=== PATIENT | female | born 1950 | race African-American/Black ===

== ENCOUNTER 2018-03-24 14:26 | Emergency (ER) | payer MEDICARE, OTHER ==
[2018-03-24] MEDS ORDERED: OXYCODONE-ACETAMINOPHEN 5-325 MG TABLET PO ONE (14:54)
--- NOTE | 2018-03-24 14:56 | ER Document Report ---
ED Medical Screen (RME) - General Chief Complaint: Headache >24 hrs old Stated Complaint: HEADACHE Time Seen by Provider: 03/24/18 14:53 Notes: 67 years old female with a history of CVA x2 multiple sclerosis, presents with occipital headache and left upper neck pain blurring of vision for the last 2 days. Progressively increase in intensity. No pronator drift. Pupils were pupils were 2 mm in size reactive normal extraocular muscles movement. TRAVEL OUTSIDE OF THE [place] IN LAST 30 DAYS: No - Related Data Allergies/Adverse Reactions: No Known Allergies Allergy (Verified 03/24/18 14:41) Physical Exam - Vital signs Vitals: Temp Pulse Resp BP Pulse Ox 98.3 F 71 18 154/82 H 100 03/24/18 14:35 03/24/18 14:35 03/24/18 14:35 03/24/18 14:35 03/24/18 14:35 Course - Vital Signs Vital signs: Temp Pulse Resp BP Pulse Ox 98.3 F 71 18 154/82 H 100 03/24/18 14:35 03/24/18 14:35 03/24/18 14:35 03/24/18 14:35 03/24/18 14:35
--- NOTE | 2018-03-24 15:39 | RADIOLOGY REPORT (SQ) ---
EXAM DESCRIPTION: CT HEAD WITHOUT COMPLETED DATE/TIME: 03/24/2018 3:29 pm REASON FOR STUDY: Headache, neck pain, previous history of stroke COMPARISON: None. TECHNIQUE: Axial images acquired through the brain without intravenous contrast. Images reviewed wi th bone, brain and subdural windows. Additional sagittal and coronal reconstructions were generated. Images stored on PACS. All CT scanners at this facility use dose modulation, iterative reconstruction, and/or weight based d osing when appropriate to reduce radiation dose to as low as reasonably achievable (ALARA). [facility]: Dose Right [facility]: CareDose [facility]: Dose Right [facility]: Teradose 4D [facility]: [employer] RADIATION DOSE: CT Rad equipment meets quality standard of care and radiation dose reduction techniq ues were employed. CTDIvol: 53.2 mGy. DLP: 1177 mGy-cm. mGy. LIMITATIONS: None. FINDINGS: VENTRICLES: Normal size and contour. CEREBRUM: No masses. No hemorrhage. No midline shift. No evidence for acute infarction. Normal gra y/white matter differentiation. Subtle encephalomalacic hypodensity of the right frontal lobe. CEREBELLUM: No masses. No hemorrhage. No alteration of density. No evidence for acute infarction. EXTRAAXIAL SPACES: No fluid collections. No masses. ORBITS AND GLOBE: No intra- or extraconal masses. Normal contour of globe without masses. CALVARIUM: No fracture. PARANASAL SINUSES: No fluid or mucosal thickening. SOFT TISSUES: No mass or hematoma. OTHER: No other significant finding. IMPRESSION: No acute intracranial pathology. Subtle encephalomalacia of the right frontal lobe, of uncertain acuity although in keeping with stated history of prior infarction. Consider MRI to more s ensitively evaluate acute diffusion restricting infarction. EVIDENCE OF ACUTE STROKE: NO. COMMENT: Quality ID # 436: Final reports with documentation of one or more dose reduction techniques (e.g., Automated exposure control, adjustment of the mA and/or kV according to patient size, use of iterative reconstruction technique) TECHNICAL DOCUMENTATION: JOB ID: [id number]- All Rights Reserved Reading location - IP/workstation name: [email or web address]
[2018-03-24 16:22] LABS: ABSOLUTE EOSINOPHILS # (AUTO) 0.1 10^3/uL (0.0-0.6); ABSOLUTE LYMPHOCYTES (AUTO) 0.4 10^3/uL (0.5-4.7); ABSOLUTE MONOCYTES (AUTO) 0.3 10^3/uL (0.1-1.4); ABSOLUTE NEUT (AUTO) 5.8 10^3/uL (1.7-8.2); BASOPHILS % (AUTO) 0.2 % (0-2); EOSINOPHILS % (AUTO) 0.8 % (0-6); HEMATOCRIT 40.4 % (36.0-47.0); HEMOGLOBIN 13.8 g/dL (12.0-15.5); LYMPHOCYTES % (AUTO) 6.5 % (13-45); MEAN CORPUSCULAR HEMOGLOBIN 31.2 pg (27.0-33.4); MEAN CORPUSCULAR HGB CONC 34.2 g/dL (32.0-36.0); MEAN CORPUSCULAR VOLUME 91 fl (80-97); MONOCYTES % (AUTO) 4.7 % (3-13); PLATELET COUNT 283 10^3/uL (150-450); RED BLOOD COUNT 4.43 10^6/uL (3.72-5.28); SEGMENTED NEUTROPHILS % (AUTO) 87.8 % (42-78); TOTAL CELLS COUNTED % (AUTO) 100 %; WHITE BLOOD COUNT 6.6 10^3/uL (4.0-10.5)
[2018-03-24 16:40] LABS: ALANINE AMINOTRANSFERASE 19 U/L (9-52); ALBUMIN 4.5 g/dL (3.5-5.0); ALKALINE PHOSPHATASE 122 U/L (38-126); ANION GAP 12 (5-19); ASPARTATE AMINO TRANSFERASE 18 U/L (14-36); BILIRUBIN,DIRECT 0.2 mg/dL (0.0-0.4); BILIRUBIN,TOTAL 0.3 mg/dL (0.2-1.3); BLOOD UREA NITROGEN 6 mg/dL (7-20); CALCIUM 10.1 mg/dL (8.4-10.2); CARBON DIOXIDE 24 mmol/L (22-30); CHLORIDE 104 mmol/L (98-107); GLUCOSE 124 mg/dL (75-110); POTASSIUM 4.3 mmol/L (3.6-5.0); SODIUM 140.2 mmol/L (137-145)
[2018-03-24] MEDS ORDERED: METOCLOPRAMIDE HCL INJ/PF 10 MG/2 ML SDV IV ONE (16:52)
[2018-03-24] MEDS ORDERED: DIPHENHYDRAMINE HCL 50 MG/ML VIAL IV ONE (16:53)
[2018-03-24] MEDS ORDERED: KETOROLAC TROMETHAMINE INJ/PF 30 MG/1 ML SDV IV ONE (16:53)
[2018-03-24 17:00] LABS: ERYTHROCYTE SEDIMENTATION RATE 31 mm/hr (0-30)
--- NOTE | 2018-03-24 18:25 | ER Document Report ---
ED Headache - General Chief Complaint: Headache >24 hrs old Stated Complaint: HEADACHE Time Seen by Provider: 03/24/18 14:53 Mode of Arrival: Ambulatory Information source: Patient, Relative TRAVEL OUTSIDE OF THE [place] IN LAST 30 DAYS: No - HPI Patient complains to provider of: Other - 67-year-old female past medical history significant for multiple sclerosis in addition to chronic pain and hypertension the presents for evaluation of persistent headache which started in the left side of her neck and is now involving the area around her eyeballs. She denies any fever associated with this cough chest pain fevers chills has had similar headaches in the past but it is more intense and more persistent than has been previously. She also has been noting that she is having increasing forgetfulness over the last several months and occasional falls. - Related Data Allergies/Adverse Reactions: No Known Allergies Allergy (Verified 03/24/18 14:41) Past Medical History - General Information source: Patient, Relative - Social History Smoking Status: Current Every Day Smoker Frequency of alcohol use: None Drug Abuse: None Family History: Other - Multiple sclerosis Patient has suicidal ideation: No Patient has homicidal ideation: No - Past Medical History Cardiac Medical History: Reports: Hx Hypercholesterolemia, Hx Hypertension Pulmonary Medical History: Reports: Hx COPD Neurological Medical History: Reports: Hx Migraine Endocrine Medical History: Reports: Hx Diabetes Mellitus Type 2 Renal/ Medical History: Denies: Hx Peritoneal Dialysis Past Surgical History: Reports: Hx Abdominal Surgery - 4 ft of intestines removed, colostomy and revised, Hx Appendectomy, Hx Cholecystectomy, Hx Hysterectomy Review of Systems - Review of Systems -: Yes All other systems reviewed and negative Physical Exam - Vital signs Vitals: Temp Pulse Resp BP Pulse Ox 98.3 F 71 18 154/82 H 100 03/24/18 14:35 03/24/18 14:35 03/24/18 14:35 03/24/18 14:35 03/24/18 14:35 - General General appearance: Appears well, Alert - HEENT Head: Normocephalic, Atraumatic Eyes: Normal Pupils: PERRL - Respiratory Respiratory status: No respiratory distress Chest status: Nontender Breath sounds: Normal Chest palpation: Normal - Cardiovascular Rhythm: Regular Heart sounds: Normal auscultation Murmur: No - Abdominal Inspection: Normal Distension: No distension Bowel sounds: Normal Tenderness: Nontender Organomegaly: No organomegaly - Back Back: Normal, Nontender - Extremities General upper extremity: Normal inspection, Nontender, Normal color, Normal ROM , Normal temperature General lower extremity: Normal inspection, Nontender, Normal color, Normal ROM , Normal temperature, Normal weight bearing. No: Joni's sign - Neurological Neuro grossly intact: Yes Cognition: Normal Orientation: AAOx4 Gume Coma Scale Eye Opening: Spontaneous Gume Coma Scale Verbal: Oriented [place] Coma Scale Motor: Obeys Commands Gume Coma Scale Total: 15 Speech: Normal Motor strength normal: LUE, RUE, LLE, RLE Sensory: Normal - Psychological Associated symptoms: Normal affect, Normal mood Course - Re-evaluation Re-evalutation: 03/24/18 18:24 67-year-old female presents for evaluation of persistent headache over last several days. She is a frontal headache as well as headache in the side of her neck. She has no focal deficits at this time. She does have a history of MS, through triage she had labs drawn as well as a CT of her head performed all of which were nondiagnostic. We will administer analgesia for headache including Toradol Reglan and Benadryl. We will plan for MRI for investigation of further lesions of the brain and potential worsening ischemic disease. We will plan for reassessment following medication and imaging. 03/24/18 20:05 Patient's symptoms improved greatly after administration of analgesia. She had an MRI which was consistent with her known diagnosis of multiple sclerosis. She had an old infarct but no acute new infarcts identified. Neurologically she is at her baseline, because I believe she would benefit from a brief period of headache control and relief will give prescription for Fioricet and as needed [place]. We will give her a referral to the anesthesiologist and pain specialist for possible consideration of injections. We will discharge in the care of her daughter with return precautions. - Vital Signs Vital signs: Temp Pulse Resp BP Pulse Ox 98.3 F 71 11 L 138/61 H 87 L 03/24/18 14:35 03/24/18 14:35 03/24/18 18:02 03/24/18 18:02 03/24/18 19:05 - Laboratory Result Diagrams: 03/24/18 16:07 03/24/18 16:07 Laboratory results interpreted by me: 03/24/18 03/24/18 16:07 16:07 RDW 15.0 H Seg Neutrophils % 87.8 H Lymphocytes % 6.5 L Absolute Lymphocytes 0.4 L ESR 31 H BUN 6 L Glucose 124 H Discharge - Discharge Clinical Impression: Muscle spasm, Multiple sclerosis, Tension headache Headache Qualifiers: Headache type: unspecified Headache chronicity pattern: unspecified pattern Intractability: not intractable Qualified Code(s): R51 - Headache Condition: Good Disposition: HOME, SELF-CARE Instructions: Tension Headache ([facility]) Additional Instructions: You were seen today in the emergency department for your persistent headache. I believe that your headache is a result of the tension in the muscles attached to your neck on the left side. This could be part of your multiple sclerosis. You had an evaluation including a physical exam as well as an MRI and a CT scan of your head as well as blood work. These are consistent with your previous known issues but they do not show any new obvious strokes or injuries. I do think it will be important for you to follow-up with a neurologist in the coming weeks. You have been given a referral to a local anesthesiologist who is a pain specialist who may be able to help with your muscle spasms in the neck. Return for worsening fevers or chills, inability to eat or drink, or if your headache persist despite the use of medications. Use the medications prescribed to you only as needed for your headache. Prescriptions: Butalb/Acetaminophen/Caffeine [Fioricet 50-300-40 mg Capsule] 1 cap PO Q4 PRN # 30 cap PRN Reason: Hydrocodone/Acetaminophen [[place] 5-325 mg Tablet] 2 tab PO Q8 PRN #12 tab PRN Reason: Referrals: CARMEN BETANCUR MD [ACTIVE STAFF] - Follow up as needed
--- NOTE | 2018-03-24 19:17 | RADIOLOGY REPORT (SQ) ---
EXAM DESCRIPTION: MRI HEAD WITHOUT COMPLETED DATE/TIME: 03/24/2018 6:58 pm REASON FOR STUDY: concern for new lesions COMPARISON: CT 03/24/2018 TECHNIQUE: Multiplanar imaging includes non-contrasted T1, T2, FLAIR, and diffusion with ADC map seq uences. Images stored on PACS. LIMITATIONS: None. FINDINGS: ANATOMY: No anomalies. Normal vascular flow voids. Pituitary fossa normal. CSF SPACES: Normal in size and contour. No hemorrhage. CEREBRUM: Small area of encephalomalacia in the posterior right frontal lobe. Prominent increased FL AIR signal in the periventricular white matter, right more than left. No hemorrhage. No acute infar ction. POSTERIOR FOSSA: No signal alteration. No hemorrhage. No edema, masses or mass effect. Internal shan tory canals, cerebello-pontine angles, mastoids normal. DIFFUSION IMAGING: Negative for acute or sub-acute infarction. ORBITS: No masses. Globes normal. PARANASAL SINUSES: No fluid levels. Mucosa normal. OTHER: No other significant finding. IMPRESSION: 1. Old right frontal infarction. 2. Considerable increased FLAIR signal in the periventricular white matter concerning for multiple s clerosis. 3. No acute infarction. EVIDENCE OF ACUTE STROKE: NO. TECHNICAL DOCUMENTATION: JOB ID: [id number] [employer]- All Rights Reserved Reading location - IP/workstation name: [email or web address]
[2018-03-24 19:45] VITALS: BP 138/61
== END 2018-03-24 20:25 | disposition home or self-care (01) ==
LOC: ER 14:26
DX: G44.209 Tension-type headache, unspecified, not intractable (principal); G35 Multiple sclerosis; M62.838 Other muscle spasm; I10 Essential (primary) hypertension; R41.3 Other amnesia; J44.9 Chronic obstructive pulmonary disease, unspecified; E11.9 Type 2 diabetes mellitus without complications; F17.200 Nicotine dependence, unspecified, uncomplicated; Z91.81 History of falling; Z86.73 Personal history of transient ischemic attack (TIA), and cerebral infarction without residual deficits
CPT/HCPCS: 99284; 96374; 96375; 36415; 85025; 85652; 80053; 70551; 70450; J1200; J1885; J2765; A9270

== ENCOUNTER → 2018-06-27 | Outpatient (CLI) | payer MEDICARE, OTHER ==
--- NOTE | 2018-06-27 19:28 | RADIOLOGY REPORT (SQ) ---
EXAM DESCRIPTION: MRI THORACIC SPINE WITHOUT COMPLETED DATE/TIME: 06/27/2018 3:46 pm REASON FOR STUDY: RADICULOPATHY LUMBAR REGION, PAIN IN THORACIC M54.6 PAIN IN THORACIC SPINE M54.17 RADICULOPATHY, LUMBOSACRAL REGION COMPARISON: None. TECHNIQUE: Sagittal and Axial imaging includes T1, T2, STIR and gradient echo sequences. LIMITATIONS: Motion. FINDINGS: LOCALIZER: No worrisome findings. ALIGNMENT: Exaggerated kyphosis. Rotary scoliosis. VERTEBRAE: Intact. BONE MARROW: Normal. No marrow replacement or reactive changes. HARDWARE: None in the spine. CORD: Normal in size and signal intensity. SOFT TISSUES: No soft tissue masses. THORACIC DISCS T1-T12: Mild degenerative changes in the disc at multiple levels. No evidence of acut e disc herniation or cord compression. LOWER CERVICAL: Incompletely imaged. No significant spinal stenosis or exit foraminal stenosis. UPPER LUMBAR: See separate report of the same date. OTHER: No other significant finding. IMPRESSION: Mild degenerative changes. No acute findings. TECHNICAL DOCUMENTATION: JOB ID: [id number]- All Rights Reserved Reading location - IP/workstation name: [email or web address]
--- NOTE | 2018-06-27 19:33 | RADIOLOGY REPORT (SQ) ---
EXAM DESCRIPTION: MRI LUMBAR SPINE WITHOUT COMPLETED DATE/TIME: 06/27/2018 3:46 pm REASON FOR STUDY: RADICULOPATHY LUMBAR REGION, PAIN IN THORACIC M54.6 PAIN IN THORACIC SPINE M54.17 RADICULOPATHY, LUMBOSACRAL REGION COMPARISON: None. TECHNIQUE: Sagittal and Axial imaging includes T1, T2, STIR and gradient echo sequences. Coronal T2/ HASTE imaging. LIMITATIONS: Motion. FINDINGS: VISUALIZED UPPER ABDOMEN: Limited evaluation. No acute or suspicious findings suggested. SEGMENTATION: No transitional anatomy. The lowest well-developed disc space is labeled L5-S1. ALIGNMENT: Grade 1 spondylolisthesis L4- 5. VERTEBRAE: Intact. BONE MARROW: Normal. No marrow replacement or reactive changes. DISC SIGNAL: Desiccation multiple levels. POSTERIOR ELEMENTS: Generally intact. No pars defect evident. HARDWARE: None in the spine. CORD AND CONUS: Normal in size and signal intensity. Conus at the appropriate level. SOFT TISSUES: No aortic aneurysm seen. No bulky retroperitoneal adenopathy or mass. No paraspinal mas s or fluid. L1-L2: Facet arthropathy. No significant stenosis. L2-L3: Disc bulge and facet arthropathy. No significant stenosis. L3-L4: Mild spinal stenosis due to disc bulge and facet arthropathy. Mild neural foraminal narrowing bilaterally. L4-L5: Moderate spinal stenosis due to disc bulge, facet arthropathy and malalignment. Mild neural f oraminal narrowing bilaterally. L5-S1: Disc bulge and facet arthropathy. Mild neural foraminal narrowing bilaterally. LOWER THORACIC: See separate report. SACRUM: Visualized upper sacrum intact. OTHER: No other significant findings. IMPRESSION: Spondylosis, facet arthropathy and malalignment. Spinal stenosis at multiple levels, mo re advanced at L4-5. TECHNICAL DOCUMENTATION: JOB ID: [id number] [employer]- All Rights Reserved Reading location - IP/workstation name: [email or web address]
== END ==
LOC: RAD 14:25
PROVIDERS: ATTEND Physician Assistant
DX: M51.37 Other intervertebral disc degeneration, lumbosacral region (principal); M54.6 Pain in thoracic spine; M54.17 Radiculopathy, lumbosacral region; M51.84 Other intervertebral disc disorders, thoracic region
CPT/HCPCS: 72146; 72148

== ENCOUNTER 2019-01-09 12:47 | Emergency (ER) | payer MEDICARE ==
--- NOTE | 2019-01-09 12:57 | ER Document Report ---
ED Medical Screen (RME) - General Stated Complaint: POSSIBLE STROKE Time Seen by Provider: 01/09/19 12:54 Primary Care Provider: ROLA ALTAMIRANO PA-C [Primary Care Provider] - Follow up as needed Notes: This 68-year-old female with a history of stroke and MS presents to the emergency department with sudden onset of right temporal pain she was in congregation. Reports it felt like a NSAIDs stinging her in her amish. Reports that happened 3 times while she was at congregation. Also reports her right hand was tingling this morning she also reports some weakness on the right side. Patient slightly weaker on the right side with contract preparer right side of her lip with very slightly droop. I have greeted and performed a rapid initial assessment of this patient. A comprehensive ED assessment and evaluation of the patient, analysis of test results and completion of the medical decision making process will be conducted by additional ED providers. Dictation of this chart was performed using voice recognition software; therefore, there may be some unintended grammatical errors. TRAVEL OUTSIDE OF THE [place] IN LAST 30 DAYS: No - Related Data Allergies/Adverse Reactions: No Known Allergies Allergy (Verified 03/24/18 14:41) Past Medical History - Past Medical History Cardiac Medical History: Reports: Hx Hypercholesterolemia, Hx Hypertension Pulmonary Medical History: Reports: Hx COPD Neurological Medical History: Reports: Hx Migraine Endocrine Medical History: Reports: Hx Diabetes Mellitus Type 2 Renal/ Medical History: Denies: Hx Peritoneal Dialysis Past Surgical History: Reports: Hx Abdominal Surgery - 4 ft of intestines removed, colostomy and revised, Hx Appendectomy, Hx Cholecystectomy, Hx Hysterectomy Physical Exam - Vital signs Vitals: Temp Pulse Resp BP Pulse Ox 98.4 F 70 18 181/71 H 100 01/09/19 12:51 01/09/19 12:51 01/09/19 12:51 01/09/19 12:51 01/09/19 12:51 Course - Vital Signs Vital signs: Temp Pulse Resp BP Pulse Ox 98.4 F 70 18 181/71 H 100 01/09/19 12:51 01/09/19 12:51 01/09/19 12:51 01/09/19 12:51 01/09/19 12:51 Doctor's Discharge - Discharge Referrals: ROLA ALTAMIRANO PA-C [Primary Care Provider] - Follow up as needed
--- NOTE | 2019-01-09 13:32 | RADIOLOGY REPORT (SQ) ---
EXAM DESCRIPTION: CT HEAD WITHOUT COMPLETED DATE/TIME: 01/09/2019 1:08 pm REASON FOR STUDY: SHARP PAIN, HX STROKE, NUMBNESS, WEAKNESS COMPARISON: CT brain 03/24/2018 MRI brain 03/24/2018 TECHNIQUE: Axial images acquired through the brain without intravenous contrast. Images reviewed wi th bone, brain and subdural windows. Additional sagittal and coronal reconstructions were generated. Images stored on PACS. All CT scanners at this facility use dose modulation, iterative reconstruction, and/or weight based d osing when appropriate to reduce radiation dose to as low as reasonably achievable (ALARA). [facility]: Dose Right [facility]: CareDose [facility]: Dose Right [facility]: Teradose 4D [facility]: [employer] RADIATION DOSE: CT Rad equipment meets quality standard of care and radiation dose reduction techniq ues were employed. CTDIvol: 53.2 mGy. DLP: 991 mGy-cm. mGy. LIMITATIONS: None. FINDINGS: VENTRICLES: Normal size and contour. CEREBRUM: An old right frontal lobe perisylvian infarct is present involving the cortex and subcortic al white matter. Moderate bifrontal and biparietal chronic small vessel ischemic changes present. No CT evidence of acute large territory ischemic change, acute intracranial hemorrhage, mass effect, or midline shift. CEREBELLUM: No masses. No hemorrhage. No alteration of density. No evidence for acute infarction. EXTRAAXIAL SPACES: No fluid collections. No masses. ORBITS AND GLOBE: No intra- or extraconal masses. Normal contour of globe without masses. CALVARIUM: No fracture. PARANASAL SINUSES: No fluid or mucosal thickening. SOFT TISSUES: No mass or hematoma. OTHER: No other significant finding. IMPRESSION: Old right frontal infarct. No acute findings. EVIDENCE OF ACUTE STROKE: NO. COMMENT: Pertinent findings on the imaging study reported as a CRITICAL RESULT to YANELI LAURENT at13:17 on 01/09/2019. Category of Critical Result: CT CODE STROKE Quality ID # 436: Final reports with documentation of one or more dose reduction techniques (e.g., Au tomated exposure control, adjustment of the mA and/or kV according to patient size, use of iterative reconstruction technique) TECHNICAL DOCUMENTATION: JOB ID: [id number] [employer]- All Rights Reserved Reading location - IP/workstation name: [email or web address]
[2019-01-09 13:34] LABS: ABSOLUTE LYMPHOCYTES (AUTO) 1.2 10^3/uL (0.5-4.7); ABSOLUTE MONOCYTES (AUTO) 0.3 10^3/uL (0.1-1.4); ABSOLUTE NEUT (AUTO) 5.3 10^3/uL (1.7-8.2); BASOPHILS % (AUTO) 0.5 % (0-2); EOSINOPHILS % (AUTO) 0.7 % (0-6); HEMOGLOBIN 12.4 g/dL (12.0-15.5); LYMPHOCYTES % (AUTO) 17.9 % (13-45); MEAN CORPUSCULAR HEMOGLOBIN 31.6 pg (27.0-33.4); MEAN CORPUSCULAR HGB CONC 33.6 g/dL (32.0-36.0); MEAN CORPUSCULAR VOLUME 94 fl (80-97); MONOCYTES % (AUTO) 4.9 % (3-13); PLATELET COUNT 291 10^3/uL (150-450); RED BLOOD COUNT 3.94 10^6/uL (3.72-5.28); RED CELL DISTRIBUTION WIDTH 13.4 % (11.5-14.0); TOTAL CELLS COUNTED % (AUTO) 100 %; WHITE BLOOD COUNT 6.9 10^3/uL (4.0-10.5)
[2019-01-09 13:40] LABS: INTERNATIONAL RATION (INR) 0.95; PROTHROMBIN TIME 12.7 SEC (11.4-15.4)
[2019-01-09 13:41] LABS: PARTIAL THROMBOPLASTIN TIME 28.3 SEC (23.5-35.8)
--- NOTE | 2019-01-09 13:46 | RADIOLOGY REPORT (SQ) ---
EXAM DESCRIPTION: CHEST SINGLE VIEW COMPLETED DATE/TIME: 01/09/2019 1:08 pm REASON FOR STUDY: SHARP PAIN, HX STROKE, NUMBNESS, WEAKNESS COMPARISON: None. EXAM PARAMETERS: NUMBER OF VIEWS: One view. TECHNIQUE: Single frontal radiographic view of the chest acquired. RADIATION DOSE: NA LIMITATIONS: Artifact from clothing FINDINGS: LUNGS AND PLEURA: No opacities, masses or pneumothorax. No pleural effusion. MEDIASTINUM AND HILAR STRUCTURES: No masses. Contour normal. HEART AND VASCULAR STRUCTURES: Heart normal in size. Normal vasculature. BONES: No acute findings. HARDWARE: None in the chest. OTHER: No other significant finding. IMPRESSION: NO ACUTE RADIOGRAPHIC FINDING IN THE CHEST. TECHNICAL DOCUMENTATION: JOB ID: [id number] [employer]- All Rights Reserved Reading location - IP/workstation name: [email or web address]
[2019-01-09 14:05] LABS: CREATINE KINASE MB 1.09 ng/mL (<4.55)
[2019-01-09 14:09] LABS: TROPONIN I < 0.012 ng/mL
--- NOTE | 2019-01-09 14:10 | ER Document Report ---
Entered by ARACELY MICHAEL SCRIBE 01/09/19 0805 Acting as scribe for:SHAR GROVES MD ED Neuro Symptoms/Deficit - General Chief Complaint: S/S of Possible Stroke Stated Complaint: POSSIBLE STROKE Time Seen by Provider: 01/09/19 12:54 Primary Care Provider: ROLA ALTAMIRANO PA-C [PHYSICIAN FIREFIGHTER MARINE] - Follow up as needed Mode of Arrival: Ambulatory Information source: Patient, [facility] Records Notes: Patient is a 68-year-old female with a history of migraines who presents to the emergency department today with complaints of a headache which began just prior to arrival while at [facility]. Patient mentions that about a month ago she was discharged from the [facility] for shortness of breath. She was diagnosed with PE/DVT during that visit and was put on Lovenox twice daily which she is still taking. Patient states she is on Plavix as well and has been for quite some time but she cannot remember why. She states the neurosurgeon told her that she had plaque in an artery up around her right ear that he wanted to scrape out, but this was never done. The nurses notes report the patient complained of right hand tingling this morning, right-sided weakness, and they thought they saw a droop to her right face at triage. The patient is completely alert and oriented. She does not have a headache now. She has no motor deficits noted. She is not a TPA candidate. TRAVEL OUTSIDE OF THE [place] IN LAST 30 DAYS: No - Related Data Allergies/Adverse Reactions: No Known Allergies Allergy (Verified 03/24/18 14:41) Past Medical History - General Information source: Patient, [facility] Records - Social History Smoking Status: Current Every Day Smoker Cigarette use (# per day): Yes - 1/2-1 ppd Chew tobacco use (# tins/day): No Smoking Education Provided: No Frequency of alcohol use: None Drug Abuse: None Lives with: Family Family History: Reviewed & Not Pertinent, Other - Past Medical History Cardiac Medical History: Reports: Hx Hypercholesterolemia, Hx Hypertension Pulmonary Medical History: Reports: Hx COPD Neurological Medical History: Reports: Hx Migraine Endocrine Medical History: Reports: Hx Diabetes Mellitus Type 2 - Borderline, diet controlled Past Surgical History: Reports: Hx Abdominal Surgery - 4 ft of intestines r emoved, colostomy and revised, Hx Appendectomy, Hx Cholecystectomy, Hx Hysterectomy Review of Systems - Review of Systems Constitutional: No symptoms reported EENT: No symptoms reported Cardiovascular: No symptoms reported Respiratory: No symptoms reported Gastrointestinal: No symptoms reported Genitourinary: No symptoms reported Female Genitourinary: No symptoms reported Musculoskeletal: No symptoms reported Skin: No symptoms reported Hematologic/Lymphatic: No symptoms reported Neurological/Psychological: See HPI, Headaches -: Yes All other systems reviewed and negative Physical Exam - Vital signs Vitals: Temp Pulse Resp BP Pulse Ox 98.4 F 70 18 181/71 H 100 01/09/19 12:51 01/09/19 12:51 01/09/19 12:51 01/09/19 12:51 01/09/19 12:51 - Notes Notes: Physical Exam: General: Alert, appears well. HEENT: Normocephalic. Atraumatic. PERRL. Extraocular movements intact. Oropharynx clear. Neck: Supple. Non-tender. Respiratory: No respiratory distress. Clear and equal breath sounds bilaterally. Cardiovascular: Regular rate and rhythm. Abdominal: Normal Inspection. Non-tender. No distension. Normal Bowel Sounds. Back: No gross abnormalities. Extremities: Moves all four extremities. Upper extremities: Normal inspection. Normal ROM. Patient is actively using both extremities and hands to digging around in her purse and move things back and forth with no limitation on her dexterity. Lower extremities: Normal inspection. No edema. Normal ROM. She does move both of her lower extremities as she moved back and forth on the stretcher as she reaches for her purse and tries to put things back in their place. Neurological: Normal cognition. AAOx4. Normal speech. There is no facial asymmetry noted. Psychological: Normal affect. Normal Mood. Skin: Warm. Dry. Normal color. 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 There is moderate bifrontal and biparietal chronic small vessel ischemic changes, which are unusual for the patient's age. - EKG Interpretation by Me EKG shows normal: Sinus rhythm, Stuart, Intervals, QRS Complexes, ST-T Waves Rate: Normal - 68 Rhythm: NSR Voltage: Consistant with LVH - Transfer of Care Care transferred to following provider: Dr. Jacobsen Notes: 01/09/19 16:04 Pending MRI. If nothing acute, may go home and F/U with PCP this week. ED Alteplase [employer]/Exc Criteria - Inclusion Criteria: 1: Patient presented to ED within 3 hours of acute ischemic stroke symptom onset? -: Yes 2: Did baseline CT exclude intracranial hemorrhage and/or other risk factors? -: Yes 3: Is the age of the patient 18 years of age or greater? -: Yes : If any of the above questions are answered "NO" then stop, patient is not a candidate for Alteplase, : If all of the above questions are answered "YES" then continue with Exclusion Criteria. - Exclusion Criteria: 1: Is there evidence of intracranial hemorrhage on baseline CT? -: No 2: Is there suspicion of subarachnoid hemorrhage (even if CT negative)? -: No 3: Is there a history of serious head trauma, recent previous stroke or ID within 3 months? -: No 4: Does the patient have a clinical presentation consistent with ID or post-ID pericarditis? -: No 5: Is there history of intracranial hemorrhage? -: No 6: On repeated measurement is Systolic BP greater than 185mmHg or Diastolic BP greater that 110 mmHg and is aggressive treatment needed to reduce blood pressure to these limits (e.g. constant infusion of an anti-hypertensive)? -: No 7: Did the patient awake with stroke symptoms? -: No 8: Has the patient had a lumbar puncture or an arterial puncture at a non- compressile site within 7 days? -: No 9: With in the last 14 days did the patient have surgery or major trauma? -: No 10: Is the patient or less than 2 weeks? -: No 11: Was there any active bleeding or acute trauma? 12: Does the patient have intracranial neoplasm, arteriovenous malformation or aneurysm? 13: Does the patient have abnormal glucose (less than 50 or greater than 400mg/dl)? Record glucose in Comment. -: No 14: Patient has rapidly improving symptoms at the time Alteplase is to be Administered. -: Yes 15: Does the patient have any risks for bleeding, including but not limited to: a.: Current use of Coumadin with PT greater than 15 seconds or INR greater than 1.7. b.: Current use of Pradaxa (Dabigatran). c.: Heparin administereed within the past 48 hours and PTT elevated. d.: Platelet count less than 100,000/mm. e.: Major surgery or serious trauma within 14 days. f.: Gastrointestinal or gynecological urinary bleeding within 14 days. g.: Myocardial Infarction (ID) within 3 months. -: No : If the answer to any of the above questions is "YES" then stop, the patie nt is not a candidate for Alteplase. : If the answer to all of the above questions is "NO" then the patient may be eligible for the Administration of Alteplase. : If the patient is noted to have seizure activity at onset of Stroke symptoms; Consult Neurologist for further evaluation. - The patient is: -: Included and is eligible to receive Alteplase. *Initiate bed placement at higher level of care* --: No Reviewed risks & benefits of thrombolytic therapy: I have reviewed the risks and benefits of thrombolytic therapy with the patient and/or his/her family. -: Excluded and not eligible to receive Alteplase for the above exclusions. --: Yes -: Excluded and not eligible to receive Alteplase for other reasons (specify in comments): - Diagnosis of TIA: -: Patient presented with transient symptoms that are now resolved and no other neurologic findings are currently present. List symptoms in comments. -: Patient is NOT a candidate for tPA. -: ____(put name in comment) has been consulted for admission and continued evaluation of risk factor assessment. Discharge - Discharge Clinical Impression: Cerebrovascular disease Headache Qualifiers: Headache type: unspecified Headache chronicity pattern: acute headache Intractability: not intractable Qualified Code(s): R51 - Headache High blood pressure Qualifiers: Hypertension type: essential hypertension Qualified Code(s): I10 - Essential (primary) hypertension Condition: Stable Disposition: HOME, SELF-CARE Instructions: Headache ([facility]) Prescriptions: Butalb/Acetaminophen/Caffeine [Fioricet 50-300-40 mg Capsule] 1 cap PO Q4 PRN #20 cap PRN Reason: for pain Referrals: ROLA ALTAMIRANO PA-C [PHYSICIAN FIREFIGHTER [employer]INE] - Follow up as needed Scribe Attestation: 01/09/19 16:03 I personally performed the services described in the documentation, reviewed and edited the documentation which was dictated to the scribe in my presence, and it accurately records my words and actions. I personally performed the services described in the documentation, reviewed and edited the documentation which was dictated to the scribe in my presence, and it accurately records my words and actions.
[2019-01-09 14:23] LABS: ALBUMIN 4.3 g/dL (3.5-5.0); ALKALINE PHOSPHATASE 106 U/L (38-126); ANION GAP 12 (5-19); ASPARTATE AMINO TRANSFERASE 37 U/L (14-36); BILIRUBIN,DIRECT 0.1 mg/dL (0.0-0.4); BILIRUBIN,TOTAL 0.3 mg/dL (0.2-1.3); BLOOD UREA NITROGEN 7 mg/dL (7-20); CALCIUM 9.3 mg/dL (8.4-10.2); CARBON DIOXIDE 23 mmol/L (22-30); CHLORIDE 93 mmol/L (98-107); CREATINE KINASE 101 U/L (30-135); GLUCOSE 85 mg/dL (75-110); POTASSIUM 4.4 mmol/L (3.6-5.0); TOTAL PROTEIN 7.5 g/dL (6.3-8.2)
--- NOTE | 2019-01-09 16:32 | RADIOLOGY REPORT (SQ) ---
EXAM DESCRIPTION: MRI HEAD WITHOUT COMPLETED DATE/TIME: 01/09/2019 4:11 pm REASON FOR STUDY: New headache, old CVAs, questionable MS COMPARISON: 03/24/2018 TECHNIQUE: Multiplanar imaging includes non-contrasted T1, T2, FLAIR, and diffusion with ADC map seq uences. Images stored on PACS. LIMITATIONS: None. FINDINGS: ANATOMY: No anomalies. Normal vascular flow voids. Pituitary fossa normal. CSF SPACES: Atrophy induced prominence of ventricles and CSF spaces. CEREBRUM: High signal intensity scattered throughout the white matter on FLAIR imaging with distribut ion suggesting micro-vascular ischemic changes, right greater than left. No evidence of hemorrhage, mass, or extraaxial fluid collection. POSTERIOR FOSSA: No signal alteration. No hemorrhage. No edema, masses or mass effect. Internal shan tory canals, cerebello-pontine angles, mastoids normal. DIFFUSION IMAGING: Negative for acute or sub-acute infarction. ORBITS: No masses. Globes normal. PARANASAL SINUSES: No fluid levels. Mucosa normal. OTHER: Small right mastoid effusion. IMPRESSION: Negative for acute or sub-acute infarction. EVIDENCE OF ACUTE STROKE: NO. TECHNICAL DOCUMENTATION: JOB ID: [id number] 2010 [employer]- All Rights Reserved Reading location - IP/workstation name: [email or web address]
--- NOTE | 2019-01-09 17:46 | EKG REPORT ---
SEVERITY:- ABNORMAL ECG - SINUS RHYTHM CONSIDER LEFT VENTRICULAR HYPERTROPHY : Confirmed by: Carlos Russo MD 09-Jan-2019 17:45:16
--- NOTE | 2019-01-09 18:18 | ER Document Report ---
ED General - General Chief Complaint: S/S of Possible Stroke Stated Complaint: POSSIBLE STROKE Time Seen by Provider: 01/09/19 12:54 Primary Care Provider: ROLA ALTAMIRANO PA-C [PHYSICIAN FITNESS WORKER] - Follow up as needed Mode of Arrival: Ambulatory TRAVEL OUTSIDE OF THE [place] IN LAST 30 DAYS: No - HPI Notes: I assumed care of this patient from Dr. Horner at the end of shift pending MRI and disposition. Please see his note for full history and physical. Briefly, this is a 68-year-old female who presents today with a complaint of intermittent brief episodes of headache. She has no neurologic complaints otherwise at this time. She denies any weakness. She denies any visual or speech changes. Dr. Horner's evaluation was unremarkable. MRI was ordered with a plan to discharge if MRI was negative for acute findings. - Related Data Allergies/Adverse Reactions: No Known Allergies Allergy (Verified 03/24/18 14:41) Past Medical History - General Information source: Patient, [facility] Records - Social History Smoking Status: Current Every Day Smoker Cigarette use (# per day): Yes - 1/2-1 ppd Chew tobacco use (# tins/day): No Frequency of alcohol use: None Drug Abuse: None Lives with: Family Family History: Reviewed & Not Pertinent, Other Patient has suicidal ideation: No Patient has homicidal ideation: No - Past Medical History Cardiac Medical History: Reports: Hx Hypercholesterolemia, Hx Hypertension Pulmonary Medical History: Reports: Hx COPD Neurological Medical History: Reports: Hx Migraine Endocrine Medical History: Reports: Hx Diabetes Mellitus Type 2 - Borderline, diet controlled Renal/ Medical History: Denies: Hx Peritoneal Dialysis Past Surgical History: Reports: Hx Abdominal Surgery - 4 ft of intestines removed, colostomy and revised, Hx Appendectomy, Hx Cholecystectomy, Hx Hysterectomy Physical Exam - Vital signs Vitals: Temp Pulse Resp BP Pulse Ox 98.4 F 70 18 181/71 H 100 01/09/19 12:51 01/09/19 12:51 01/09/19 12:51 01/09/19 12:51 01/09/19 12:51 - Neurological Neuro grossly intact: Yes Cognition: Normal, Other - There is no motor, sensory or cerebellar deficits. Nonfocal neurologic exam. GCS is 15. NIH stroke score is 0. Orientation: AAOx4 [place] Coma Scale Eye Opening: Spontaneous [place] Coma Scale Verbal: Oriented G[place] Coma Scale Motor: Obeys Commands Gume Coma Scale Total: 15 Speech: Normal Motor strength normal: LUE, RUE, LLE, RLE Sensory: Normal Course - Re-evaluation Re-evalutation: 01/09/19 18:17 Patient is doing well. MRI reviewed. No evidence of acute CVA. Patient is stable for discharge. Will put her on Fioricet for headaches. Follow-up dis cussed with patient. - Vital Signs Vital signs: Temp Pulse Resp BP Pulse Ox 98.4 F 67 21 H 154/85 H 99 01/09/19 12:51 01/09/19 13:00 01/09/19 13:00 01/09/19 13:00 01/09/19 13:00 - Laboratory Result Diagrams: 01/09/19 13:18 01/09/19 13:18 Laboratory results interpreted by me: 01/09/19 13:18 Sodium 127.9 L Chloride 93 L AST 37 H Discharge - Discharge Clinical Impression: Cerebrovascular disease Headache Qualifiers: Headache type: unspecified Headache chronicity pattern: acute headache Intractability: not intractable Qualified Code(s): R51 - Headache High blood pressure Qualifiers: Hypertension type: essential hypertension Qualified Code(s): I10 - Essential (primary) hypertension Condition: Stable Disposition: HOME, SELF-CARE Instructions: Headache ([facility]) Prescriptions: Butalb/Acetaminophen/Caffeine [Fioricet 50-300-40 mg Capsule] 1 cap PO Q4 PRN #20 cap PRN Reason: for pain Referrals: ROLA ALTAMIRANO PA-C [PHYSICIAN FITNESS WORKER] - Follow up as needed Scribe Attestation: 01/09/19 16:03 I personally performed the services described in the documentation, reviewed and edited the documentation which was dictated to the scribe in my presence, and it accurately records my words and actions.
[2019-01-09 18:49] VITALS: BP 138/122
== END 2019-01-09 18:49 | disposition home or self-care (01) ==
LOC: ER 12:47
DX: I10 Essential (primary) hypertension (principal); R51 Headache; R20.2 Paresthesia of skin; R53.1 Weakness; J44.9 Chronic obstructive pulmonary disease, unspecified; F17.210 Nicotine dependence, cigarettes, uncomplicated; I82.409 Acute embolism and thrombosis of unspecified deep veins of unspecified lower extremity; I26.99 Other pulmonary embolism without acute cor pulmonale; Z79.02 Long term (current) use of antithrombotics/antiplatelets; Z86.73 Personal history of transient ischemic attack (TIA), and cerebral infarction without residual deficits; Z86.69 Personal history of other diseases of the nervous system and sense organs
CPT/HCPCS: 36415; 70450; 70551; 71045; 80053; 82550; 82553; 82962; 84484; 85025; 85610; 85730; 93005; 93010; 99284

== ENCOUNTER 2019-01-11 08:38 | Emergency (ER) | payer MEDICARE ==
--- NOTE | 2019-01-11 08:58 | ER Document Report ---
ED General - General Stated Complaint: WEAKNESS Time Seen by Provider: 01/11/19 08:45 Primary Care Provider: CHRISTIANO RENE PA-C [Primary Care Provider] - Follow up as needed Mode of Arrival: Ambulatory Information source: Patient Notes: Chief complaint: Shivering 68 years old female with a history of multiple sclerosis presents today with a sensation of shivering last night. She was told that she is borderline diabetic, went to sleep without eating anything. She thinks her sugar dropped. She was alert. Currently has no fever chills or other constitutional symptoms. History of complain:( obtained from----patient) Onset: As above Duration: As described above Severity: Mild Quality: None known Context: Unknown Exacerbating factor and relieving factors: None REVIEW OF SYSTEMS: CONSTITUTIONAL : Denies fever, chills, or sweats. Denies recent illness. EENT: Denies eye, ear, throat, or mouth pain or symptoms. Denies nasal or sinus congestion or discharge. Denies throat, tongue, or mouth swelling or difficulty swallowing. CARDIOVASCULAR: Denies chest pain. Denies palpitations or racing or irregular heart beat. Denies ankle edema. RESPIRATORY: Denies cough, cold, or chest congestion. Denies shortness of breath, difficulty breathing, or wheezing. GASTROINTESTINAL: Denies distention. Denies nausea, vomiting, or diarrhea. Denies blood in vomitus, stools, or per rectum. Denies black, tarry stools. Denies constipation. GENITOURINARY: Denies difficulty urinating, painful urination, burning, frequency, blood in urine, or discharge. FEMALE GENITOURINARY: Denies vaginal bleeding, heavy or abnormal periods, irregular periods. Denies vaginal discharge or odor. MUSCULOSKELETAL: Denies back or neck pain or stiffness. Denies joint pain or swelling. SKIN: Denies rash, lesions or sores. HEMATOLOGIC : Denies easy bruising or bleeding. LYMPHATIC: Denies swollen, enlarged glands. NEUROLOGICAL: Denies confusion or altered mental status. Denies passing out or loss of consciousness. Denies dizziness or lightheadedness. Denies headache. Denies weakness or paralysis or loss of use of either side. Denies problems with gait or speech. Denies sensory loss, numbness, or tingling. Denies seizures. PSYCHIATRIC: Denies anxiety or stress. Denies depression, suicidal ideation, or homicidal ideation. ALL OTHER SYSTEMS REVIEWED AND NEGATIVE. PHYSICAL EXAMINATION: GENERAL: Well-appearing, well-nourished and in no acute distress. HEAD: Atraumatic, normocephalic. EYES: Pupils equal round and reactive to light, extraocular movements intact, conjunctiva are normal. ENT: Nares patent, oropharynx clear without exudates. Moist mucous membranes. NECK: Normal range of motion, supple without lymphadenopathy LUNGS: Breath sounds clear to auscultation bilaterally and equal. No wheezes rales or rhonchi. HEART: Regular rate and rhythm without murmurs ABDOMEN: Soft, nontender, nondistended abdomen. No guarding, no rebound. No masses appreciated. Examination of genitals-deferred Musculoskeletal: Normal range of motion, no pitting or edema. No cyanosis. NEUROLOGICAL: Cranial nerves grossly intact. Normal speech, normal gait. Normal sensory, motor exams PSYCH: Normal mood, normal affect. SKIN: Warm, Dry, normal turgor, no rashes or lesions noted. Dictation was performed using [employer] voice recognition software TRAVEL OUTSIDE OF THE [place] IN LAST 30 DAYS: No - HPI Notes: Dictated - Related Data Allergies/Adverse Reactions: No Known Allergies Allergy (Verified 03/24/18 14:41) Past Medical History - General Information source: Patient - Social History Smoking Status: Unknown if Ever Smoked Chew tobacco use (# tins/day): No Frequency of alcohol use: None Drug Abuse: None Lives with: Family Family History: Reviewed & Not Pertinent, Other Patient has suicidal ideation: No Patient has homicidal ideation: No - Past Medical History Cardiac Medical History: Reports: Hx Hypercholesterolemia, Hx Hypertension Pulmonary Medical History: Reports: Hx COPD Neurological Medical History: Reports: Hx Migraine Endocrine Medical History: Reports: Hx Diabetes Mellitus Type 2 - Borderline, diet controlled Renal/ Medical History: Denies: Hx Peritoneal Dialysis Past Surgical History: Reports: Hx Abdominal Surgery - 4 ft of intestines removed, colostomy and revised, Hx Appendectomy, Hx Cholecystectomy, Hx Hysterectomy Review of Systems - Review of Systems Notes: Dictated Physical Exam - Vital signs Vitals: Resp BP Pulse Ox 13 153/64 H 100 01/11/19 08:44 01/11/19 08:44 01/11/19 08:44 - Notes Notes: Dictated Course - Re-evaluation Re-evalutation: 01/11/19 12:49 On reexamination the daughter was in the room, she showed me her last paperwork from the primary care physician as well as hospital.. It indicates she had a PE. And the family requested to repeat the CTA to evaluate the status of the PE. - Vital Signs Vital signs: Temp Pulse Resp BP Pulse Ox 98.2 F 13 150/69 H 100 01/11/19 11:15 01/11/19 11:47 01/11/19 11:47 01/11/19 11:47 - Laboratory Result Diagrams: 01/11/19 10:31 01/11/19 10:31 Laboratory results interpreted by me: 01/11/19 01/11/19 10:31 10:31 Seg Neutrophils % 80.7 H Sodium 128.6 L Chloride 95 L Carbon Dioxide 21 L BUN 5 L - Diagnostic Test Radiology reviewed: Reports reviewed - CT brain-reported by radiologist as no acute finding VQ scan-low probability Discharge - Discharge Clinical Impression: Multiple sclerosis, Anxiousness, History of pulmonary embolism, Hyponatremia Condition: Fair Disposition: HOME, SELF-CARE Instructions: Hyponatremia ([facility]) Referrals: CHRISTIANO RENE PA-C [Primary Care Provider] - Follow up as needed
[2019-01-11 10:16] LABS: APPEARANCE,URINE SLIGHTLY-CLOUDY; BILIRUBIN,URINE NEGATIVE (NEGATIVE); COLOR,URINE YELLOW; GLUCOSE, URINE NEGATIVE (NEGATIVE); KETONES,URINE NEGATIVE (NEGATIVE); LEUKOCYTE ESTERASE,URINE NEGATIVE (NEGATIVE); NITRITE,URINE NEGATIVE (NEGATIVE); PROTEIN,URINE NEGATIVE (NEGATIVE); URINE SPECIFIC GRAVITY 1.004; UROBILINOGEN,URINE NEGATIVE mg/dL (<2.0)
[2019-01-11 10:32] LABS: URINE AMPHETAMINES SCREEN NEGATIVE; URINE BARBITURATES SCREEN NEGATIVE; URINE BENZODIAZEPINES SCREEN NEGATIVE; URINE COCAINE SCREEN NEGATIVE; URINE MARIJUANA (THC) SCREEN NEGATIVE; URINE METHADONE SCREEN NEGATIVE; URINE PHENCYCLIDINE SCREEN NEGATIVE
[2019-01-11 11:03] LABS: ABSOLUTE LYMPHOCYTES (AUTO) 0.9 10^3/uL (0.5-4.7); ABSOLUTE MONOCYTES (AUTO) 0.3 10^3/uL (0.1-1.4); ABSOLUTE NEUT (AUTO) 5.4 10^3/uL (1.7-8.2); BASOPHILS % (AUTO) 0.2 % (0-2); EOSINOPHILS % (AUTO) 0.4 % (0-6); HEMATOCRIT 38.5 % (36.0-47.0); HEMOGLOBIN 13.2 g/dL (12.0-15.5); LYMPHOCYTES % (AUTO) 14.1 % (13-45); MEAN CORPUSCULAR HEMOGLOBIN 31.6 pg (27.0-33.4); MEAN CORPUSCULAR HGB CONC 34.2 g/dL (32.0-36.0); MEAN CORPUSCULAR VOLUME 92 fl (80-97); MONOCYTES % (AUTO) 4.6 % (3-13); PLATELET COUNT 315 10^3/uL (150-450); RED BLOOD COUNT 4.18 10^6/uL (3.72-5.28); RED CELL DISTRIBUTION WIDTH 13.2 % (11.5-14.0); SEGMENTED NEUTROPHILS % (AUTO) 80.7 % (42-78); TOTAL CELLS COUNTED % (AUTO) 100 %; WHITE BLOOD COUNT 6.7 10^3/uL (4.0-10.5)
[2019-01-11 11:12] LABS: ALBUMIN 4.6 g/dL (3.5-5.0); ALKALINE PHOSPHATASE 118 U/L (38-126); ANION GAP 13 (5-19); ASPARTATE AMINO TRANSFERASE 21 U/L (14-36); BILIRUBIN,DIRECT 0.1 mg/dL (0.0-0.4); BILIRUBIN,TOTAL 0.3 mg/dL (0.2-1.3); BLOOD UREA NITROGEN 5 mg/dL (7-20); CALCIUM 10.2 mg/dL (8.4-10.2); CARBON DIOXIDE 21 mmol/L (22-30); CHLORIDE 95 mmol/L (98-107); GLUCOSE 100 mg/dL (75-110); POTASSIUM 4.7 mmol/L (3.6-5.0); TOTAL PROTEIN 7.8 g/dL (6.3-8.2)
[2019-01-11 11:13] LABS: ALCOHOL < 10 mg/dL (NONE DETECTED)
[2019-01-11 12:03] VITALS: BP 150/69
--- NOTE | 2019-01-11 12:16 | RADIOLOGY REPORT (SQ) ---
EXAM DESCRIPTION: CT HEAD WITHOUT COMPLETED DATE/TIME: 01/11/2019 11:47 am REASON FOR STUDY: HEADACHE COMPARISON: MRI of the brain without contrast 01/09/[address] of the head without contrast from 12/20. TECHNIQUE: Axial images acquired through the brain without intravenous contrast. Images reviewed wi th bone, brain and subdural windows. Additional sagittal and coronal reconstructions were generated. Images stored on PACS. All CT scanners at this facility use dose modulation, iterative reconstruction, and/or weight based d osing when appropriate to reduce radiation dose to as low as reasonably achievable (ALARA). [facility]: Dose Right [facility]: CareDose [facility]: Dose Right [facility]: Teradose 4D [facility]: Hangtime RADIATION DOSE: CT Rad equipment meets quality standard of care and radiation dose reduction techniq ues were employed. CTDIvol: 53.2 mGy. DLP: 1097 mGy-cm. mGy. LIMITATIONS: None. FINDINGS: Stable area encephalomalacia in the right frontal lobe. The confluent areas of hypoattenu ation within the supratentorial periventricular and subcortical white matter are also unchanged. The re is no acute intracranial hemorrhage, vascular territorial infarct, extra-axial fluid collection or mass effect. There is no effacement of cerebral sulci or basal subarachnoid cisterns. The barney-whi te matter differentiation outside the area encephalomalacia is preserved. The caliber of the ventric les is concordant with the degree of sulcation and unchanged from the prior CT. The orbits and globes are intact. The paranasal sinuses are clear. There is no fracture of the calv arium. IMPRESSION: Sequela of chronic ischemia. No acute intracranial abnormality. EVIDENCE OF ACUTE STROKE: NO. COMMENT: Quality ID # [id number]: Final reports with documentation of one or more dose reduction techniques (e.g., Automated exposure control, adjustment of the mA and/or kV according to patient size, use of iterative reconstruction technique) TECHNICAL DOCUMENTATION: JOB ID: [id number] [employer]- All Rights Reserved Reading location - IP/workstation name: [email or web address]
[2019-01-11] MEDS ORDERED: NORMAL SALINE 1000 ML 1,000 ML IV ONE (12:48)
--- NOTE | 2019-01-11 14:58 | RADIOLOGY REPORT (SQ) ---
EXAM DESCRIPTION: NM LUNG VENT/PERF SCAN COMPLETED DATE/TIME: 01/11/2019 2:43 pm REASON FOR STUDY: SOB COMPARISON: AP view of the chest from 01/14/2019. RADIONUCLIDE AND DOSE: 5 millicuries TC-99m MAA Intravenous 30 millicuries TC-99m DTPA Inhaled aerosol TECHNIQUE: Eight views of the lungs acquired post ventilation of DTPA aerosol. Eight matching views of the lungs acquired following injection of MAA. LIMITATIONS: None. FINDINGS: VENTILATION: There is mild central clumping of the inhaled radiotracer. PERFUSION: The distribution of the radiotracer is heterogeneous. There is no mismatched or matched s egmental perfusion/ ventilation defect. OTHER: No other finding. IMPRESSION: LOW PROBABILITY VENTILATION-PERFUSION LUNG SCAN. TECHNICAL DOCUMENTATION: JOB ID: [id number] [employer]- All Rights Reserved Reading location - IP/workstation name: [email or web address]
== END 2019-01-11 16:34 | disposition home or self-care (01) ==
LOC: ER 08:38
DX: G35 Multiple sclerosis (principal); F41.9 Anxiety disorder, unspecified; E87.1 Hypo-osmolality and hyponatremia; Z86.711 Personal history of pulmonary embolism; I10 Essential (primary) hypertension; J44.9 Chronic obstructive pulmonary disease, unspecified
CPT/HCPCS: 99285; 36415; 82962; 80307 ×2; 83735; 85025; 80053; 81001; 78582; 70450; A9540; A9567; Q9969

== ENCOUNTER 2019-01-12 15:47 | Observation (INO) | payer MEDICARE ==
--- NOTE | 2019-01-12 16:03 | ER Document Report ---
ED Medical Screen (RME) - General Chief Complaint: Fall Stated Complaint: FELL Time Seen by Provider: 01/12/19 15:55 Primary Care Provider: CHRISTIANO RENE PA-C [Primary Care Provider] - Follow up as needed Mode of Arrival: Medic Information source: Patient Notes: Patient presents emergency department after falling this morning hitting her head. Patient is taking Lovenox. Reports history of several strokes.. She is not sure why she fell. She denies change in LOC. She reports history of shortness of breath denies chest pain. Patient is answering all questions appropriately. I have greeted and performed a rapid initial assessment of this patient. A co mprehensive ED assessment and evaluation of the patient, analysis of test results and completion of the medical decision making process will be conducted by additional ED providers. Dictation of this chart was performed using voice recognition software; therefore, there may be some unintended grammatical errors. TRAVEL OUTSIDE OF THE [place] IN LAST 30 DAYS: No - Related Data Allergies/Adverse Reactions: No Known Allergies Allergy (Verified 01/12/19 15:59) Past Medical History - Past Medical History Cardiac Medical History: Reports: Hx Hypercholesterolemia, Hx Hypertension Pulmonary Medical History: Reports: Hx COPD Neurological Medical History: Reports: Hx Migraine Endocrine Medical History: Reports: Hx Diabetes Mellitus Type 2 - Borderline, diet controlled Renal/ Medical History: Denies: Hx Peritoneal Dialysis Past Surgical History: Reports: Hx Abdominal Surgery - 4 ft of intestines removed, colostomy and revised, Hx Appendectomy, Hx Cholecystectomy, Hx Hysterectomy Course - Laboratory Result Diagrams: 01/12/19 18:06 01/12/19 18:06 Laboratory results interpreted by me: 01/12/19 18:06 Sodium 126.8 L Chloride 90 L BUN 4 L Calcium 11.0 H Alkaline Phosphatase 136 H Doctor's Discharge - Discharge Referrals: CHRISTIANO RENE PA-C [Primary Care Provider] - Follow up as needed
[2019-01-12 16:48] LABS: APPEARANCE,URINE CLEAR; BILIRUBIN,URINE NEGATIVE (NEGATIVE); COLOR,URINE STRAW; GLUCOSE, URINE NEGATIVE (NEGATIVE); KETONES,URINE NEGATIVE (NEGATIVE); LEUKOCYTE ESTERASE,URINE NEGATIVE (NEGATIVE); NITRITE,URINE NEGATIVE (NEGATIVE); PROTEIN,URINE NEGATIVE (NEGATIVE); URINE SPECIFIC GRAVITY 1.003; UROBILINOGEN,URINE NEGATIVE mg/dL (<2.0)
--- NOTE | 2019-01-12 17:09 | RADIOLOGY REPORT (SQ) ---
EXAM DESCRIPTION: CT CERVICAL SPINE WITHOUT COMPLETED DATE/TIME: 01/12/2019 4:57 pm REASON FOR STUDY: fall COMPARISON: None. TECHNIQUE: Axial images acquired through the cervical spine without intravenous contrast. Images re viewed with lung, soft tissue and bone windows. Reconstructed coronal and sagittal MPR images review ed. Images stored on PACS. All CT scanners at this facility use dose modulation, iterative reconstruction, and/or weight based d osing when appropriate to reduce radiation dose to as low as reasonably achievable (ALARA). [facility]: Dose Right [facility]: CareDose [facility]: Dose Right [facility]: Teradose 4D [facility]: [employer] RADIATION DOSE: CT Rad equipment meets quality standard of care and radiation dose reduction techniq ues were employed. CTDIvol: 21.9 mGy. DLP: 421 mGy-cm. mGy. LIMITATIONS: None. FINDINGS: ALIGNMENT: Anatomic. MINERALIZATION: Normal. VERTEBRAL BODIES: No fractures or dislocation. DISCS: Multilevel disc space narrowing with osteophytes. FACETS, LATERAL MASSES, POSTERIOR ELEMENTS: Facet arthropathy. No fractures. No dislocation. No ac iza findings. HARDWARE: None in the spine. VISUALIZED RIBS: No fractures. LUNG APICES AND SOFT TISSUES: No significant or acute findings. OTHER: No other significant finding. IMPRESSION: CHRONIC DEGENERATIVE CHANGES. NO ACUTE FINDINGS. TECHNICAL DOCUMENTATION: JOB ID: [id number] Quality ID # [id number]: Final reports with documentation of one or more dose reduction techniques (e.g., Au tomated exposure control, adjustment of the mA and/or kV according to patient size, use of iterative reconstruction technique) 2010 [employer]- All Rights Reserved Reading location - IP/workstation name: [email or web address]
--- NOTE | 2019-01-12 17:10 | RADIOLOGY REPORT (SQ) ---
EXAM DESCRIPTION: CT HEAD WITHOUT COMPLETED DATE/TIME: 01/12/2019 4:57 pm REASON FOR STUDY: fall head injury COMPARISON: 01/11/2019. TECHNIQUE: Axial images acquired through the brain without intravenous contrast. Images reviewed wi th bone, brain and subdural windows. Additional sagittal and coronal reconstructions were generated. Images stored on PACS. All CT scanners at this facility use dose modulation, iterative reconstruction, and/or weight based d osing when appropriate to reduce radiation dose to as low as reasonably achievable (ALARA). [facility]: Dose Right [facility]: CareDose [facility]: Dose Right [facility]: Teradose 4D [facility]: [employer] RADIATION DOSE: CT Rad equipment meets quality standard of care and radiation dose reduction techniq ues were employed. CTDIvol: 53.2 mGy. DLP: 1124 mGy-cm.mGy. LIMITATIONS: None. FINDINGS: VENTRICLES: Prominent. CEREBRUM: No masses. No hemorrhage. No midline shift. Areas of low density in the white matter mos t likely due to chronic micro-vascular ischemic change. No evidence for acute infarction. CEREBELLUM: No masses. No hemorrhage. No alteration of density. No evidence for acute infarction. EXTRAAXIAL SPACES: Age-related involutional change. No fluid collections. No masses. ORBITS AND GLOBE: No intra- or extraconal masses. Normal contour of globe without masses. CALVARIUM: No fracture. PARANASAL SINUSES: No fluid or mucosal thickening. SOFT TISSUES: No mass or hematoma. OTHER: No other significant finding. IMPRESSION: CHRONIC CHANGES OF ATROPHY AND MICROVASCULAR ISCHEMIA. NO ACUTE PROCESS. EVIDENCE OF ACUTE STROKE: NO. TECHNICAL DOCUMENTATION: JOB ID: [id number] Quality ID # [id number]: Final reports with documentation of one or more dose reduction techniques (e.g., Au tomated exposure control, adjustment of the mA and/or kV according to patient size, use of iterative reconstruction technique) 2010 [employer]- All Rights Reserved Reading location - IP/workstation name: [email or web address]
[2019-01-12 18:44] LABS: ABSOLUTE LYMPHOCYTES (AUTO) 1.4 10^3/uL (0.5-4.7); ABSOLUTE MONOCYTES (AUTO) 0.3 10^3/uL (0.1-1.4); ABSOLUTE NEUT (AUTO) 5.9 10^3/uL (1.7-8.2); BASOPHILS % (AUTO) 0.3 % (0-2); EOSINOPHILS % (AUTO) 0.2 % (0-6); HEMATOCRIT 39.6 % (36.0-47.0); HEMOGLOBIN 13.6 g/dL (12.0-15.5); LYMPHOCYTES % (AUTO) 18.7 % (13-45); MEAN CORPUSCULAR HEMOGLOBIN 31.5 pg (27.0-33.4); MEAN CORPUSCULAR HGB CONC 34.3 g/dL (32.0-36.0); MEAN CORPUSCULAR VOLUME 92 fl (80-97); MONOCYTES % (AUTO) 4.5 % (3-13); PLATELET COUNT 329 10^3/uL (150-450); RED BLOOD COUNT 4.31 10^6/uL (3.72-5.28); RED CELL DISTRIBUTION WIDTH 13.2 % (11.5-14.0); SEGMENTED NEUTROPHILS % (AUTO) 76.3 % (42-78); TOTAL CELLS COUNTED % (AUTO) 100 %; WHITE BLOOD COUNT 7.7 10^3/uL (4.0-10.5)
[2019-01-12 19:05] LABS: ALBUMIN 4.9 g/dL (3.5-5.0); ALKALINE PHOSPHATASE 136 U/L (38-126); ANION GAP 15 (5-19); ASPARTATE AMINO TRANSFERASE 29 U/L (14-36); BILIRUBIN,DIRECT 0.2 mg/dL (0.0-0.4); BILIRUBIN,TOTAL 0.4 mg/dL (0.2-1.3); BLOOD UREA NITROGEN 4 mg/dL (7-20); CARBON DIOXIDE 22 mmol/L (22-30); CHLORIDE 90 mmol/L (98-107); GLUCOSE 107 mg/dL (75-110); POTASSIUM 4.2 mmol/L (3.6-5.0); TOTAL PROTEIN 8.1 g/dL (6.3-8.2)
[2019-01-12 19:55] LABS: INTERNATIONAL RATION (INR) 0.97; PARTIAL THROMBOPLASTIN TIME 30.1 SEC (23.5-35.8); PROTHROMBIN TIME 12.9 SEC (11.4-15.4)
[2019-01-12] MEDS ORDERED: NORMAL SALINE 250 ML IV ONE (20:32)
[2019-01-12] MEDS ORDERED: METOCLOPRAMIDE HCL INJ/PF 10 MG/2 ML SDV IV ONE (20:33)
[2019-01-12] MEDS ORDERED: ACETAMINOPHEN 325 MG TABLET PO ONE (20:33)
--- NOTE | 2019-01-12 20:35 | ER Document Report ---
ED Fall - General Chief Complaint: Fall Stated Complaint: FELL Time Seen by Provider: 01/12/19 15:55 Mode of Arrival: Medic Information source: Patient Notes: Patient is a 68-year-old female that comes emergency department for chief complaint of a fall. She states she is walking with her walker when she fell backwards and hit her head on the wood vinyl floor. She states she has a headache but she did not get knocked out, she did not vomit, she did not have incontinence, focal numbness or weakness, and she denies any complaints other than pain at the back of her head and a headache. She is on multiple blood thinners including reportedly aspirin, Plavix, and Lovenox. She has a history of atrial fibrillation, CVA, and MS, followed with neurology in [place] but does not have a local neurologist, she does have a local primary care and lives with her daughter. TRAVEL OUTSIDE OF THE [place] IN LAST 30 DAYS: No - Related data Allergies/Adverse Reactions: No Known Allergies Allergy (Verified 01/12/19 15:59) Past Medical History - General Information source: Patient - Social History Smoking Status: Never Smoker Frequency of alcohol use: None Drug Abuse: None Lives with: Family Family History: Reviewed & Not Pertinent, Other Patient has suicidal ideation: No Patient has homicidal ideation: No - Past Medical History Cardiac Medical History: Reports: Hx Hypercholesterolemia, Hx Hypertension Pulmonary Medical History: Reports: Hx COPD Neurological Medical History: Reports: Hx Migraine Endocrine Medical History: Reports: Hx Diabetes Mellitus Type 2 - Borderline, diet controlled Renal/ Medical History: Denies: Hx Peritoneal Dialysis Past Surgical History: Reports: Hx Abdominal Surgery - 4 ft of intestines removed, colostomy and revised, Hx Appendectomy, Hx Cholecystectomy, Hx Hysterec ofelia Review of Systems - Review of Systems Constitutional: See HPI EENT: No symptoms reported Cardiovascular: See HPI Respiratory: No symptoms reported Gastrointestinal: No symptoms reported Genitourinary: No symptoms reported Female Genitourinary: No symptoms reported Musculoskeletal: See HPI Skin: No symptoms reported Hematologic/Lymphatic: No symptoms reported Neurological/Psychological: See HPI Physical Exam - Vital signs Vitals: Pulse Ox 98 01/12/19 20:35 - Notes Notes: GENERAL: Patient is awake and alert, she is cooperative. She does not appear to be in distress. HEAD: Normocephalic, mild tenderness over the posterior scalp but no wounds or swelling noted. EYES: Pupils equal, round, and reactive to light. Extraocular movements intact. ENT: Oral mucosa moist, tongue midline. Oropharynx unremarkable. Airway patent. Nares patent, no nasal septal hematoma, TM's intact. NECK: Full range of motion. Supple. Trachea midline. LUNGS: Clear to auscultation bilaterally, no wheezes, rales, or rhonchi. No respiratory distress. HEART: Regular rate and rhythm. No murmur ABDOMEN: Soft, non-tender. Non-distended. Bowel sounds present in all 4 quadrants. GENITOURINARY: Deferred EXTREMITIES: Moves all 4 extremities spontaneously. No edema, normal radial and dorsalis pedis pulses bilaterally. No cyanosis. BACK: no cervical, thoracic, lumbar midline tenderness. No saddle anesthesia, normal distal neurovascular exam. Moves all extremities in full range of motion. NEUROLOGICAL: Patient very slow with responding with speech, she is alert and she is oriented to person and place but not completely to events. Cranial nerves II through XII grossly intact. PSYCH: Normal affect, normal mood. SKIN: Warm, dry, normal turgor. No rashes or lesions noted. Course - Re-evaluation Re-evalutation: On review of previous records patient was seen here on 01/09 and had an MRI of the brain for headaches and placed on Fioricet. She was seen yesterday for shaking, also had a VQ scan at that time which was unremarkable. Notes report the patient also has history of pulmonary embolism and also clot in the brain and these are the reasons for her anticoagulation. CBC unremarkable. Chemistry does show slowly downtrending hyponatremia over the past few days. Previous sodium levels last year were normal at 140. Today sodium is 126. 01/12/19 21:39 Patient is sluggish on my evaluation, she takes a very long time to relate any history. She cannot remember the fall. She states she thinks she did not pass out. We did have her daughter come to the bedside from home, daughter states that patient has been confused and sluggish all day, she states that she passed out and hit her head prior to arrival, she states that she has not been acting right with intermittent shaking episodes and confusion beyond her normal mental baseline for the past couple of days and they have come to the emergency department twice for evaluation. Daughter states that patient was notably worse today. She states that patient is constantly urinating as well. CAT scan of the head negative for acute findings. Discussed with Dr. Montes. Because of patient's syncopal episode without obvious vasovagal symptoms, confusion and behavior below baseline with suspected encephalopathy component, hyponatremia, he recommends admission. Patient and daughter are very agreeable with this plan. Discussed with Dr. Morrison, patient admitted to the hospital. - Vital Signs Vital signs: Temp Pulse Resp BP Pulse Ox 83 14 160/72 H 100 01/12/19 20:37 01/13/19 07:11 01/13/19 06:14 01/13/19 07:11 - Laboratory Result Diagrams: 01/12/19 18:06 01/12/19 18:06 Laboratory results interpreted by me: 01/12/19 01/12/19 18:06 18:06 Sodium 126.8 L Chloride 90 L BUN 4 L Calcium 11.0 H Alkaline Phosphatase 136 H Creatine Kinase 138 H - EKG Interpretation by Me Additional EKG results interpreted by me: EKG shows sinus rhythm at a rate of 76, QTC of 432, no T wave inversions or ST segment changes in consecutive leads. Discharge - Discharge Clinical Impression: Nausea, Hyponatremia, Confusion Fall Qualifiers: Encounter type: initial encounter Qualified Code(s): W19.XXXA - Unspecified fall, initial encounter Head injury Qualifiers: Encounter type: initial encounter Qualified Code(s): S09.90XA - Unspecified injury of head, initial encounter Headache Qualifiers: Headache type: unspecified Headache chronicity pattern: acute headache Intractability: not intractable Qualified Code(s): R51 - Headache Episode of syncope Qualifiers: Syncope type: unspecified Qualified Code(s): R55 - Syncope and collapse Condition: Stable Disposition: ADMITTED INPATIENT Admitting Provider: Prince (Hospitalist) Unit Admitted: Telemetry
[2019-01-12] MEDS ORDERED: ONDANSETRON ODT 4 MG TAB (6 TAB/ER DISP) PO PRN (21:04)
--- NOTE | 2019-01-12 23:13 | RADIOLOGY REPORT (SQ) ---
EXAM DESCRIPTION: XR CHEST 1 VIEW COMPLETED DATE/TME: 01/12/2019 22:08 CLINICAL HISTORY: 68 years, Female, weakness, AMS COMPARISON: X-ray chest 01/09/2019 NUMBER OF VIEWS: TECHNIQUE: LIMITATIONS: None. FINDINGS: No evidence of pulmonary infiltrate or pleural effusion. The heart and mediastinum are unremarkable. Pulmonary vascularity appears normal. There is atherosclerotic calcification of the aortic arch. IMPRESSION: No acute finding. copyright 2010 [employer]- All Rights Reserved
[2019-01-13] MEDS ORDERED: ACETAMINOPHEN 325 MG TABLET PO PRN (00:09)
[2019-01-13] MEDS ORDERED: IPRATROPIUM/ALBUTEROL 0.5-2.5 MG/3 ML AMPUL NEB PRN (00:09)
[2019-01-13] MEDS ORDERED: MAG HYDROX/AL HYDROX/SIMETH SUSP 30 ML UDCUP PO PRN (00:09)
[2019-01-13] MEDS: NORMAL SALINE 1000 ML 1,000 ML IV PRN ×3 (05:20→17:12)
[2019-01-13] MEDS ORDERED: ONDANSETRON 4 MG TAB.RAPDIS PO PRN (05:22)
--- NOTE | 2019-01-13 06:07 | PDOC H&P ---
History of Present Illness Admission Date/PCP: 01/13/19 00:23 CHRISTIANO RENE PA-C Patient complains of: Fall History of Present Illness: GRECIA COBOS is a 68 year old female with a past medical history of atrial fibrillation, pulmonary emboli on Lovenox, multiple sclerosis and chronic pain. She presents after a fall without the use of her walker. She had a witnessed fall backward and struck the back of her head to a wood floor. She did not lose consciousness or have seizure-like activity. No blurred vision, chest pain, shortness of breath, nausea vomiting or incontinence. In the emergency room her work-up reveals hyponatremia and a negative MRI brain but has headache. She has some confusion and referred to the hospitalist for postconcussive symptoms. Review of the patient's medications which were recently refilled are concerning for polypharmacy including baclofen carbamazepine Lyrica topiramate and Effexor. Past Medical History Cardiac Medical History: Reports: Hyperlipidema, Hypertension Pulmonary Medical History: Reports: Chronic Obstructive Pulmonary Disease (COPD) Neurological Medical History: Reports: Migraine Endocrine Medical History: Reports: Diabetes Mellitus Type 2 - Borderline, diet controlled Past Surgical History Past Surgical History: Reports: Appendectomy, Cholecystectomy, Hysterectomy Social History Information Source: Patient Lives with: Family Smoking Status: Unknown if Ever Smoked Frequency of Alcohol Use: Rare - Advance Directive Resuscitation Status: Full Code Family History Family History: COPD, Hypertension Parental Family History Reviewed: Yes Children Family History Reviewed: Yes Sibling(s) Family History Reviewed.: Yes Medication/Allergy Home Medications: Albuterol Sulfate [Proair Hfa Inhalation Aerosol 8.5 gm Mdi] 1 puff IH Q4 PRN 03/24/18 Aspirin [Aspirin 325 mg Tablet] 325 mg PO DAILY 03/24/18 Atorvastatin Calcium [Lipitor 10 mg Tablet] 10 mg PO QHS 03/24/18 Baclofen [Baclofen 20 Mg Tablet] 20 mg PO TID 03/24/18 Butalb/Acetaminophen/Caffeine [Fioricet 50-300-40 mg Capsule] 1 cap PO Q4 PRN #30 cap 03/24/18 Carbamazepine [Tegretol] 200 mg PO BID 03/24/18 Clopidogrel Bisulfate [Plavix 75 mg Tablet] 75 mg PO DAILY 03/24/18 Fingolimod HCl [Gilenya] 0.5 mg PO DAILY 03/24/18 Fluticasone/Salmeterol [Advair 500-50 Diskus 14 Dose/Diskus] 1 inh IH Q12H 03/24/18 Gabapentin [Neurontin 300 mg Capsule] 300 mg PO Q8 03/24/18 Hydrocodone/Acetaminophen [[place] 5-325 mg Tablet] 2 tab PO Q8 PRN #12 tab 03/24/18 Losartan Potassium [Cozaar] 25 mg PO DAILY 03/24/18 Omeprazole 20 mg PO DAILY 03/24/18 Ondansetron [Zofran Odt 4 mg Tablet] 1 - 2 tab PO Q4HP PRN 03/24/18 Pregabalin [Lyrica] 200 mg PO BID 03/24/18 Topiramate [Trokendi Xr] 25 mg PO DAILY 03/24/18 Venlafaxine HCl [Venlafaxine HCl ER] 150 mg PO DAILY 03/24/18 Butalb/Acetaminophen/Caffeine [Fioricet 50-300-40 mg Capsule] 1 cap PO Q4 PRN #20 cap 01/09/19 Allergies/Adverse Reactions: No Known Allergies Allergy (Verified 01/12/19 15:59) Review of Systems Constitutional: ABSENT: chills, fever(s), headache(s), weight gain, weight loss Eyes: ABSENT: visual disturbances Ears: ABSENT: hearing changes Cardiovascular: ABSENT: chest pain, dyspnea on exertion, edema, orthropnea, palpitations Respiratory: ABSENT: cough, hemoptysis Gastrointestinal: ABSENT: abdominal pain, constipation, diarrhea, hematemesis, hematochezia, nausea, vomiting Genitourinary: ABSENT: dysuria, hematuria Musculoskeletal: ABSENT: joint swelling Integumentary: ABSENT: rash, wounds Neurological: ABSENT: abnormal gait, abnormal speech, confusion, dizziness, focal weakness, syncope Psychiatric: ABSENT: anxiety, depression, homidical ideation, suicidal ideation Endocrine: ABSENT: cold intolerance, heat intolerance, polydipsia, polyuria Hematologic/Lymphatic: ABSENT: easy bleeding, easy bruising Physical Exam Vital Signs: Temp Pulse Resp BP Pulse Ox 83 17 144/72 H 100 01/12/19 20:37 01/13/19 05:21 01/13/19 05:21 01/13/19 05:21 Intake & Output 01/11/19 01/12/19 01/13/19 11:59 11:59 11:59 Intake Total 250 Balance 250 Weight 81.647 kg General appearance: PRESENT: no acute distress, cooperative, well-developed, well-nourished Head exam: PRESENT: atraumatic, normocephalic Eye exam: PRESENT: conjunctiva pink, EOMI, PERRLA. ABSENT: scleral icterus Ear exam: PRESENT: normal external ear exam Mouth exam: PRESENT: moist, tongue midline. ABSENT: dry mucosa Neck exam: ABSENT: carotid bruit, JVD, lymphadenopathy, thyromegaly Respiratory exam: PRESENT: clear to auscultation baljinder. ABSENT: rales, rhonchi, wheezes Cardiovascular exam: PRESENT: RRR. ABSENT: diastolic murmur, rubs, systolic murmur Pulses: PRESENT: normal dorsalis pedis pul Vascular exam: PRESENT: normal capillary refill GI/Abdominal exam: PRESENT: normal bowel sounds, soft. ABSENT: distended, guarding, mass, organolmegaly, rebound, tenderness Rectal exam: PRESENT: deferred Extremities exam: PRESENT: full ROM. ABSENT: calf tenderness, clubbing, pedal edema Neurological exam: PRESENT: alert, awake, oriented to person, oriented to place, oriented to time, oriented to situation, CN II-XII grossly intact. ABSENT: motor sensory deficit Psychiatric exam: PRESENT: appropriate affect, normal mood. ABSENT: homicidal ideation, suicidal ideation Skin exam: PRESENT: dry, intact, warm. ABSENT: cyanosis, rash Results Laboratory Results: 01/12/19 18:06 01/12/19 18:06 01/12/19 01/12/19 01/12/19 16:40 18:06 18:06 WBC 7.7 RBC 4.31 Hgb 13.6 Hct 39.6 MCV 92 MCH 31.5 MCHC 34.3 RDW 13.2 Plt Count 329 Seg Neutrophils % 76.3 Sodium 126.8 L Potassium 4.2 Chloride 90 L Carbon Dioxide 22 Anion Gap 15 BUN 4 L Creatinine 0.52 Est GFR ( Amer) > 60 Glucose 107 Calcium 11.0 H Phosphorus Magnesium Total Bilirubin 0.4 AST 29 Alkaline Phosphatase 136 H C-Reactive Protein Total Protein 8.1 Albumin 4.9 TSH Urine Color STRAW Urine Appearance CLEAR Urine pH 7.0 Ur Specific Dwight 1.003 Urine Protein NEGATIVE Urine Glucose (UA) NEGATIVE Urine Ketones NEGATIVE Urine Blood NEGATIVE Urine Nitrite NEGATIVE Ur Leukocyte Esterase NEGATIVE Urine WBC (Auto) 2 Urine RBC (Auto) 1 01/12/19 01/12/19 01/12/19 18:06 18:06 18:06 WBC RBC Hgb Hct MCV MCH MCHC RDW Plt Count Seg Neutrophils % Sodium Potassium Chloride Carbon Dioxide Anion Gap BUN Creatinine Est GFR ( Amer) Glucose Calcium Phosphorus 4.0 Magnesium 2.0 Total Bilirubin AST Alkaline Phosphatase C-Reactive Protein < 5.0 Total Protein Albumin TSH 1.62 Urine Color Urine Appearance Urine pH Ur Specific Dwight Urine Protein Urine Glucose (UA) Urine Ketones Urine Blood Urine Nitrite Ur Leukocyte Esterase Urine WBC (Auto) Urine RBC (Auto) 01/12/19 01/12/19 18:06 22:55 Creatine Kinase 138 H Troponin I < 0.012 Impressions: Head CT 01/12/19 15:55 IMPRESSION: CHRONIC CHANGES OF ATROPHY AND MICROVASCULAR ISCHEMIA. NO ACUTE PROCESS. EVIDENCE OF ACUTE STROKE: NO. Cervical Spine CT 01/12/19 16:16 IMPRESSION: CHRONIC DEGENERATIVE CHANGES. NO ACUTE FINDINGS. Chest X-Ray 01/12/19 22:08 IMPRESSION: No acute finding. copyright 2011 [employer]- All Rights Reserved Assessment and Plan - Diagnosis (1) Fall Qualifiers: Encounter type: initial encounter Qualified Code(s): W19.XXXA - Unspecified fall, initial encounter Is this a current diagnosis for this admission?: Yes Plan: Multifactorial secondary to multiple sclerosis and underlying gait disorder patient ambulating without walker and likely polypharmacy. Orthostatic blood pressures, telemetry monitoring, therapy evaluation ordered. (2) Concussion Is this a current diagnosis for this admission?: Yes Plan: Awake and alert, supportive measures (3) Polypharmacy Is this a current diagnosis for this admission?: Yes Plan: Follow-up medication reconciliation consider discontinuation of Lyrica and reduced doses of baclofen, topiramate. Reduce carbamazepine for hyper natremia (4) Confusion Is this a current diagnosis for this admission?: Yes Plan: Likely polypharmacy versus postconcussion. Hold Lyrica (5) Hyponatremia Is this a current diagnosis for this admission?: Yes Plan: Reduce carbamazepine, follow-up chemistry (6) Multiple sclerosis Is this a current diagnosis for this admission?: Yes Plan: Patiently recently discontinued therapy. Follow-up outpatient neurology. - Time Time Spent with patient: 25-34 minutes - Inpatient Certification Medical Necessity: Need Close Monitoring Due to Risk of Patient Decompensation
[2019-01-13 06:30] LABS: CREATINE KINASE MB 1.65 ng/mL (<4.55)
[2019-01-13 06:36] LABS: TROPONIN I < 0.012 ng/mL
[2019-01-13 08:52] LABS: URINE AMPHETAMINES SCREEN NEGATIVE; URINE BARBITURATES SCREEN NEGATIVE; URINE BENZODIAZEPINES SCREEN NEGATIVE; URINE COCAINE SCREEN NEGATIVE; URINE MARIJUANA (THC) SCREEN NEGATIVE; URINE METHADONE SCREEN NEGATIVE; URINE PHENCYCLIDINE SCREEN NEGATIVE
--- NOTE | 2019-01-13 09:14 | EKG REPORT ---
SEVERITY:- ABNORMAL ECG - SINUS RHYTHM PROBABLE LEFT ATRIAL ABNORMALITY LEFT VENTRICULAR HYPERTROPHY : Confirmed by: Contreras Mcintosh 13-Jan-2019 09:13:31
[2019-01-13 13:23] LABS: CREATINE KINASE MB 1.35 ng/mL (<4.55)
[2019-01-13 13:25] LABS: TROPONIN I < 0.012 ng/mL
[2019-01-13] MEDS ORDERED: MAGNESIUM HYDROXIDE SUSP 30 ML UDCUP PO PRN (15:12)
[2019-01-13] MEDS ORDERED: BACLOFEN 20 MG TABLET PO PRN (16:01)
[2019-01-13] MEDS: DOCUSATE SODIUM 100 MG CAPSULE PO SCH (17:10)
[2019-01-13] MEDS: CARBAMAZEPINE 200 MG TABLET PO SCH (19:37)
[2019-01-13] MEDS: TOPIRAMATE 25 MG TABLET PO SCH (21:15)
[2019-01-13] MEDS: ENOXAPARIN SODIUM INJ 100 MG/1 ML DISP.SYRIN SUBCUT SCH (21:20)
[2019-01-13] MEDS ORDERED: (PENDING PHARMACY ID) (Enoxaparin Sodium 100 MG) SUBCUT SCH (22:00)
[2019-01-14 04:50] LABS: ABSOLUTE LYMPHOCYTES (AUTO) 1.8 10^3/uL (0.5-4.7); ABSOLUTE MONOCYTES (AUTO) 0.5 10^3/uL (0.1-1.4); ABSOLUTE NEUT (AUTO) 5.7 10^3/uL (1.7-8.2); BASOPHILS % (AUTO) 0.5 % (0-2); EOSINOPHILS % (AUTO) 0.5 % (0-6); HEMATOCRIT 38.7 % (36.0-47.0); HEMOGLOBIN 13.2 g/dL (12.0-15.5); LYMPHOCYTES % (AUTO) 22.5 % (13-45); MEAN CORPUSCULAR HEMOGLOBIN 31.3 pg (27.0-33.4); MEAN CORPUSCULAR VOLUME 92 fl (80-97); MONOCYTES % (AUTO) 5.8 % (3-13); PLATELET COUNT 323 10^3/uL (150-450); RED CELL DISTRIBUTION WIDTH 13.3 % (11.5-14.0); SEGMENTED NEUTROPHILS % (AUTO) 70.7 % (42-78); TOTAL CELLS COUNTED % (AUTO) 100 %
[2019-01-14 05:03] LABS: ANION GAP 8 (5-19); BLOOD UREA NITROGEN 7 mg/dL (7-20); CALCIUM 10.1 mg/dL (8.4-10.2); CARBON DIOXIDE 27 mmol/L (22-30); CHLORIDE 104 mmol/L (98-107); GLUCOSE 114 mg/dL (75-110); POTASSIUM 3.9 mmol/L (3.6-5.0)
[2019-01-14] MEDS ORDERED: LEVOTHYROXINE SODIUM 0.05 MG TABLET PO SCH (06:00)
[2019-01-14] MEDS: ENOXAPARIN SODIUM INJ 100 MG/1 ML DISP.SYRIN SUBCUT SCH (09:17)
[2019-01-14] MEDS: DOCUSATE SODIUM 100 MG CAPSULE PO SCH (09:18)
[2019-01-14] MEDS: TOPIRAMATE 25 MG TABLET PO SCH (09:18)
[2019-01-14] MEDS: CARBAMAZEPINE 200 MG TABLET PO SCH (09:28)
[2019-01-14] MEDS ORDERED: FLUTICASONE/VILANTEROL 200-25 MCG/DOSE IH SCH (10:00)
[2019-01-14] MEDS ORDERED: ASPIRIN 325 MG TABLET PO SCH (10:00)
[2019-01-14] MEDS ORDERED: LOSARTAN POTASSIUM 25 MG TABLET PO SCH ×2 (10:00)
[2019-01-14] MEDS ORDERED: VENLAFAXINE HCL 75 MG CAP.SR.24H PO SCH (10:00)
[2019-01-14] MEDS ORDERED: NICOTINE 14 MG/24 HR PATCH.TD24 TD SCH (10:00)
[2019-01-14] MEDS ORDERED: CLOPIDOGREL BISULFATE 75 MG TABLET PO SCH (10:00)
[2019-01-14 11:53] VITALS: BP 141/57
--- NOTE | 2019-01-20 10:06 | PDOC DISCHARGE SUMMARY ---
Impression - Admit/DC Date/PCP Admission Date/Primary Care Provider: 01/13/19 00:23 CHRISTIANO RENE PA-C Discharge Date: 01/14/19 - Discharge Diagnosis (1) Fall Is this a current diagnosis for this admission?: Yes (2) Concussion Is this a current diagnosis for this admission?: Yes (3) Polypharmacy Is this a current diagnosis for this admission?: Yes (4) Confusion Is this a current diagnosis for this admission?: Yes (5) Hyponatremia Is this a current diagnosis for this admission?: Yes (6) Multiple sclerosis Is this a current diagnosis for this admission?: Yes (7) Hx pulmonary embolism Is this a current diagnosis for this admission?: Yes - Additional Information Resuscitation Status: Full Code Discharge Diet: As Tolerated, Regular Discharge Activity: Activity As Tolerated Referrals: [facility] [Outside] [facility] [Outside] CHRISTIANO RENE PA-C [Primary Care Provider] - 01/24/19 9:45 am (THE OFFICE DOES NOT HAVE ANOTHER APPOINTMENT UNTIL FEBRUARY 03, PLEASE KEEP YOUR PREVIOUS APPOINTMENT LISTED BELOW) Prescriptions: Losartan Potassium [Cozaar 25 mg Tablet] 50 mg PO DAILY 30 Days #30 tab Home Medications: Albuterol Sulfate [Proair HFA Inhalation Aerosol 8.5 gm MDI] 1 puff IH QIDP PRN 01/13/19 Aspirin [Aspirin 325 mg Tablet] 325 mg PO DAILY 01/13/19 Baclofen [Baclofen 20 mg Tablet] 20 mg PO TIDP PRN 01/13/19 Bismuth Subsalicylate [Pepto-Bismol 262 Chewable Tablet] 262 mg PO QIDP PRN 01/13/19 Budesonide/Formoterol Fumarate [Symbicort HFA 160-4.5 mcg Inhaler 6 gm] 2 puff IH Q12 01/13/19 Carbamazepine [Tegretol 200 mg Tablet] 200 mg PO BID 01/13/19 Clopidogrel Bisulfate [Plavix 75 mg Tablet] 75 mg PO DAILY 01/13/19 Enoxaparin Sodium [Lovenox Inj 100 mg/1 ml Disp.syrin] 100 mg SUBCUT Q12 01/13/19 Guaifenesin [Mucinex] 600 mg PO Q12HP PRN 01/13/19 Levothyroxine Sodium [Synthroid 0.05 mg Tablet] 50 mcg PO Q6AM 01/13/19 Lidocaine [Lidoderm 5% (700 mg) Transdermal Patch] 1 patch TP DAILYP PRN 01/13/19 Nicotine [Nicoderm 14 mg/24 Hr Transdermal Patch] 1 patch TD DAILY 01/13/19 Ondansetron [Zofran Odt 4 mg Tablet] 4 mg PO Q8HP PRN 01/13/19 Pregabalin [Lyrica] 150 mg PO Q8 01/13/19 Topiramate [Topamax 25 mg Tablet] 25 mg PO Q12 01/13/19 Venlafaxine HCl ER [Effexor Xr 75 mg Cap.sr] 225 mg PO DAILY 01/13/19 Losartan Potassium [Cozaar 25 mg Tablet] 50 mg PO DAILY 30 Days #30 tab 01/14/19 History of Present Illiness History of Present Illness: GRECIA COBOS is a 68 year old female with a past medical history of atrial fibrillation, pulmonary emboli on Lovenox, multiple sclerosis and chronic pain. She presents after a fall without the use of her walker. She had a witnessed fall backward and struck the back of her head to a wood floor. She did not lose consciousness or have seizure-like activity. No blurred vision, chest pain, shortness of breath, nausea vomiting or incontinence. In the emergency room her work-up reveals hyponatremia and a negative MRI brain but has headache. She has some confusion and referred to the hospitalist for postconcussive symptoms. Review of the patient's medications which were recently refilled are concerning for polypharmacy including baclofen carbamazepine Lyrica topiramate and Effexor. Hospital Course Hospital Course: (1) Fall Multifactorial secondary to multiple sclerosis and underlying gait disorder patient ambulating without walker and likely polypharmacy. Was admitted to [facility]. CT head and Neck negative. Advised on following up with PCP and neurology for reconciliation of her meds. (2) Concussion AO x 4, no focal neurological weakness. CT head, CT neck negative for any acute changes. (3) Polypharmacy Follow-up medication reconciliation consider discontinuation of Lyrica and reduced doses of baclofen, topiramate. An appointment was made for her to follow up with PCP. (4) Confusion Likely polypharmacy versus postconcussion. AOx4 at the time of discharge. (5) Hyponatremia Resolved. wnl at the time of discharge. Was started on fall and seizure p recautions. (6) Multiple sclerosis Patiently recently discontinued therapy. Not in acute exacerbation. Advised to follow up with PCP. (6) Multiple sclerosis Not in any acute flair. Follow up with PCP and neurologist. (7) History of pulmonary embolism. Pt is on LMWH theraputic dose and when asked about it she reports history of PE diagnosed recently at an side facility around 12/2018. V/Q scan 01/12/2019 negative. Patient was extensively counseled on risk of being on anticoagulant and having risk of falls. Pt voiced understanding. An appointment was made for her PCP to follow up for reevaluation of the need for anticoagulation. Physical Exam Vital Signs: Temp Pulse Resp BP Pulse Ox 98.2 F 75 16 141/57 H 98 01/14/19 11:51 01/14/19 11:54 01/14/19 11:54 01/14/19 11:51 01/14/19 11:54 General appearance: PRESENT: no acute distress, well-developed, well-nourished Head exam: PRESENT: atraumatic, normocephalic Neck exam: ABSENT: carotid bruit, JVD, lymphadenopathy, thyromegaly Respiratory exam: PRESENT: clear to auscultation baljinder. ABSENT: rales, rhonchi, wheezes Cardiovascular exam: PRESENT: RRR. ABSENT: diastolic murmur, rubs, systolic murmur GI/Abdominal exam: PRESENT: normal bowel sounds, soft. ABSENT: distended, guarding, mass, organolmegaly, rebound, tenderness Neurological exam: PRESENT: alert, awake, oriented to person, oriented to place, oriented to time, oriented to situation, CN II-XII grossly intact. ABSENT: motor sensory deficit Skin exam: PRESENT: dry, intact, warm. ABSENT: cyanosis, rash Results Laboratory Results: WBC 8.0 10^3/uL (4.0-10.5) 01/14/19 04:05 RBC 4.20 10^6/uL (3.72-5.28) 01/14/19 04:05 Hgb 13.2 g/dL (12.0-15.5) 01/14/19 04:05 Hct 38.7 % (36.0-47.0) 01/14/19 04:05 MCV 92 fl (80-97) 01/14/19 04:05 MCH 31.3 pg (27.0-33.4) 01/14/19 04:05 MCHC 34.0 g/dL (32.0-36.0) 01/14/19 04:05 RDW 13.3 % (11.5-14.0) 01/14/19 04:05 Plt Count 323 10^3/uL (150-450) 01/14/19 04:05 Lymph % (Auto) 22.5 % (13-45) 01/14/19 04:05 [place] % (Auto) 5.8 % (3-13) 01/14/19 04:05 Eos % (Auto) 0.5 % (0-6) 01/14/19 04:05 Baso % (Auto) 0.5 % (0-2) 01/14/19 04:05 Absolute Neuts (auto) 5.7 10^3/uL (1.7-8.2) 01/14/19 04:05 Absolute Lymphs (auto) 1.8 10^3/uL (0.5-4.7) 01/14/19 04:05 Absolute Monos (auto) 0.5 10^3/uL (0.1-1.4) 01/14/19 04:05 Absolute Eos (auto) 0.0 10^3/uL (0.0-0.6) 01/14/19 04:05 Absolute Basos (auto) 0.0 10^3/uL (0.0-0.2) 01/14/19 04:05 Seg Neutrophils % 70.7 % (42-78) 01/14/19 04:05 ESR 13 mm/hr (0-30) 01/12/19 18:06 PT 12.9 SEC (11.4-15.4) 01/12/19 19:38 INR 0.97 01/12/19 19:38 INR (Anticoag Therapy) Cancelled 01/12/19 18:06 APTT 30.1 SEC (23.5-35.8) 01/12/19 19:38 Sodium 138.9 mmol/L (137-145) 01/14/19 04:05 Potassium 3.9 mmol/L (3.6-5.0) 01/14/19 04:05 Chloride 104 mmol/L (98-107) 01/14/19 04:05 Carbon Dioxide 27 mmol/L (22-30) 01/14/19 04:05 Anion Gap 8 (5-19) 01/14/19 04:05 BUN 7 mg/dL (7-20) 01/14/19 04:05 Creatinine 0.57 mg/dL (0.52-1.25) 01/14/19 04:05 Est GFR ( Amer) > 60 (>60) 01/14/19 04:05 Est GFR (MDRD) Non-Af > 60 (>60) 01/14/19 04:05 Glucose 114 mg/dL (75-110) H 01/14/19 04:05 Calcium 10.1 mg/dL (8.4-10.2) 01/14/19 04:05 Phosphorus 4.0 mg/dL (2.5-4.5) 01/12/19 18:06 Magnesium 2.0 mg/dL (1.6-2.3) 01/12/19 18:06 Total Bilirubin 0.4 mg/dL (0.2-1.3) 01/12/19 18:06 Direct Bilirubin 0.2 mg/dL (0.0-0.4) 01/12/19 18:06 Neonat Total Bilirubin Not Reportable 01/12/19 18:06 Neonat Direct Bilirubin Not Reportable 01/12/19 18:06 Neonat Indirect Bili Not Reportable 01/12/19 18:06 AST 29 U/L (14-36) 01/12/19 18:06 ALT 30 U/L (<35) 01/12/19 18:06 Alkaline Phosphatase 136 U/L (38-126) H 01/12/19 18:06 Creatine Kinase 106 U/L (30-135) 01/13/19 12:22 CK-MB (CK-2) 1.35 ng/mL (<4.55) 01/13/19 12:22 Troponin I < 0.012 ng/mL 01/13/19 12:22 C-Reactive Protein < 5.0 mg/L (<10.0) 01/12/19 18:06 Total Protein 8.1 g/dL (6.3-8.2) 01/12/19 18:06 Albumin 4.9 g/dL (3.5-5.0) 01/12/19 18:06 TSH 1.62 uIU/mL (0.47-4.68) 01/12/19 18:06 Urine Color STRAW 01/12/19 16:40 Urine Appearance CLEAR 01/12/19 16:40 Urine pH 7.0 (5.0-9.0) 01/12/19 16:40 Ur Specific [place] 1.003 01/12/19 16:40 Urine Protein NEGATIVE mg/dL (NEGATIVE) 01/12/19 16:40 Urine Glucose (UA) NEGATIVE mg/dL (NEGATIVE) 01/12/19 16:40 Urine Ketones NEGATIVE mg/dL (NEGATIVE) 01/12/19 16:40 Urine Blood NEGATIVE (NEGATIVE) 01/12/19 16:40 Urine Nitrite NEGATIVE (NEGATIVE) 01/12/19 16:40 Urine Bilirubin NEGATIVE (NEGATIVE) 01/12/19 16:40 Urine Urobilinogen NEGATIVE mg/dL (<2.0) 01/12/19 16:40 Ur Leukocyte Esterase NEGATIVE (NEGATIVE) 01/12/19 16:40 Urine WBC (Auto) 2 /HPF 01/12/19 16:40 Urine RBC (Auto) 1 /HPF 01/12/19 16:40 Urine Bacteria (Auto) TRACE /HPF 01/12/19 16:40 Squamous Epi Cells Auto <1 /HPF 01/12/19 16:40 Urine Mucus (Auto) RARE /LPF 01/12/19 16:40 Urine Ascorbic Acid NEGATIVE (NEGATIVE) 01/12/19 16:40 Urine Opiates Screen NEGATIVE 01/12/19 16:40 Urine Methadone Screen NEGATIVE 01/12/19 16:40 Ur Barbiturates Screen NEGATIVE 01/12/19 16:40 Ur Phencyclidine Scrn NEGATIVE 01/12/19 16:40 Ur Amphetamines Screen NEGATIVE 01/12/19 16:40 U Benzodiazepines Scrn NEGATIVE 01/12/19 16:40 Urine Cocaine Screen NEGATIVE 01/12/19 16:40 U Marijuana (THC) Screen NEGATIVE 01/12/19 16:40 01/12/19 01/13/19 01/13/19 22:55 05:41 12:22 CK-MB (CK-2) 1.65 1.35 Troponin I < 0.012 < 0.012 < 0.012 Impressions: Head CT 01/12/19 15:55 IMPRESSION: CHRONIC CHANGES OF ATROPHY AND MICROVASCULAR ISCHEMIA. NO ACUTE PROCESS. EVIDENCE OF ACUTE STROKE: NO. Cervical Spine CT 01/12/19 16:16 IMPRESSION: CHRONIC DEGENERATIVE CHANGES. NO ACUTE FINDINGS. Chest X-Ray 01/12/19 22:08 IMPRESSION: No acute finding. copyright 2010 [employer]- All Rights Reserved Stroke Is this a Stroke Patient?: No Acute Heart Failure - Is this a Heart Failure Patient?: No
== END 2019-01-14 13:00 | disposition home health service (06) ==
LOC: ER 15:47 → EH 01-13 00:23 → 4S 01-13 11:22
PROVIDERS: ADMIT Internal Medicine; ATTEND Internal Medicine
DX: I48.91 Unspecified atrial fibrillation (principal); S06.0X9A Concussion with loss of consciousness of unspecified duration, initial encounter; Z79.899 Other long term (current) drug therapy; R41.0 Disorientation, unspecified; E87.1 Hypo-osmolality and hyponatremia; W19.XXXA Unspecified fall, initial encounter; G35 Multiple sclerosis; J44.9 Chronic obstructive pulmonary disease, unspecified; I10 Essential (primary) hypertension; E78.5 Hyperlipidemia, unspecified; G89.29 Other chronic pain; Z86.711 Personal history of pulmonary embolism; Z79.82 Long term (current) use of aspirin; Z79.01 Long term (current) use of anticoagulants; Z86.73 Personal history of transient ischemic attack (TIA), and cerebral infarction without residual deficits; Z93.3 Colostomy status; Z90.49 Acquired absence of other specified parts of digestive tract; Z86.718 Personal history of other venous thrombosis and embolism
CPT/HCPCS: 93005; 99285; 96372; 96374; 36415 ×3; 82553; 82550; 83735; 84100; 84443; 85025 ×2; 85652; 85610; 85730; 86140; 80048; 80053; 81001; 84484 ×2; 80307; 71045; 70450; 72125; 93010; 97116; 97161; G0378 ×3; A9270 ×13; J2765; J7030; J7050; J1650 ×2; J3490; S0119

== ENCOUNTER 2019-07-24 21:41 | Emergency (ER) | payer MEDICARE ==
--- NOTE | 2019-07-24 23:33 | ER Document Report ---
ED Neck/Back Problem - General Chief Complaint: Stiff Neck Stated Complaint: LEFT SIDED NECK PAIN Time Seen by Provider: 07/24/19 23:19 Primary Care Provider: CHRISTIANO RENE PA-C [Primary Care Provider] - Follow up as needed Notes: Patient is a 68-year-old female that comes emergency department for chief complaint of left-sided neck pain. She states that she was vacuuming the carpet and mopping the kitchen floor, she states that afterwards she was having pain and got into bed, she states today she is worse and she can barely even turn her head to the left or move her arms/shoulders without having sharp stabbing pain. She denies headache, vomiting, visual changes, focal numbness or weakness, chest pain, shortness of breath, incontinence. She denies fall injury or any trauma. She states she put a lidocaine patch on her neck and she is on baclofen and Lyrica for chronic pain, she states these do not seem to be helping. She came by EMS, she lives at home with her family. She denies any other complaints. TRAVEL OUTSIDE OF THE [place] IN LAST 30 DAYS: No - Related Data Allergies/Adverse Reactions: No Known Allergies Allergy (Verified 01/12/19 15:59) Past Medical History - General Information source: Patient - Social History Smoking Status: Current Every Day Smoker Frequency of alcohol use: None Drug Abuse: None Lives with: Family Family History: Reviewed & Not Pertinent, Other Patient has suicidal ideation: No Patient has homicidal ideation: No - Past Medical History Cardiac Medical History: Reports: Hx Hypercholesterolemia, Hx Hypertension Pulmonary Medical History: Reports: Hx COPD Neurological Medical History: Reports: Hx Migraine Endocrine Medical History: Reports: Hx Diabetes Mellitus Type 2 - Borderline, diet controlled Renal/ Medical History: Denies: Hx Peritoneal Dialysis Psychiatric Medical History: Reports: Hx Depression Past Surgical History: Reports: Hx Abdominal Surgery - 4 ft of intestines removed, colostomy and revised, Hx Appendectomy, Hx Cholecystectomy, Hx Hysterectomy - Immunizations Hx Diphtheria, Pertussis, Tetanus Vaccination: Yes Review of Systems - Review of Systems Constitutional: No symptoms reported EENT: No symptoms reported Cardiovascular: No symptoms reported Respiratory: No symptoms reported Gastrointestinal: No symptoms reported Genitourinary: No symptoms reported Female Genitourinary: No symptoms reported Musculoskeletal: See HPI Skin: No symptoms reported Hematologic/Lymphatic: No symptoms reported Neurological/Psychological: No symptoms reported Physical Exam - Vital signs Vitals: Temp Pulse Resp BP Pulse Ox 98.3 F 80 17 186/83 H 98 07/24/19 21:47 07/24/19 21:47 07/24/19 21:47 07/24/19 21:47 07/24/19 21:47 - Notes Notes: GENERAL: Alert, talkative, well-appearing unless she moves, then she appears to have pain in her left neck and shoulder. HEAD: Normocephalic, atraumatic. EYES: Pupils equal, round, and reactive to light. Extraocular movements intact. ENT: Oral mucosa moist, tongue midline. Oropharynx unremarkable. Airway patent. NECK: Hesitant with range of motion but still able to perform normal flexion and extension, no nuchal rigidity. Normal range of motion of the right, limited to the left laterally. Supple. Trachea midline. No lymphadenopathy. LUNGS: Clear to auscultation bilaterally, no wheezes, rales, or rhonchi. No respiratory distress. Non-tender chest wall. HEART: Regular rate and rhythm. No murmur ABDOMEN: Soft, non-tender. Non-distended. Bowel sounds present in all 4 quadrants. GENITOURINARY: Deferred EXTREMITIES: Moves all 4 extremities spontaneously. No edema, normal radial and dorsalis pedis pulses bilaterally. No cyanosis. BACK: There is tenderness along the left paracervical and left trapezius muscle with what appears to be a painful spasm. No cervical, thoracic, lumbar midline tenderness. No saddle anesthesia, normal distal neurovascular exam. Moves all extremities in full range of motion. No signs of trauma. NEUROLOGICAL: Alert and oriented x3. Normal speech. Cranial nerves II through XII grossly intact. Strength 5/5 in all extremities. PSYCH: Normal affect, normal mood. SKIN: Warm, dry, normal turgor. No rashes or lesions noted. Course - Re-evaluation Re-evalutation: Patient appears to have a painful muscle spasm in the left paracervical and trapezius muscles. Pain is only with movement, very palpable on exam, and she denies any other symptoms including headache, chest pain, numbness, fever. Vital signs unremarkable except for hypertension admission improved with symptom management. Patient has no neurological deficits, no reported symptoms suggesting this is intrathoracic. Because that is so specific without injury no imaging was performed after we discussed this. I discussed at length with patient different options, decision was made to stop her baclofen and provide her with some diazepam, she will also follow-up with her primary care/pain management tomorrow for additional management in regards to this. I did discussed expectations, recommendations, and return precautions at length. Patient states appreciation and agreement. Stable and well-appearing at time of discharge. - Vital Signs Vital signs: Temp Pulse Resp BP Pulse Ox 97.6 F 77 14 165/72 H 100 07/25/19 00:07/25/19 00:09 07/25/19 00:07/25/19 00:07/25/19 00:09 Discharge - Discharge Clinical Impression: Neck pain on left side, Upper back pain, Muscle strain, Muscle spasm Condition: Stable Disposition: HOME, SELF-CARE Additional Instructions: Your evaluation is consistent with muscle spasm of your paracervical and trapezius muscles. I recommend heat to the area, gentle massage, gentle stretches, and you can continue patches. Stop the baclofen, substitute this for the diazepam, this should gradually resolve with time. Avoid lifting or twisting. Follow-up closely with pain management. Return if you worsen including developing severe headache, vomiting, chest pain, numbness or weakness on one side of your body, or any other concerning or worsening symptoms. Prescriptions: Diazepam [Valium 5 mg Tablet] 1 - 2 tab PO TID PRN #15 tablet PRN Reason: Referrals: CHRISTIANO RENE PA-C [Primary Care Provider] - Follow up as needed
[2019-07-24] MEDS ORDERED: ONDANSETRON 4 MG TAB.RAPDIS PO ONE (23:38)
[2019-07-24] MEDS ORDERED: OXYCODONE-ACETAMINOPHEN 5-325 MG TABLET PO ONE (23:38)
[2019-07-25 00:11] VITALS: BP 165/72
== END 2019-07-25 00:09 | disposition home or self-care (01) ==
LOC: ER 21:41
DX: M54.2 Cervicalgia (principal); M62.838 Other muscle spasm; M54.6 Pain in thoracic spine; F17.200 Nicotine dependence, unspecified, uncomplicated; E78.00 Pure hypercholesterolemia, unspecified; I10 Essential (primary) hypertension; E11.9 Type 2 diabetes mellitus without complications; Z90.710 Acquired absence of both cervix and uterus; Z90.49 Acquired absence of other specified parts of digestive tract
CPT/HCPCS: 99283; A9270 ×2; S0119

== ENCOUNTER → 2019-10-10 | Outpatient (CLI) | payer MEDICARE ==
--- NOTE | 2019-10-10 12:47 | RADIOLOGY REPORT (SQ) ---
EXAM DESCRIPTION: VENOUS UNILATERAL LOWER IMAGES COMPLETED DATE/TIME: 10/10/2019 12:29 pm REASON FOR STUDY: LLE PAIN M79.662 PAIN IN LEFT LOWER LEG COMPARISON: None. TECHNIQUE: Dynamic and static barney scale and color images acquired of the left leg venous system. Se lected spectral images acquired with additional compression and augmentation maneuvers. The contralat eral common femoral vein and saphenofemoral junction were also imaged. Images stored on PACS. LIMITATIONS: None. FINDINGS: COMMON FEMORAL: Normal phasicity, compression and augmentation. No visualized echogenic ma terial on barney scale. No defects on color images. FEMORAL: Normal compression and augmentation. No visualized echogenic material on barney scale. No defe cts on color images. POPLITEAL: Normal compression, augmentation. No visualized echogenic material on barney scale. No defec ts on color images. CALF VESSELS: Normal compression, augmentation. No visualized echogenic material on barney scale. No de fects on color images. Peroneal veins not able be seen. GSV and SSV: Normal compression, augmentation. No visualized echogenic material on barney scale. No def ects on color images. ANY DEEP VENOUS INSUFFICIENCY: Not evaluated. ANY EVIDENCE OF POPLITEAL CYST: No. OTHER: No other significant finding. CONTRALATERAL COMMON FEMORAL VEIN AND SAPHENOFEMORAL JUNCTION: Normal phasicity, compression and augmentation. No visualized echogenic material on barney scale. No de fects on color images. IMPRESSION: NO EVIDENCE DVT OR SVT IN THE LEFT LEG. TECHNICAL DOCUMENTATION: JOB ID: [id number] 2010 [employer]- All Rights Reserved Reading location - IP/workstation name: [email or web address]
== END ==
LOC: SP 10:50
PROVIDERS: ATTEND Orthopaedic Surgery Sports Medicine
DX: M79.662 Pain in left lower leg (principal)
CPT/HCPCS: 93971

== ENCOUNTER 2019-11-11 13:13 | Observation (INO) | payer MEDICARE ==
--- NOTE | 2019-11-11 14:03 | RADIOLOGY REPORT (SQ) ---
EXAM DESCRIPTION: CT HEAD WITHOUT IMAGES COMPLETED DATE/TIME: 11/11/2019 1:47 pm REASON FOR STUDY: FALL, NECK PAIN, BLOOD THINNERS COMPARISON: 01/12/2019. TECHNIQUE: Axial images acquired through the brain without intravenous contrast. Images reviewed wi th bone, brain and subdural windows. Additional sagittal and coronal reconstructions were generated. Images stored on PACS. All CT scanners at this facility use dose modulation, iterative reconstruction, and/or weight based d osing when appropriate to reduce radiation dose to as low as reasonably achievable (ALARA). [facility]: Dose Right [facility]: CareDose [facility]: Dose Right [facility]: Teradose 4D [facility]: [employer] RADIATION DOSE: CT Rad equipment meets quality standard of care and radiation dose reduction techniq ues were employed. CTDIvol: 53.2 mGy. DLP: 991 mGy-cm.mGy. LIMITATIONS: None. FINDINGS: VENTRICLES: Prominent. CEREBRUM: No masses. No hemorrhage. No midline shift. Stable areas of low density in the white mat ter, right greater than left, most likely due to chronic micro-vascular ischemic change. No evidence for acute infarction. CEREBELLUM: No masses. No hemorrhage. No alteration of density. No evidence for acute infarction. EXTRAAXIAL SPACES: Age-related involutional change. No fluid collections. No masses. ORBITS AND GLOBE: No intra- or extraconal masses. Normal contour of globe without masses. CALVARIUM: No fracture. PARANASAL SINUSES: No fluid or mucosal thickening. SOFT TISSUES: No mass or hematoma. OTHER: No other significant finding. IMPRESSION: CHRONIC CHANGES OF ATROPHY AND MICROVASCULAR ISCHEMIA. NO ACUTE PROCESS. EVIDENCE OF ACUTE STROKE: NO. TECHNICAL DOCUMENTATION: JOB ID: [id number] Quality ID # [id number]: Final reports with documentation of one or more dose reduction techniques (e.g., Au tomated exposure control, adjustment of the mA and/or kV according to patient size, use of iterative reconstruction technique) 2010 [employer]- All Rights Reserved Reading location - IP/workstation name: [email or web address]
--- NOTE | 2019-11-11 14:04 | RADIOLOGY REPORT (SQ) ---
EXAM DESCRIPTION: CT CERVICAL SPINE WITHOUT IMAGES COMPLETED DATE/TIME: 11/11/2019 1:47 pm REASON FOR STUDY: FALL, NECK PAIN COMPARISON: 01/12/2019. TECHNIQUE: Axial images acquired through the cervical spine without intravenous contrast. Images re viewed with lung, soft tissue and bone windows. Reconstructed coronal and sagittal MPR images review ed. Images stored on PACS. All CT scanners at this facility use dose modulation, iterative reconstruction, and/or weight based d osing when appropriate to reduce radiation dose to as low as reasonably achievable (ALARA). [facility]: Dose Right [facility]: CareDose [facility]: Dose Right [facility]: Teradose 4D [facility]: [employer] RADIATION DOSE: CT Rad equipment meets quality standard of care and radiation dose reduction techniq ues were employed. CTDIvol: 24.4 mGy. DLP: 510 mGy-cm. mGy. LIMITATIONS: None. FINDINGS: ALIGNMENT: Anatomic. MINERALIZATION: Normal. VERTEBRAL BODIES: No fractures or dislocation. DISCS: Multilevel disc space narrowing with osteophytes. FACETS, LATERAL MASSES, POSTERIOR ELEMENTS: Facet arthropathy. No fractures. No dislocation. No ac iza findings. HARDWARE: None in the spine. VISUALIZED RIBS: No fractures. LUNG APICES AND SOFT TISSUES: No significant or acute findings. OTHER: No other significant finding. IMPRESSION: CHRONIC DEGENERATIVE CHANGES. NO ACUTE FINDINGS. TECHNICAL DOCUMENTATION: JOB ID: [id number] Quality ID # [id number]: Final reports with documentation of one or more dose reduction techniques (e.g., Au tomated exposure control, adjustment of the mA and/or kV according to patient size, use of iterative reconstruction technique) 2010 [employer]- All Rights Reserved Reading location - IP/workstation name: [email or web address]
[2019-11-11 14:30] LABS: ABSOLUTE BASOPHILS # (AUTO) 0.1 10^3/uL (0.0-0.2); ABSOLUTE LYMPHOCYTES (AUTO) 0.8 10^3/uL (0.5-4.7); ABSOLUTE MONOCYTES (AUTO) 0.3 10^3/uL (0.1-1.4); ABSOLUTE NEUT (AUTO) 6.4 10^3/uL (1.7-8.2); BASOPHILS % (AUTO) 0.8 % (0-2); EOSINOPHILS % (AUTO) 0.4 % (0-6); HEMATOCRIT 34.8 % (36.0-47.0); HEMOGLOBIN 11.7 g/dL (12.0-15.5); LYMPHOCYTES % (AUTO) 11.1 % (13-45); MEAN CORPUSCULAR HEMOGLOBIN 29.1 pg (27.0-33.4); MEAN CORPUSCULAR HGB CONC 33.8 g/dL (32.0-36.0); MEAN CORPUSCULAR VOLUME 86 fl (80-97); PLATELET COUNT 487 10^3/uL (150-450); RED BLOOD COUNT 4.03 10^6/uL (3.72-5.28); RED CELL DISTRIBUTION WIDTH 16.1 % (11.5-14.0); SEGMENTED NEUTROPHILS % (AUTO) 83.7 % (42-78); TOTAL CELLS COUNTED % (AUTO) 100 %; WHITE BLOOD COUNT 7.6 10^3/uL (4.0-10.5)
[2019-11-11 14:34] LABS: APPEARANCE,URINE SLIGHTLY-CLOUDY; BILIRUBIN,URINE NEGATIVE (NEGATIVE); COLOR,URINE YELLOW; GLUCOSE, URINE NEGATIVE (NEGATIVE); KETONES,URINE NEGATIVE (NEGATIVE); LEUKOCYTE ESTERASE,URINE NEGATIVE (NEGATIVE); NITRITE,URINE NEGATIVE (NEGATIVE); PROTEIN,URINE 30 mg/dL (NEGATIVE); URINE SPECIFIC GRAVITY 1.013; UROBILINOGEN,URINE NEGATIVE mg/dL (<2.0)
[2019-11-11 14:54] LABS: ALBUMIN 4.3 g/dL (3.5-5.0); ALKALINE PHOSPHATASE 163 U/L (38-126); ANION GAP 7 (5-19); ASPARTATE AMINO TRANSFERASE 27 U/L (14-36); BILIRUBIN,TOTAL 0.5 mg/dL (0.2-1.3); BLOOD UREA NITROGEN 4 mg/dL (7-20); CARBON DIOXIDE 28 mmol/L (22-30); CHLORIDE 95 mmol/L (98-107); CREATINE KINASE 85 U/L (30-135); GLUCOSE 122 mg/dL (75-110); POTASSIUM 4.6 mmol/L (3.6-5.0); TOTAL PROTEIN 8.5 g/dL (6.3-8.2)
--- NOTE | 2019-11-11 14:57 | ER Document Report ---
Entered by ARACELY MICHAEL SCRIBE 11/11/19 1412 Acting as scribe for:SHAR GROVES MD ED Dizziness/Weakness - General Chief Complaint: Fall Stated Complaint: SYNCOPE Time Seen by Provider: 11/11/19 13:29 Primary Care Provider: VIJAYA HARDY MD [NO LOCAL MD] - Follow up as needed Mode of Arrival: Ambulatory Information source: Patient Notes: This 69 year old female patient with multiple sclerosis presents to the emergency department today with complaints of "feeling woozy when she was getting up off the toilet" just prior to arrival. Patient then states that she had not yet sat down on the toilet, that she was walking in and felt "dizzy and wobbly" when this syncopal event occurred. Patient states that she was "told by her daughter that she was knocked out and snoring". Patient mentions that she was started on a new MS drug recently, getting one injection of Octrevus on October 23 and one 4 days ago on 06 November. Patient complains of right-sided neck pain which is chronic. TRAVEL OUTSIDE OF THE [place] IN LAST 30 DAYS: No - Related Data Allergies/Adverse Reactions: No Known Allergies Allergy (Verified 01/12/19 15:59) Home Medications: proair, baclofen, levothyroxine, losartan, potassium, furosemide, carbamazepine, omperazole, prozac, xarelto, symbicort Past Medical History - General Information source: Patient - Social History Smoking Status: Current Every Day Smoker Cigarette use (# per day): Yes - 1/4 PPD Chew tobacco use (# tins/day): No Frequency of alcohol use: None Drug Abuse: None Family History: Reviewed & Not Pertinent, Other - Past Medical History Cardiac Medical History: Reports: Hx Atrial Fibrillation, Hx Hypercholesterolemia, Hx Hypertension, Hx Pulmonary Embolism Pulmonary Medical History: Reports: Hx COPD Neurological Medical History: Reports: Hx Migraine, Other - Multiple sclerosis Endocrine Medical History: Reports: Other - Was once told she was prediabetic Musculoskeletal Medical History: Reports Hx Arthritis - I did 9 0 she gets nauseous Rub all over body Psychiatric Medical History: Reports: Hx Depression Past Surgical History: Reports: Hx Abdominal Surgery - They got the 4 feet of int4 ft of intestines removed, colostomy and revised, Hx Appendectomy, Hx Cholecystectomy, Hx Colostomy, Hx Hysterectomy - Immunizations Hx Diphtheria, Pertussis, Tetanus Vaccination: Yes Review of Systems - Review of Systems Constitutional: No symptoms reported EENT: No symptoms reported Cardiovascular: See HPI, Syncope, Dizziness, Lightheaded Respiratory: No symptoms reported Gastrointestinal: No symptoms reported Genitourinary: No symptoms reported Female Genitourinary: No symptoms reported Musculoskeletal: See HPI, Muscle pain - neck Skin: No symptoms reported Hematologic/Lymphatic: No symptoms reported Neurological/Psychological: No symptoms reported -: Yes All other systems reviewed and negative Physical Exam - Vital signs Vitals: Temp Resp Pulse Ox 98.1 F 12 97 11/11/19 13:22 11/11/19 13:22 11/11/19 13:22 - Notes Notes: Physical Exam: General: Alert, appears well. HEENT: Normocephalic. Atraumatic. PERRL. Extraocular movements intact. Oropharynx clear. Slight right lateral gaze nystagmus. There are no step-offs, deformities, or hematomas to the head. There is no tenderness or swelling noted to the occipital scalp. Neck: Supple. Right posterior cervical paraspinal neck muscles are slightly tender with palpation. Respiratory: No respiratory distress. Clear and equal breath sounds bilaterally. Cardiovascular: Regular rate and rhythm. Abdominal: Normal Inspection. Non-tender. No distension. Normal Bowel Sounds. Back: No gross abnormalities. Extremities: Moves all four extremities. Upper extremities: Normal inspection. Normal ROM. Lower extremities: Normal inspection. No edema. Normal ROM. Neurological: Normal cognition. AAOx4. Normal speech. Psychological: Normal affect. Normal Mood. Skin: Warm. Dry. Normal color. Course - Re-evaluation Re-evalutation: 11/11/19 15:56 The nurse informed me that the patient's daughter called earlier wanting the patient to stay here for 3 weeks because the daughter could not provide adequate care at home. The patient does have a walker at home but does not always use it, such as today. The patient is upset because EMS did not bring her walker with them to the hospital today. Later the daughter called back and stated she wanted the patient to get a chest x-ray because she has been short of breath for 6 weeks and wants her COVID tested again. She was tested recently but they only swab her nose and she wants the test where they go all the way back to her brain. - Vital Signs Vital signs: Temp Pulse Resp BP Pulse Ox 98.1 F 17 151/65 H 100 11/11/19 13:22 11/11/19 16:01 11/11/19 16:00 11/11/19 16:01 - Laboratory Result Diagrams: 11/11/19 14:15 11/11/19 14:15 Laboratory results interpreted by me: 11/11/19 11/11/19 11/11/19 14:15 14:15 14:15 Hgb 11.7 L Hct 34.8 L RDW 16.1 H Plt Count 487 H Lymph % (Auto) 11.1 L Seg Neutrophils % 83.7 H Sodium 130.4 L Chloride 95 L BUN 4 L Creatinine 0.44 L Glucose 122 H Alkaline Phosphatase 163 H Total Protein 8.5 H Urine Protein 30 H - Diagnostic Test Radiology reviewed: Image reviewed, Reports reviewed - CT head shows chronic microvascular ischemic changes and atrophy without acute event. CT cervical spine shows chronic degenerative changes without acute changes. - EKG Interpretation by Me EKG shows normal: Sinus rhythm, [place], Intervals, QRS Complexes, ST-T Waves Rate: Normal - 76 Rhythm: NSR Voltage: Consistant with [facility] Discharge - Discharge Clinical Impression: Syncope and collapse, Dizziness, Multiple sclerosis, Hyponatremia Fall Qualifiers: Encounter type: initial encounter Qualified Code(s): W19.XXXA - Unspecified fall, initial encounter Condition: Stable Disposition: ADMITTED OBSERVATION Admitting Provider: [facility] (Hospitalist) - Chuck Pinto, SHORT STORY WRITER will be seeing the patient in writing orders. Referrals: VIJAYA HARDY MD [NO LOCAL MD] - Follow up as needed I personally performed the services described in the documentation, reviewed and edited the documentation which was dictated to the scribe in my presence, and it accurately records my words and actions.
--- NOTE | 2019-11-11 16:54 | RADIOLOGY REPORT (SQ) ---
EXAM DESCRIPTION: CHEST SINGLE VIEW IMAGES COMPLETED DATE/TIME: 11/11/2019 4:46 pm REASON FOR STUDY: Daughter states patient has been SOB 6wks COMPARISON: 01/12/2019. EXAM PARAMETERS: NUMBER OF VIEWS: One view. TECHNIQUE: Single frontal radiographic view of the chest acquired. RADIATION DOSE: NA LIMITATIONS: None. FINDINGS: LUNGS AND PLEURA: No opacities, masses or pneumothorax. No pleural effusion. MEDIASTINUM AND HILAR STRUCTURES: No masses. Contour normal. HEART AND VASCULAR STRUCTURES: Heart normal in size. Normal vasculature. BONES: No acute findings. HARDWARE: None in the chest. OTHER: No other significant finding. IMPRESSION: NO ACUTE RADIOGRAPHIC FINDING IN THE CHEST. TECHNICAL DOCUMENTATION: JOB ID: [id number] 2010 [employer]- All Rights Reserved Reading location - IP/workstation name: [email or web address]
[2019-11-11] MEDS ORDERED: NORMAL SALINE 1000 ML 1,000 ML IV PRN (18:57)
[2019-11-11] MEDS ORDERED: ONDANSETRON HCL INJ/PF 4 MG/2 ML SDV ONE (19:49)
[2019-11-11] MEDS: ONDANSETRON HCL INJ/PF 4 MG/2 ML SDV IV PRN (20:16)
[2019-11-11] MEDS ORDERED: OXYCODONE-ACETAMINOPHEN 5-325 MG TABLET PO PRN (20:43)
[2019-11-11] MEDS ORDERED: DICLOFENAC SODIUM 1 GM TOP PRN (20:43)
--- NOTE | 2019-11-11 21:03 | PDOC H&P ---
History of Present Illness Admission Date/PCP: 11/11/19 17:21 STEPHANIE HANDLEY MD Patient complains of: Dizziness/wobbly feeling/syncope History of Present Illness: GRECIA COBOS is a 69 year old female with PMH significant for MS, HTN, dyslipidemia, COPD, current tobacco use, chronic pain syndrome, DVT, PE (on chronic anticoagulation), hypothyroidism, and GERD who presented to the ED complaining of dizziness. The patient states that she has been feeling wobbly and dizzy today. She states that this afternoon she was getting off of the toilet and felt dizzy and apparently had a syncopal episode. This was reported by the daughter who states that her mother was found on the floor. The ED a CT of the brain was completed which revealed chronic changes of atrophy and microvascular ischemia but no acute process. Additionally a CT of the cervical spine was also completed which revealed chronic degenerative changes but no acute findings. The hospitalist service was asked to admit the patient to observation for further evaluation and treatment. Past Medical History Cardiac Medical History: Reports: Atrial Fibrillation, DVT, Hyperlipidema, Hypertension, Pulmonary Embolism Pulmonary Medical History: Reports: Chronic Obstructive Pulmonary Disease (COPD) EENT Medical History: Reports: None Neurological Medical History: Reports: Migraine, Other - Multiple sclerosis Endocrine Medical History: Reports: Other - Was once told that she was prediabetic Renal/ Medical History: Reports: None Malignancy Medical History: Reports: None GI Medical History: Reports: Gastroesophageal Reflux Disease Musculoskeltal Medical History: Reports: Arthritis - I did 9 0 she gets nauseous Rub all over body Skin Medical History: Reports: None Psychiatric Medical History: Reports: Depression Traumatic Medical History: Reports: None Hematology: Reports: None Infectious Medical History: Reports: None Past Surgical History Past Surgical History: Reports: Appendectomy, Cholecystectomy, Colostomy, Hysterectomy Social History Information Source: Patient Lives with: Other - Patient lives with daughter Smoking Status: Current Every Day Smoker Electronic Cigarette use?: No Frequency of Alcohol Use: None Hx Recreational Drug Use: No Drugs: None - Advance Directive Resuscitation Status: Full Code Family History Family History: CAD, Malignancy Parental Family History Reviewed: Yes Children Family History Reviewed: Yes Sibling(s) Family History Reviewed.: Yes Medication/Allergy Home Medications: Budesonide/Formoterol Fumarate [Symbicort HFA 160-4.5 mcg Inhaler 6 gm] 2 puff IH Q12 07/24/20 Diclofenac Sodium 1 gm TOP BIDP PRN 11/11/19 Furosemide [Lasix 20 mg Tablet] 20 mg PO DAILY 11/11/19 Omeprazole 40 mg PO DAILY 11/11/19 Oxycodone HCl/Acetaminophen [Percocet 5-325 mg Tablet] 1 tab PO BIDP PRN 11/11/19 Potassium Chloride [Klor-Con 10 Meq Tablet ER] 10 meq PO DAILY 11/11/19 Pregabalin [Lyrica] 200 mg PO TID 11/11/19 Rivaroxaban [Xarelto] 20 mg PO DAILY 11/11/19 Allergies/Adverse Reactions: No Known Allergies Allergy (Verified 01/12/19 15:59) Physical Exam Vital Signs: Temp Pulse Resp BP Pulse Ox 98.8 F 74 18 168/61 H 98 11/11/19 19:21 11/11/19 19:21 11/11/19 19:21 11/11/19 19:21 11/11/19 19:21 Intake & Output 11/10/19 11/11/19 11/12/19 06:59 06:59 06:59 Weight 91.5 kg General appearance: PRESENT: no acute distress, cooperative, obese Head exam: PRESENT: atraumatic, normocephalic Eye exam: ABSENT: conjunctiva pink Mouth exam: PRESENT: moist, tongue midline Teeth exam: PRESENT: edentulous Neck exam: PRESENT: full ROM. ABSENT: JVD, lymphadenopathy Respiratory exam: PRESENT: clear to auscultation baljinder, symmetrical, unlabored. ABSENT: accessory muscle use Cardiovascular exam: PRESENT: RRR, +S1, +S2 Pulses: PRESENT: normal carotid pulses Vascular exam: PRESENT: normal capillary refill GI/Abdominal exam: PRESENT: normal bowel sounds, soft. ABSENT: distended, tenderness Rectal exam: PRESENT: deferred Extremities exam: PRESENT: pedal edema - Trace pretibial edema bilaterally. ABSENT: calf tenderness, clubbing Musculoskeletal exam: PRESENT: ambulatory, full ROM Neurological exam: PRESENT: alert, awake, oriented to person, oriented to place, oriented to time, oriented to situation, CN II-XII grossly intact, other - Patient has occasional word finding issues but states that this is typical in 2/2 MS Psychiatric exam: ABSENT: agitated, anxious Skin exam: PRESENT: intact, normal color, warm Results Laboratory Results: 11/11/19 14:15 11/11/19 14:15 11/11/19 11/11/19 11/11/19 14:15 14:15 14:15 WBC 7.6 RBC 4.03 Hgb 11.7 L Hct 34.8 L MCV 86 MCH 29.1 MCHC 33.8 RDW 16.1 H Plt Count 487 H Seg Neutrophils % 83.7 H Sodium 130.4 L Potassium 4.6 Chloride 95 L Carbon Dioxide 28 Anion Gap 7 BUN 4 L Creatinine 0.44 L Est GFR ( Amer) > 60 Glucose 122 H Calcium 10.0 Total Bilirubin 0.5 AST 27 Alkaline Phosphatase 163 H Total Protein 8.5 H Albumin 4.3 Urine Color YELLOW Urine Appearance SLIGHTLY-CLOUDY Urine pH 9.0 Ur Specific [place] 1.013 Urine Protein 30 H Urine Glucose (UA) NEGATIVE Urine Ketones NEGATIVE Urine Blood NEGATIVE Urine Nitrite NEGATIVE Ur Leukocyte Esterase NEGATIVE Urine WBC (Auto) 1 Urine RBC (Auto) 1 11/11/19 11/11/19 14:15 14:15 Creatine Kinase 85 Troponin I < 0.012 Impressions: Cervical Spine CT 11/11/19 00:00 IMPRESSION: CHRONIC DEGENERATIVE CHANGES. NO ACUTE FINDINGS. Head CT 11/11/19 00:00 IMPRESSION: CHRONIC CHANGES OF ATROPHY AND MICROVASCULAR ISCHEMIA. NO ACUTE PROCESS. EVIDENCE OF ACUTE STROKE: NO. Chest X-Ray 11/11/19 15:37 IMPRESSION: NO ACUTE RADIOGRAPHIC FINDING IN THE CHEST. Assessment and Plan - Diagnosis (1) Hyponatremia Is this a current diagnosis for this admission?: Yes Plan: Patient mildly hyponatremic Initiate 1200 cc fluid restriction Start NS at 75 cc/h BMP in a.m. (2) Syncope and collapse Is this a current diagnosis for this admission?: Yes Plan: Patient remains dizzy however is had no further syncopal episodes CT brain unremarkable (3) Dizziness Is this a current diagnosis for this admission?: Yes Plan: Patient continues to complain of mild dizziness (4) Multiple sclerosis Is this a current diagnosis for this admission?: Yes Plan: Supportive care (5) HTN (hypertension) Is this a current diagnosis for this admission?: Yes Plan: Continue losartan 25 mg p.o. daily (6) GERD (gastroesophageal reflux disease) Is this a current diagnosis for this admission?: Yes Plan: Continue pantoprazole 40 mg p.o. daily (7) Chronic pain syndrome Is this a current diagnosis for this admission?: Yes Plan: Continue oxycodone/APAP 5/325 mg p.o. twice daily PRN Continue pregabalin 200 mg p.o. 3 times daily Continue fluoxetine 20 mg p.o. daily (8) Anemia Is this a current diagnosis for this admission?: Yes Plan: No treatment indicated at this time Recommend outpatient work-up CBC in a.m. (9) Hypothyroidism Is this a current diagnosis for this admission?: Yes Plan: To new current replacement therapy (levothyroxine 0.05 mg p.o. daily) - Time Time Spent with patient: 35 or more minutes Smoking Cessation Education: 3 to 10 minutes Medications reviewed and adjusted accordingly: Yes Anticipated Discharge Disposition: Home, Self Care Anticipated Discharge: within 24 hours
[2019-11-12] MEDS: ONDANSETRON HCL INJ/PF 4 MG/2 ML SDV IV PRN (01:56)
[2019-11-12 05:17] LABS: HEMATOCRIT 34.9 % (36.0-47.0); HEMOGLOBIN 11.6 g/dL (12.0-15.5); MEAN CORPUSCULAR HGB CONC 33.4 g/dL (32.0-36.0); MEAN CORPUSCULAR VOLUME 87 fl (80-97); PLATELET COUNT 453 10^3/uL (150-450); RED BLOOD COUNT 4.01 10^6/uL (3.72-5.28); WHITE BLOOD COUNT 7.5 10^3/uL (4.0-10.5)
[2019-11-12 05:37] LABS: ANION GAP 6 (5-19); BLOOD UREA NITROGEN 5 mg/dL (7-20); CALCIUM 10.1 mg/dL (8.4-10.2); CARBON DIOXIDE 26 mmol/L (22-30); CHLORIDE 100 mmol/L (98-107); GLUCOSE 122 mg/dL (75-110); POTASSIUM 4.2 mmol/L (3.6-5.0)
[2019-11-12] MEDS ORDERED: LEVOTHYROXINE SODIUM 0.05 MG TABLET PO SCH (06:00)
[2019-11-12 08:38] VITALS: BP 148/71
[2019-11-12] MEDS ORDERED: LOSARTAN POTASSIUM 25 MG TABLET PO SCH (10:00)
[2019-11-12] MEDS ORDERED: FLUOXETINE HCL 20 MG CAPSULE PO SCH (10:00)
[2019-11-12] MEDS ORDERED: (PENDING PHARMACY ID) (Pregabalin [Lyrica] 200 MG) PO SCH (10:00)
[2019-11-12] MEDS ORDERED: PANTOPRAZOLE SODIUM 40 MG TABLET.DR PO SCH (10:00)
[2019-11-12] MEDS ORDERED: PREGABALIN 100 MG CAPSULE PO SCH (10:00)
[2019-11-12] MEDS ORDERED: FLUTICASONE/VILANTEROL 200-25 MCG/DOSE IH SCH (10:00)
[2019-11-12] MEDS ORDERED: ENOXAPARIN SODIUM INJ 40 MG/0.4 ML DISP.SYRIN SUBCUT SCH (10:00)
[2019-11-12] MEDS ORDERED: RIVAROXABAN 10 MG TABLET PO SCH (10:00)
--- NOTE | 2019-11-12 10:25 | EKG REPORT ---
SEVERITY:- ABNORMAL ECG - SINUS RHYTHM LEFT VENTRICULAR HYPERTROPHY : Confirmed by: Contreras Mcintosh 12-Nov-2019 10:24:28
--- NOTE | 2019-11-12 10:25 | EKG REPORT ---
SEVERITY:- ABNORMAL ECG - SINUS RHYTHM PROMINENT P WAVES, NONDIAGNOSTIC CONSIDER LEFT VENTRICULAR HYPERTROPHY : Confirmed by: Contreras Mcintosh 12-Nov-2019 10:24:23
--- NOTE | 2019-11-12 11:25 | PDOC DISCHARGE SUMMARY ---
Impression - Admit/DC Date/PCP Admission Date/Primary Care Provider: 11/11/19 17:21 STEPHANIE HANDLEY MD Discharge Date: 11/12/19 - Discharge Diagnosis (1) Hyponatremia Is this a current diagnosis for this admission?: Yes (2) Syncope and collapse Is this a current diagnosis for this admission?: Yes (3) Dizziness Is this a current diagnosis for this admission?: Yes (4) Multiple sclerosis Is this a current diagnosis for this admission?: Yes (5) HTN (hypertension) Is this a current diagnosis for this admission?: Yes (6) GERD (gastroesophageal reflux disease) Is this a current diagnosis for this admission?: Yes (7) Chronic pain syndrome Is this a current diagnosis for this admission?: Yes (8) Anemia Is this a current diagnosis for this admission?: Yes (9) Hypothyroidism Is this a current diagnosis for this admission?: Yes - Additional Information Resuscitation Status: Full Code Discharge Diet: Cardiac Discharge Activity: Activity As Tolerated Referrals: VIJAYA HARDY MD [NO LOCAL MD] - Follow up as needed Home Medications: Budesonide/Formoterol Fumarate [Symbicort HFA 160-4.5 mcg Inhaler 6 gm] 2 puff IH Q12 11/11/19 Diclofenac Sodium 1 gm TOP BIDP PRN 11/11/19 Furosemide [Lasix 20 mg Tablet] 20 mg PO DAILY 11/11/19 Omeprazole 40 mg PO DAILY 11/11/19 Oxycodone HCl/Acetaminophen [Percocet 5-325 mg Tablet] 1 tab PO BIDP PRN 11/11/19 Potassium Chloride [Klor-Con 10 Meq Tablet ER] 10 meq PO DAILY 11/11/19 Pregabalin [Lyrica] 200 mg PO TID 11/11/19 Rivaroxaban [Xarelto] 20 mg PO DAILY 11/11/19 Fluoxetine HCl [Prozac 20 mg Capsule] 20 mg PO DAILY capsule 11/12/19 Levothyroxine Sodium [Synthroid 0.05 mg Tablet] 0.05 mg PO Q6AM tablet 11/12/19 Losartan Potassium [Cozaar 25 mg Tablet] 25 mg PO DAILY tablet 11/12/19 History of Present Illiness History of Present Illness: GRECIA COBOS is a 69 year old female with PMH significant for MS, HTN, dyslipidemia, COPD, current tobacco use, chronic pain syndrome, DVT, PE (on chronic anticoagulation), hypothyroidism, and GERD who presented to the ED complaining of dizziness. The patient states that she has been feeling wobbly and dizzy today. She states that this afternoon she was getting off of the toilet and felt dizzy and apparently had a syncopal episode. This was reported by the daughter who states that her mother was found on the floor. The ED a CT of the brain was completed which revealed chronic changes of atrophy and microvascular ischemia but no acute process. Additionally a CT of the cervical spine was also completed which revealed chronic degenerative changes but no acute findings. The hospitalist service was asked to admit the patient to observation for further evaluation and treatment. Hospital Course Hospital Course: In the morning following admission the patient was evaluated and stated that she felt back to her baseline. She denied dizziness, nausea, vomiting, presyncope, and had had no further syncopal episodes. Her sodium had increased to 132.2. The patient was counseled to maintain a 1500 cc fluid restriction and instructed that if she felt the need to drink additional fluids she should use electrolyte rich products such as Gatorade Physical Exam Vital Signs: Temp Pulse Resp BP Pulse Ox 99.3 F 76 17 148/71 H 100 11/12/19 07:45 11/12/19 07:45 11/12/19 07:45 11/12/19 07:45 11/12/19 07:45 Intake & Output 11/11/19 11/12/19 11/13/19 06:59 06:59 06:59 Intake Total 400 Balance 400 Weight 92.6 kg General appearance: PRESENT: no acute distress, cooperative, obese Head exam: PRESENT: atraumatic, normocephalic Eye exam: PRESENT: conjunctiva pink Mouth exam: PRESENT: moist, tongue midline Teeth exam: PRESENT: edentulous Neck exam: ABSENT: JVD Respiratory exam: PRESENT: clear to auscultation baljinder, symmetrical, unlabored. ABSENT: accessory muscle use Cardiovascular exam: PRESENT: RRR, +S1, +S2 Pulses: PRESENT: normal carotid pulses, normal radial pulses Vascular exam: PRESENT: normal capillary refill GI/Abdominal exam: PRESENT: normal bowel sounds, soft. ABSENT: distended, tenderness Rectal exam: PRESENT: deferred Extremities exam: PRESENT: other - Trace pretibial edema bilaterally. ABSENT: calf tenderness Neurological exam: PRESENT: alert, awake, oriented to person, oriented to place, oriented to time, oriented to situation, other - Patient continues to have some word finding difficulties however she states that this is her baseline 2/2 MS Psychiatric exam: PRESENT: appropriate affect, normal mood. ABSENT: agitated, anxious Skin exam: PRESENT: dry, normal color, warm Results Laboratory Results: WBC 7.5 10^3/uL (4.0-10.5) 11/12/19 04:31 RBC 4.01 10^6/uL (3.72-5.28) 11/12/19 04:31 Hgb 11.6 g/dL (12.0-15.5) L 11/12/19 04:31 Hct 34.9 % (36.0-47.0) L 11/12/19 04:31 MCV 87 fl (80-97) 11/12/19 04:31 MCH 29.0 pg (27.0-33.4) 11/12/19 04:31 MCHC 33.4 g/dL (32.0-36.0) 11/12/19 04:31 RDW 16.0 % (11.5-14.0) H 11/12/19 04:31 Plt Count 453 10^3/uL (150-450) H 11/12/19 04:31 Lymph % (Auto) 11.1 % (13-45) L 11/11/19 14:15 [place] % (Auto) 4.0 % (3-13) 11/11/19 14:15 Eos % (Auto) 0.4 % (0-6) 11/11/19 14:15 Baso % (Auto) 0.8 % (0-2) 11/11/19 14:15 Absolute Neuts (auto) 6.4 10^3/uL (1.7-8.2) 11/11/19 14:15 Absolute Lymphs (auto) 0.8 10^3/uL (0.5-4.7) 11/11/19 14:15 Absolute Monos (auto) 0.3 10^3/uL (0.1-1.4) 11/11/19 14:15 Absolute Eos (auto) 0.0 10^3/uL (0.0-0.6) 11/11/19 14:15 Absolute Basos (auto) 0.1 10^3/uL (0.0-0.2) 11/11/19 14:15 Seg Neutrophils % 83.7 % (42-78) H 11/11/19 14:15 Sodium 132.2 mmol/L (137-145) L 11/12/19 04:31 Potassium 4.2 mmol/L (3.6-5.0) 11/12/19 04:31 Chloride 100 mmol/L (98-107) 11/12/19 04:31 Carbon Dioxide 26 mmol/L (22-30) 11/12/19 04:31 Anion Gap 6 (5-19) 11/12/19 04:31 BUN 5 mg/dL (7-20) L 11/12/19 04:31 Creatinine 0.51 mg/dL (0.52-1.25) L 11/12/19 04:31 Est GFR ( Amer) > 60 (>60) 11/12/19 04:31 Est GFR (MDRD) Non-Af > 60 (>60) 11/12/19 04:31 Glucose 122 mg/dL (75-110) H 11/12/19 04:31 Calcium 10.1 mg/dL (8.4-10.2) 11/12/19 04:31 Total Bilirubin 0.5 mg/dL (0.2-1.3) 11/11/19 14:15 Direct Bilirubin 0.0 mg/dL (0.0-0.4) 11/11/19 14:15 Neonat Total Bilirubin Not Reportable 11/11/19 14:15 Neonat Direct Bilirubin Not Reportable 11/11/19 14:15 Neonat Indirect Bili Not Reportable 11/11/19 14:15 AST 27 U/L (14-36) 11/11/19 14:15 ALT 13 U/L (<35) 11/11/19 14:15 Alkaline Phosphatase 163 U/L (38-126) H 11/11/19 14:15 Creatine Kinase 85 U/L (30-135) 11/11/19 14:15 Troponin I < 0.012 ng/mL 11/11/19 14:15 Total Protein 8.5 g/dL (6.3-8.2) H 11/11/19 14:15 Albumin 4.3 g/dL (3.5-5.0) 11/11/19 14:15 Urine Color YELLOW 11/11/19 14:15 Urine Appearance SLIGHTLY-CLOUDY 11/11/19 14:15 Urine pH 9.0 (5.0-9.0) 11/11/19 14:15 Ur Specific [place] 1.013 11/11/19 14:15 Urine Protein 30 mg/dL (NEGATIVE) H 11/11/19 14:15 Urine Glucose (UA) NEGATIVE mg/dL (NEGATIVE) 11/11/19 14:15 Urine Ketones NEGATIVE mg/dL (NEGATIVE) 11/11/19 14:15 Urine Blood NEGATIVE (NEGATIVE) 11/11/19 14:15 Urine Nitrite NEGATIVE (NEGATIVE) 11/11/19 14:15 Urine Bilirubin NEGATIVE (NEGATIVE) 11/11/19 14:15 Urine Urobilinogen NEGATIVE mg/dL (<2.0) 11/11/19 14:15 Ur Leukocyte Esterase NEGATIVE (NEGATIVE) 11/11/19 14:15 Urine WBC (Auto) 1 /HPF 11/11/19 14:15 Urine RBC (Auto) 1 /HPF 11/11/19 14:15 Urine Bacteria (Auto) TRACE /HPF 11/11/19 14:15 Squamous Epi Cells Auto 4 /HPF 11/11/19 14:15 Urine Mucus (Auto) RARE /LPF 11/11/19 14:15 Urine Ascorbic Acid NEGATIVE (NEGATIVE) 11/11/19 14:15 11/11/19 14:15 Troponin I < 0.012 Impressions: Cervical Spine CT 11/11/19 00:00 IMPRESSION: CHRONIC DEGENERATIVE CHANGES. NO ACUTE FINDINGS. Head CT 11/11/19 00:00 IMPRESSION: CHRONIC CHANGES OF ATROPHY AND MICROVASCULAR ISCHEMIA. NO ACUTE PROCESS. EVIDENCE OF ACUTE STROKE: NO. Chest X-Ray 11/11/19 15:37 IMPRESSION: NO ACUTE RADIOGRAPHIC FINDING IN THE CHEST. Plan Plan of Treatment: Patient was advised to restrict fluids to 1500 cc daily Patient was advised that if she wanted to take additional fluid intake to use electrolyte rich products such as Gatorade Goals: Follow-up with PCP within 1 week of discharge Time Spent: Greater than 30 Minutes Stroke Is this a Stroke Patient?: No Acute Heart Failure - Is this a Heart Failure Patient?: No
== END 2019-11-12 12:58 | disposition home or self-care (01) ==
LOC: ER 13:13 → EH 17:21 → 3N 18:16
PROVIDERS: ADMIT Emergency Medicine; ATTEND Nurse Practitioner
DX: R55 Syncope and collapse (principal); R42 Dizziness and giddiness; E87.1 Hypo-osmolality and hyponatremia; G35 Multiple sclerosis; I10 Essential (primary) hypertension; K21.9 Gastro-esophageal reflux disease without esophagitis; G89.4 Chronic pain syndrome; D64.9 Anemia, unspecified; E03.9 Hypothyroidism, unspecified; J44.9 Chronic obstructive pulmonary disease, unspecified; E66.9 Obesity, unspecified; R60.0 Localized edema; M50.30 Other cervical disc degeneration, unspecified cervical region; R06.02 Shortness of breath; Z03.818 Encounter for observation for suspected exposure to other biological agents ruled out; M19.90 Unspecified osteoarthritis, unspecified site; F17.210 Nicotine dependence, cigarettes, uncomplicated; Z79.899 Other long term (current) drug therapy; Z79.51 Long term (current) use of inhaled steroids; Z86.718 Personal history of other venous thrombosis and embolism; Z79.01 Long term (current) use of anticoagulants; Z86.711 Personal history of pulmonary embolism; Z79.890 Hormone replacement therapy; Z90.49 Acquired absence of other specified parts of digestive tract; Z82.49 Family history of ischemic heart disease and other diseases of the circulatory system
CPT/HCPCS: 93005 ×2; 99285; 36415 ×2; 82550; 85025; 85027; 80048; 80053; 81001; 84484; 71045; 70450; 72125; 93010; 99406; U0003; A9270 ×7; J3490 ×2; J2405 ×2; J7030; C9803; 87635; G0378

== ENCOUNTER 2019-11-25 12:57 | Emergency (ER) | payer MEDICARE ==
--- NOTE | 2019-11-25 14:34 | ER Document Report ---
ED Medical Screen (RME) - General Chief Complaint: Leg Pain Stated Complaint: LEFT GROIN/LEG PAIN Time Seen by Provider: 11/25/19 14:12 Primary Care Provider: STEPHANIE HANDLEY MD [Primary Care Provider] - Follow up as needed Notes: Patient is a 69-year-old female who presents emergency department with a chief complaint of left groin and left lateral lower extremity pain. Patient states that her primary care provider sent her to rule out a blood clot. Patient is currently on Xarelto. Patient's pain in her groin area started about 3 days ago. Patient also had a knee replacement [facility] recently. Exam: Edema noted to left lower extremity. Venous Doppler ordered basic labs ordered. I have greeted and performed a rapid initial assessment of this patient. A comprehensive ED assessment and evaluation of the patient, analysis of test results and completion of medical decision making process will be conducted by an additional ED providers. TRAVEL OUTSIDE OF THE [place] IN LAST 30 DAYS: No - Related Data Allergies/Adverse Reactions: No Known Allergies Allergy (Verified 01/12/19 15:59) Past Medical History - Social History Chew tobacco use (# tins/day): No Drug Abuse: None - Past Medical History Cardiac Medical History: Reports: Hx Atrial Fibrillation, Hx DVT, Hx Hypercholesterolemia, Hx Hypertension, Hx Pulmonary Embolism Pulmonary Medical History: Reports: Hx COPD Neurological Medical History: Reports: Hx Migraine Endocrine Medical History: Reports: Hx Diabetes Mellitus Type 2 - Borderline, diet controlled Renal/ Medical History: Denies: Hx Peritoneal Dialysis GI Medical History: Reports: Hx Gastroesophageal Reflux Disease Musculoskeltal Medical History: Reports Hx Arthritis - I did 9 0 she gets nauseous Rub all over body Psychiatric Medical History: Reports: Hx Depression Past Surgical History: Reports: Hx Abdominal Surgery - They got the 4 feet of int4 ft of intestines removed, colostomy and revised, Hx Appendectomy, Hx Cholecystectomy, Hx Colostomy, Hx Hysterectomy - Immunizations Hx Diphtheria, Pertussis, Tetanus Vaccination: Yes Physical Exam - Vital signs Vitals: Temp Pulse Resp BP Pulse Ox 98.7 F 81 18 171/68 H 97 11/25/19 13:03 11/25/19 13:03 11/25/19 13:03 11/25/19 13:03 11/25/19 13:03 Course - Vital Signs Vital signs: Temp Pulse Resp BP Pulse Ox 98.7 F 81 18 171/68 H 97 11/25/19 13:03 11/25/19 13:03 11/25/19 13:03 11/25/19 13:03 11/25/19 13:03 Doctor's Discharge - Discharge Referrals: STEPHANIE HANDLEY MD [Primary Care Provider] - Follow up as needed
[2019-11-25 15:11] LABS: ABSOLUTE EOSINOPHILS # (AUTO) 0.1 10^3/uL (0.0-0.6); ABSOLUTE LYMPHOCYTES (AUTO) 0.9 10^3/uL (0.5-4.7); ABSOLUTE MONOCYTES (AUTO) 0.3 10^3/uL (0.1-1.4); ABSOLUTE NEUT (AUTO) 6.1 10^3/uL (1.7-8.2); BASOPHILS % (AUTO) 0.5 % (0-2); EOSINOPHILS % (AUTO) 0.8 % (0-6); HEMOGLOBIN 12.6 g/dL (12.0-15.5); MEAN CORPUSCULAR HEMOGLOBIN 29.3 pg (27.0-33.4); MEAN CORPUSCULAR HGB CONC 34.1 g/dL (32.0-36.0); MEAN CORPUSCULAR VOLUME 86 fl (80-97); MONOCYTES % (AUTO) 3.6 % (3-13); PLATELET COUNT 324 10^3/uL (150-450); RED BLOOD COUNT 4.31 10^6/uL (3.72-5.28); RED CELL DISTRIBUTION WIDTH 15.7 % (11.5-14.0); SEGMENTED NEUTROPHILS % (AUTO) 83.1 % (42-78); TOTAL CELLS COUNTED % (AUTO) 100 %; WHITE BLOOD COUNT 7.4 10^3/uL (4.0-10.5)
[2019-11-25 15:20] LABS: INTERNATIONAL RATION (INR) 1.49; PROTHROMBIN TIME 18.2 SEC (11.4-15.4)
[2019-11-25 15:21] LABS: PARTIAL THROMBOPLASTIN TIME 50.5 SEC (23.5-35.8)
[2019-11-25 15:24] LABS: ANION GAP 7 (5-19); BLOOD UREA NITROGEN 6 mg/dL (7-20); CALCIUM 9.7 mg/dL (8.4-10.2); CARBON DIOXIDE 29 mmol/L (22-30); CHLORIDE 92 mmol/L (98-107); GLUCOSE 112 mg/dL (75-110); POTASSIUM 4.3 mmol/L (3.6-5.0)
--- NOTE | 2019-11-25 16:12 | RADIOLOGY REPORT (SQ) ---
EXAM DESCRIPTION: VENOUS UNILATERAL LOWER IMAGES COMPLETED DATE/TIME: 11/25/2019 3:58 pm REASON FOR STUDY: LLE swelling COMPARISON: 10/10/2019 TECHNIQUE: Dynamic and static barney scale and color images acquired of the left leg venous system. Se lected spectral images acquired with additional compression and augmentation maneuvers. The contralat eral common femoral vein and saphenofemoral junction were also imaged. Images stored on PACS. LIMITATIONS: None. FINDINGS: COMMON FEMORAL: Normal phasicity, compression and augmentation. No visualized echogenic ma terial on barney scale. No defects on color images. FEMORAL: Normal compression and augmentation. No visualized echogenic material on barney scale. No defe cts on color images. POPLITEAL: Normal compression, augmentation. No visualized echogenic material on barney scale. No defec ts on color images. CALF VESSELS: Normal compression, augmentation. No visualized echogenic material on barney scale. No de fects on color images. GSV and SSV: Normal compression, augmentation. No visualized echogenic material on barney scale. No def ects on color images. ANY DEEP VENOUS INSUFFICIENCY: Not evaluated. ANY EVIDENCE OF POPLITEAL CYST: No. OTHER: No other significant finding. CONTRALATERAL COMMON FEMORAL VEIN AND SAPHENOFEMORAL JUNCTION: Normal phasicity, compression and augmentation. No visualized echogenic material on barney scale. No de fects on color images. IMPRESSION: NO EVIDENCE DVT OR SVT IN THE LEFT LEG. COMMENT: This report was called to MARGRET ARANGOP [id number] hours on 11/25/2019. The report was c alled by the office technologist. TECHNICAL DOCUMENTATION: JOB ID: [id number] 2010 [employer]- All Rights Reserved Reading location - IP/workstation name: [email or web address]
[2019-11-25] MEDS ORDERED: NORMAL SALINE 1000 ML 1,000 ML IV ONE (16:40)
--- NOTE | 2019-11-25 18:03 | ER Document Report ---
ED Extremity Problem, Lower - General Chief Complaint: Groin Pain Stated Complaint: LEFT GROIN/LEG PAIN Time Seen by Provider: 11/25/19 14:12 Primary Care Provider: STEPHANIE HANDLEY MD [Primary Care Provider] - Follow up as needed Mode of Arrival: Wheelchair Information source: Patient Notes: 69-year-old female past medical history significant for recent left total knee replacement presents to the emergency room complaining of left groin pain for the past 2 days and left calf pain the past 2 weeks. Patient states she has been getting physical therapy since she had her knee replacement and is unsure if the pain is related to increasing in physical therapy. States she was referred to the emergency room by her primary care physician to rule out a DVT. Patient states she is on Xarelto and has not missed any of her doses. She has no history of DVTs or PEs. She denies any recent travel. No COVID-19 exposure. TRAVEL OUTSIDE OF THE [place] IN LAST 30 DAYS: No - Related Data Allergies/Adverse Reactions: No Known Allergies Allergy (Verified 01/12/19 15:59) Past Medical History - General Information source: Patient - Social History Smoking Status: Never Smoker Chew tobacco use (# tins/day): No Drug Abuse: None Family History: CAD, Malignancy Patient has homicidal ideation: No - Past Medical History Cardiac Medical History: Reports: Hx Atrial Fibrillation, Hx DVT, Hx Hypercholesterolemia, Hx Hypertension, Hx Pulmonary Embolism Pulmonary Medical History: Reports: Hx COPD Neurological Medical History: Reports: Hx Migraine Endocrine Medical History: Reports: Hx Diabetes Mellitus Type 2 - Borderline, diet controlled Renal/ Medical History: Denies: Hx Peritoneal Dialysis GI Medical History: Reports: Hx Gastroesophageal Reflux Disease Musculoskeletal Medical History: Reports Hx Arthritis - I did 9 0 she gets nauseous Rub all over body Psychiatric Medical History: Reports: Hx Depression Past Surgical History: Reports: Hx Abdominal Surgery - They got the 4 feet of int4 ft of intestines removed, colostomy and revised, Hx Appendectomy, Hx Cholecystectomy, Hx Colostomy, Hx Hysterectomy - Immunizations Hx Diphtheria, Pertussis, Tetanus Vaccination: Yes Review of Systems - Review of Systems Constitutional: No symptoms reported Cardiovascular: No symptoms reported Respiratory: No symptoms reported Musculoskeletal: Muscle pain Skin: No symptoms reported Neurological/Psychological: No symptoms reported -: Yes All other systems reviewed and negative Physical Exam - Vital signs Vitals: Temp Pulse Resp BP Pulse Ox 98.7 F 81 18 171/68 H 97 11/25/19 13:03 11/25/19 13:03 11/25/19 13:03 11/25/19 13:03 11/25/19 13:03 - Notes Notes: VITAL SIGNS: Within normal limits. GENERAL: Mild acute distress, non-toxic appearance. HEAD: Normal with no signs of head trauma. EYES: PERRLA, EOMI, conjunctiva normal, no discharge. EARS: Hearing grossly intact. NOSE: Normal. THROAT: Oropharynx is normal. NECK: Normal range of motion, no tenderness, supple, no lymphadenopathy, No adenopathy, no JVD. CHEST: Clear breath sounds bilaterally. No wheezes, rales, or rhonchi. CARDIAC: Regular rate and rhythm. S1 and S2, without murmurs, gallops, or rubs. VASCULAR: No Edema. Peripheral pulses normal and equal in all extremities. ABDOMEN: Normal and soft with no tenderness, no masses or pulsatile masses. No organomegaly. Positive bowel sounds x4. No CVA tenderness noted bilaterally. GASTROINTESTINAL: Bowel sounds normal GENITOURINARY: Normal, No tenderness LYMPATHTIC: No lymphadenopathy noted. MUSCULOSKELETAL: Good range of motion of all major joints. Extremities without clubbing, cyanosis or edema. Nontender to palpation over the left upper thigh. Nontender to palpation to the left calf. There is no swelling noted. Calfs are equal in size. NEUROLOGICAL: Alert and oriented x 3. No focal sensory or strength deficits. Speech normal. Follows commands appropriately. Negative Homans PSYCHIATRIC: Normal Affect, judgement and mood. SKIN: Normal appearance with no rashes or lesions. Course - Re-evaluation Re-evalutation: 11/25/19 18:04 Patient is resting comfortably she is pain-free on exam. She is able to ambulate with the use of walker with mild limping noted to the left leg. Reviewed all test results with patient. Patient is slightly hyponatremic when compared to previous labs her sodium level tends to run in the low 130s. She is asymptomatic at this time. Patient aware of negative studies for DVT. Patient is currently taking muscle relaxers and pain medication which she states alleviates her pain. She was counseled on need to follow-up outpatient with her primary care physician, her pain management doctor as well as orthopedist. Patient was given strict return to the emergency room guidelines. Return for any new or worsening symptoms. All questions were answered. Patient verbalized understanding and agrees with plan of care. 11/25/19 21:39 - Vital Signs Vital signs: Temp Pulse Resp BP Pulse Ox 98.7 F 84 18 185/81 H 97 11/25/19 13:03 11/25/19 18:42 11/25/19 13:03 11/25/19 18:42 11/25/19 18:42 - Laboratory Result Diagrams: 11/25/19 14:50 11/25/19 14:50 Laboratory results interpreted by me: 11/25/19 11/25/19 11/25/19 14:50 14:50 14:50 RDW 15.7 H Lymph % (Auto) 12.0 L Seg Neutrophils % 83.1 H PT 18.2 H APTT 50.5 H Sodium 127.9 L Chloride 92 L BUN 6 L Glucose 112 H - Diagnostic Test Radiology reviewed: Reports reviewed Discharge - Discharge Clinical Impression: Left leg pain Condition: Stable Disposition: HOME, SELF-CARE Instructions: Leg Pain Nonspecific ([facility]) Additional Instructions: Continue with your current home medications. Outpatient follow-up with your pain management, your primary care physician, your orthopedist as scheduled. Return to the emergency room for any new or worsening symptoms. Referrals: STEPHANIE HANDLEY MD [Primary Care Provider] - Follow up as needed
[2019-11-25 18:45] VITALS: BP 185/81
== END 2019-11-25 18:42 | disposition home or self-care (01) ==
LOC: ER 12:57
DX: M79.662 Pain in left lower leg (principal); R10.30 Lower abdominal pain, unspecified; E87.1 Hypo-osmolality and hyponatremia; M79.10 Myalgia, unspecified site; I48.91 Unspecified atrial fibrillation; J44.9 Chronic obstructive pulmonary disease, unspecified; Z79.01 Long term (current) use of anticoagulants; Z96.652 Presence of left artificial knee joint
CPT/HCPCS: 36415; 80048; 85025; 85610; 85730; 93971; 99284

== ENCOUNTER 2020-02-12 16:46 | Inpatient (IN) | payer MEDICARE ==
--- NOTE | 2020-02-12 19:11 | ER Document Report ---
ED Medical Screen (RME) - General Chief Complaint: Altered Mental Status Stated Complaint: ALTERED MENTAL STATUS Time Seen by Provider: 02/12/20 18:56 Primary Care Provider: STEPHANIE HANDLEY MD [Primary Care Provider] - Follow up as needed Mode of Arrival: Medic Information source: Legal Guardian Notes: 69-year-old female presented to ED for altered mental status. There was a note on the EMS run sheet that stated that she was not to be treated or cared for u ntil her daughter got here. Patient has been here over now. I did call her daughter Estephania at home. She states she cannot come in tonight because she has her daughter at home. She states she did not mean that she did not want her mother treated she meant that she did not want her mother discharged disposition the until she spoke with the provider caring for her. She states that she definitely wants her mother care for. She states she has blood clots in her brain. She also has been Seen multiple times. She states she has diabetes. She states is on blood thinners. She states she fell multiple times yesterday the second time she fell backwards into the tub hitting her head. She states she has a history of low sodium multiple times has been sent home after to raise her sodium and then she will go home and ended up coming right back and low sodium again. She states she wants to call before anybody makes any decisions on her. She is the power of sports attorney. Daughter's phone number is on the EMS run sheet. Patient's daughter's name is Estephania Houston. Phone [phone] it is also on the EMS run sheet. This is the number that I called to speak with her daughter I have greeted and performed a rapid initial assessment of this patient. A comprehensive ED assessment and evaluation of the patient, analysis of test results and completion of medical decision making process will be conducted by an additional ED providers. TRAVEL OUTSIDE OF THE [place] IN LAST 30 DAYS: No - Related Data Allergies/Adverse Reactions: No Known Allergies Allergy (Verified 02/12/20 18:11) Past Medical History - Past Medical History Cardiac Medical History: Reports: Hx Atrial Fibrillation, Hx DVT, Hx Hypercholesterolemia, Hx Hypertension, Hx Pulmonary Embolism Pulmonary Medical History: Reports: Hx COPD Neurological Medical History: Reports: Hx Migraine Endocrine Medical History: Reports: Hx Diabetes Mellitus Type 2 - Borderline, diet controlled Renal/ Medical History: Denies: Hx Peritoneal Dialysis GI Medical History: Reports: Hx Gastroesophageal Reflux Disease Musculoskeltal Medical History: Reports Hx Arthritis - I did 9 0 she gets nauseous Rub all over body Psychiatric Medical History: Reports: Hx Depression Past Surgical History: Reports: Hx Abdominal Surgery - They got the 4 feet of int4 ft of intestines removed, colostomy and revised, Hx Appendectomy, Hx Cholecystectomy, Hx Colostomy, Hx Hysterectomy - Immunizations Hx Diphtheria, Pertussis, Tetanus Vaccination: Yes Physical Exam - Vital signs Vitals: Resp Pulse Ox 11 L 97 02/12/20 16:57 02/12/20 16:57 Course - Vital Signs Vital signs: Temp Pulse Resp BP Pulse Ox 97.5 F 73 12 164/79 H 100 02/12/20 17:00 02/12/20 21:33 02/12/20 23:01 02/12/20 23:01 02/12/20 23:01 - Laboratory Result Diagrams: 02/12/20 20:20 02/12/20 20:20 Laboratory results interpreted by me: 02/12/20 02/12/20 02/12/20 20:20 20:20 20:20 RDW 17.3 H APTT 22.3 L Sodium 124.9 L Chloride 89 L BUN 4 L Creatinine 0.46 L Serum Osmolality Alkaline Phosphatase 172 H Urine Osmolality Urine Creatinine Urine Potassium Urine Total Protein 02/12/20 02/12/20 20:20 20:20 RDW APTT Sodium Chloride BUN Creatinine Serum Osmolality 253 L Alkaline Phosphatase Urine Osmolality 185 L Urine Creatinine 9.9 L Urine Potassium 9.9 L Urine Total Protein 14.0 H Doctor's Discharge - Discharge Clinical Impression: Altered mental status, Hyponatremia Referrals: STEPHANIE HANDLEY MD [Primary Care Provider] - Follow up as needed
--- NOTE | 2020-02-12 19:42 | RADIOLOGY REPORT (SQ) ---
EXAM DESCRIPTION: CT HEAD WITHOUT IMAGES COMPLETED DATE/TIME: 02/12/2020 7:21 pm REASON FOR STUDY: Multiple falls on blood thinners COMPARISON: CT head 11/11/2019 TECHNIQUE: Axial images acquired through the brain without intravenous contrast. Images reviewed wi th bone, brain and subdural windows. Images stored on PACS. All CT scanners at this facility use dose modulation, iterative reconstruction, and/or weight based d osing when appropriate to reduce radiation dose to as low as reasonably achievable (ALARA). [facility]: Dose Right [facility]: CareDose [facility]: Dose Right [facility]: Teradose 4D [facility]: ReviewZAP RADIATION DOSE: CT Rad equipment meets quality standard of care and radiation dose reduction techniq ues were employed. CTDIvol: 53.2 mGy. DLP: 1981 mGy-cm.mGy. LIMITATIONS: None. FINDINGS: VENTRICLES: Prominent. CEREBRUM: No masses. No hemorrhage. No midline shift. Areas of low density in the white matter, ri ght greater than left, most likely due to chronic micro-vascular ischemic change, similar to comparis on. No evidence for acute infarction. CEREBELLUM: No masses. No hemorrhage. No alteration of density. No evidence for acute infarction. EXTRAAXIAL SPACES: Age-related involutional change. No fluid collections. No masses. ORBITS AND GLOBE: No intra- or extraconal masses. Normal contour of globe without masses. CALVARIUM: No fracture. PARANASAL SINUSES: No fluid or mucosal thickening. SOFT TISSUES: No mass or hematoma. OTHER: No other significant finding. IMPRESSION: No acute intracranial hemorrhage, mass effect/ midline shift, or new large vessel territ ory hypodensity. Background of chronic microvascular ischemic and age-related involutional changes. EVIDENCE OF ACUTE STROKE: NO. TECHNICAL DOCUMENTATION: JOB ID: [id number] Quality ID # [id number]: Final reports with documentation of one or more dose reduction techniques (e.g., Au tomated exposure control, adjustment of the mA and/or kV according to patient size, use of iterative reconstruction technique) 2010 [employer]- All Rights Reserved Reading location - IP/workstation name: [email or web address]
--- NOTE | 2020-02-12 19:48 | RADIOLOGY REPORT (SQ) ---
EXAM DESCRIPTION: CHEST 2 VIEWS IMAGES COMPLETED DATE/TIME: 02/12/2020 7:31 pm REASON FOR STUDY: Multiple falls on blood thinners COMPARISON: Chest radiograph 11/11/2019 TECHNIQUE: Frontal and lateral radiographic views of the chest acquired. NUMBER OF VIEWS: Two view. LIMITATIONS: None. FINDINGS: LUNGS AND PLEURA: No opacities, masses or pneumothorax. No pleural effusion. MEDIASTINUM AND HILAR STRUCTURES: No masses or contour abnormalities. HEART AND VASCULAR STRUCTURES: Heart normal size. No evidence for failure. BONES: No acute findings. HARDWARE: None in the chest. OTHER: No other significant finding. IMPRESSION: NO SIGNIFICANT RADIOGRAPHIC FINDING IN THE CHEST. TECHNICAL DOCUMENTATION: JOB ID: [id number] 2010 [employer]- All Rights Reserved Reading location - IP/workstation name: [email or web address]
--- NOTE | 2020-02-12 20:16 | EKG REPORT ---
SEVERITY:- NORMAL ECG - SINUS RHYTHM : Confirmed by: Francis Caldwell MD 12-Feb-2020 20:15:16
[2020-02-12 20:41] LABS: ABSOLUTE BASOPHILS # (AUTO) 0.1 10^3/uL (0.0-0.2); ABSOLUTE EOSINOPHILS # (AUTO) 0.1 10^3/uL (0.0-0.6); ABSOLUTE LYMPHOCYTES (AUTO) 1.9 10^3/uL (0.5-4.7); ABSOLUTE MONOCYTES (AUTO) 0.4 10^3/uL (0.1-1.4); ABSOLUTE NEUT (AUTO) 5.5 10^3/uL (1.7-8.2); BASOPHILS % (AUTO) 0.9 % (0-2); EOSINOPHILS % (AUTO) 0.9 % (0-6); HEMATOCRIT 40.8 % (36.0-47.0); HEMOGLOBIN 14.2 g/dL (12.0-15.5); LYMPHOCYTES % (AUTO) 24.1 % (13-45); MEAN CORPUSCULAR HEMOGLOBIN 29.4 pg (27.0-33.4); MEAN CORPUSCULAR HGB CONC 34.9 g/dL (32.0-36.0); MEAN CORPUSCULAR VOLUME 84 fl (80-97); RED BLOOD COUNT 4.84 10^6/uL (3.72-5.28); RED CELL DISTRIBUTION WIDTH 17.3 % (11.5-14.0); SEGMENTED NEUTROPHILS % (AUTO) 69.1 % (42-78); TOTAL CELLS COUNTED % (AUTO) 100 %
[2020-02-12 20:45] LABS: APPEARANCE,URINE CLEAR; BILIRUBIN,URINE NEGATIVE (NEGATIVE); COLOR,URINE COLORLESS; GLUCOSE, URINE NEGATIVE (NEGATIVE); KETONES,URINE NEGATIVE (NEGATIVE); LEUKOCYTE ESTERASE,URINE NEGATIVE (NEGATIVE); NITRITE,URINE NEGATIVE (NEGATIVE); PROTEIN,URINE NEGATIVE (NEGATIVE); URINE SPECIFIC GRAVITY 1.003; UROBILINOGEN,URINE NEGATIVE mg/dL (<2.0)
[2020-02-12 20:56] LABS: INTERNATIONAL RATION (INR) 0.93; PARTIAL THROMBOPLASTIN TIME 22.3 SEC (23.5-35.8); PROTHROMBIN TIME 12.7 SEC (11.4-15.4)
[2020-02-12 21:06] LABS: ALBUMIN 4.4 g/dL (3.5-5.0); ALKALINE PHOSPHATASE 172 U/L (38-126); ANION GAP 10 (5-19); ASPARTATE AMINO TRANSFERASE 21 U/L (14-36); BILIRUBIN,DIRECT 0.3 mg/dL (0.0-0.4); BILIRUBIN,TOTAL 0.4 mg/dL (0.2-1.3); BLOOD UREA NITROGEN 4 mg/dL (7-20); CALCIUM 9.7 mg/dL (8.4-10.2); CARBON DIOXIDE 26 mmol/L (22-30); CHLORIDE 89 mmol/L (98-107); GLUCOSE 108 mg/dL (75-110); PHOSPHORUS 3.5 mg/dL (2.5-4.5); POTASSIUM 4.2 mmol/L (3.6-5.0); TOTAL PROTEIN 7.9 g/dL (6.3-8.2)
[2020-02-12 21:15] LABS: PLATELET COUNT 338 10^3/uL (150-450)
[2020-02-12] MEDS ORDERED: NALOXONE HCL INJ/PF 0.4 MG/1 ML SDV IV ONE (21:58)
[2020-02-12 22:00] LABS: URINE AMPHETAMINES SCREEN NEGATIVE; URINE BARBITURATES SCREEN NEGATIVE; URINE BENZODIAZEPINES SCREEN NEGATIVE; URINE COCAINE SCREEN NEGATIVE; URINE MARIJUANA (THC) SCREEN NEGATIVE; URINE METHADONE SCREEN NEGATIVE; URINE PHENCYCLIDINE SCREEN NEGATIVE
[2020-02-12 22:03] LABS: URINE CREATININE 9.9 mg/dL (15-278)
--- NOTE | 2020-02-12 23:44 | ER Document Report ---
ED General - General Chief Complaint: Altered Mental Status Stated Complaint: ALTERED MENTAL STATUS Time Seen by Provider: 02/12/20 18:56 Primary Care Provider: STEPHANIE HANDLEY MD [Primary Care Provider] - Follow up as needed Mode of Arrival: Medic Notes: 69-year-old female history of MS, hypertension, hyperlipidemia, A. fib on Xarelto, DVT/PE/thromboembolic strokes, recurrent hyponatremia unknown etiology presents with gait instability for past approximately 4 days. Daughter says the patient has been suffering this intermittently for the past several months but this episode has been worse for the past few days where patient has had several falls and also has intermittently seemed to be confused and had trouble speaking with slurred speech. Daughter says that patient frequently gets this way when she has had low sodium but also concern for stroke with new worsening episodes of altered mental status. Patient complained to daughter about pain in front of neck previously, was not able to give me history on my exam. I attempted to obtain history from patient but she was obtunded and unable to respond to questions. History limited by altered mental status. Has been seeing neurologist but unknown work-up thus far, has been on ocrelizumab for MS. TRAVEL OUTSIDE OF THE [place] IN LAST 30 DAYS: No - Related Data Allergies/Adverse Reactions: No Known Allergies Allergy (Verified 02/12/20 18:11) Past Medical History - General Information source: Relative, Legal Guardian, [facility] Records - Social History Smoking Status: Unknown if Ever Smoked Family History: CAD, Malignancy Patient has homicidal ideation: No - Past Medical History Cardiac Medical History: Reports: Hx Atrial Fibrillation, Hx DVT, Hx Hyperch olesterolemia, Hx Hypertension, Hx Pulmonary Embolism Pulmonary Medical History: Reports: Hx COPD Neurological Medical History: Reports: Hx Migraine Endocrine Medical History: Reports: Hx Diabetes Mellitus Type 2 - Borderline, diet controlled Renal/ Medical History: Denies: Hx Peritoneal Dialysis GI Medical History: Reports: Hx Gastroesophageal Reflux Disease Musculoskeletal Medical History: Reports Hx Arthritis - I did 9 0 she gets nauseous Rub all over body Psychiatric Medical History: Reports: Hx Depression Past Surgical History: Reports: Hx Abdominal Surgery - They got the 4 feet of int4 ft of intestines removed, colostomy and revised, Hx Appendectomy, Hx Cholecystectomy, Hx Colostomy, Hx Hysterectomy - Immunizations Hx Diphtheria, Pertussis, Tetanus Vaccination: Yes Review of Systems - Review of Systems -: Yes ROS unobtainable due to patient's medical condition - ams Physical Exam - Vital signs Vitals: Resp Pulse Ox 11 L 97 02/12/20 16:57 02/12/20 16:57 - Notes Notes: PHYSICAL EXAMINATION: GENERAL: Chronically ill-appearing somnolent elderly woman lying in stretcher in no acute distress HEAD: Atraumatic, normocephalic. EYES: Pupils equal round and approximately 2 mm bilaterally, normal conjunctiva ENT: nares patent, moist mucous membranes. NECK: Normal range of motion, supple without lymphadenopathy, no bruits LUNGS: Breath sounds clear to auscultation bilaterally and equal. No wheezes rales or rhonchi. mildly bradypneic with normal respiratory effort HEART: Regular rate and rhythm without murmurs ABDOMEN: Soft, nontender, no guarding, no masses, no CVAT EXTREMITIES: Normal range of motion, no pitting or edema. No cyanosis. Bilateral surgical incisions over knees well-healed without tenderness or signs of infection NEUROLOGICAL: Awake, somnolent, responsive to painful stimuli, moves all extremities spontaneously when aroused, 5 out of 5 strength in distal extremities assessed by electric truck driver but patient not compliant with full neurologic exam, no facial droop, no nystagmus, pupils equal round and reactive SKIN: Warm, Dry, normal turgor, no rashes or lesions noted. Course - Re-evaluation Re-evalutation: 02/12/20 23:44 Patient with intermittent episodes of altered mental status, lethargy, slurred speech, gait instability over the last several months but worse over the past few days. Patient currently obtunded, unable to give history. No signs of meningitis, patient previously complained to daughter of anterior neck pain but no posterior neck pain or rigidity, no fevers recently, and symptoms have been of too long duration. No bleed on CT. possibly secondary to hyponatremia or other electrolyte abnormalities, TIA/stroke, intoxication delirium, UTI, postconcussive syndrome. Patient outside of window for any stroke interventions upon arrival. Gave trial of Narcan as patient's pupils are constricted and mild bradypnea and record of opioid prescriptions as per EMR which did not produce any effect. Patient mildly tachypneic but protecting airway and oxygenating and ventilating sufficiently, no indication for airway intervention at this time. Patient's vital signs have been stable throughout ED evaluation and treatment. Patient found to hyperosmolar likely euvolemic hyponatremia. Patient requires normalization of sodium as this is surely contributing to patient's altered mental status and instability, though patient's current presentation is likely multifactorial. Obtain CTA head and neck for TIA work-up, will need rehab and social work evaluation prior to discharge once her status has improved. 02/12/20 23:[address] Peguero who states he will come to evaluate patient. 02/13/20 01:[address] Peguero who has accepted patient to [facility]. Patient exam remains unchanged. Spoke to patient's daughter for 21 minutes regarding patient's care. - Vital Signs Vital signs: Temp Pulse Resp BP Pulse Ox 97.5 F 73 12 164/79 H 100 02/12/20 17:00 02/12/20 21:33 02/12/20 23:01 02/12/20 23:01 02/12/20 23:01 - Laboratory Result Diagrams: 02/12/20 20:20 02/12/20 20:20 Laboratory results interpreted by me: 02/12/20 02/12/20 02/12/20 20:20 20:20 20:20 RDW 17.3 H APTT 22.3 L Sodium 124.9 L Chloride 89 L BUN 4 L Creatinine 0.46 L Serum Osmolality Alkaline Phosphatase 172 H Urine Osmolality Urine Creatinine Urine Potassium Urine Total Protein 02/12/20 02/12/20 20:20 20:20 RDW APTT Sodium Chloride BUN Creatinine Serum Osmolality 253 L Alkaline Phosphatase Urine Osmolality 185 L Urine Creatinine 9.9 L Urine Potassium 9.9 L Urine Total Protein 14.0 H - EKG Interpretation by Me Additional EKG results interpreted by me: 02/13/20 01:03 Heart rate 75, sinus rhythm, no significant ST elevations or depressions, no significant T wave abnormalities, QTc 434 Discharge - Discharge Clinical Impression: Hyponatremia Altered mental status Qualifiers: Altered mental status type: unspecified Qualified Code(s): R41.82 - Altered mental status, unspecified Disposition: ADMITTED INPATIENT Admitting Provider: Marielena Unit Admitted: [facility] Referrals: STEPHANIE HANDLEY MD [Primary Care Provider] - Follow up as needed
[2020-02-13] MEDS ORDERED: ACETAMINOPHEN 650 MG SUPP.RECT PR PRN (01:13)
[2020-02-13] MEDS ORDERED: HYDRALAZINE HCL INJ/PF 20 MG/1 ML SDV IV PRN (01:34)
--- NOTE | 2020-02-13 01:53 | PDOC H&P ---
History of Present Illness Admission Date/PCP: 02/13/20 01:17 STEPHANIE HANDLEY MD Patient complains of: Frequent falls, altered mental status History of Present Illness: History was obtained from her daughter via phone GRECIA COBOS is a 69 year old female with a history of A. fib on Xarelto, DVT, PE, MS, COPD, hyperlipidemia, hypertension and TIA who was brought in by EMS after she fell down in the bathtub and was found to be altered from her baseline. Her daughter reports that her general functional status has been progressively in decline for the past 4 months and has been having issues with stability when she stands up and gait abnormalities. She has had recurrent episodes of change in her mental status but today's episode was prolonged. She reports that she had multiple falls in the past 4 months. The daughter attributes some of this following down episodes to low blood sugar as the patient had borderline blood sugars in the past during the incidents. Today's episode of change in her mental status with more severe than her usual and she was not able to know her granddaughter. Her daughter also reports that she has been admitted to the hospital multiple times in the past due to low sodium levels. She had a similar episode of fall a day ago where she was found by her neighbor lying on the floor. Patient lives with her daughter and at baseline uses a roller walker to move. According to her daughter, she has been taking h as been taking all her medications. The daughter has not noticed any abnormal body movements or seizure-like activities. She has not spiked fever at home recently and the daughter does not think she has had contact with sick patient recently. Past Medical History Cardiac Medical History: Reports: Atrial Fibrillation, DVT, Hyperlipidema, Hypertension, Pulmonary Embolism Pulmonary Medical History: Reports: Chronic Obstructive Pulmonary Disease (COPD) Neurological Medical History: Reports: Migraine Endocrine Medical History: Reports: Diabetes Mellitus Type 2 - Borderline, diet controlled GI Medical History: Reports: Gastroesophageal Reflux Disease Musculoskeltal Medical History: Reports: Arthritis - I did 9 0 she gets nauseous Rub all over body Psychiatric Medical History: Reports: Depression Past Surgical History Past Surgical History: Reports: Appendectomy, Cholecystectomy, Colostomy, Hysterectomy Social History Information Source: Legal Guardian Lives with: Family Smoking Status: Unknown if Ever Smoked Frequency of Alcohol Use: None Hx Recreational Drug Use: No Drugs: None - Advance Directive Resuscitation Status: Full Code Family History Family History: CAD, Malignancy Parental Family History Reviewed: Yes Children Family History Reviewed: Yes Sibling(s) Family History Reviewed.: Yes Medication/Allergy Home Medications: Budesonide/Formoterol Fumarate [Symbicort HFA 160-4.5 mcg Inhaler 6 gm] 2 puff IH Q12 11/11/19 Diclofenac Sodium 1 gm TOP BIDP PRN 11/11/19 Furosemide [Lasix 20 mg Tablet] 20 mg PO DAILY 11/11/19 Omeprazole 40 mg PO DAILY 11/11/19 Oxycodone HCl/Acetaminophen [Percocet 5-325 mg Tablet] 1 tab PO BIDP PRN 11/11/19 Potassium Chloride [Klor-Con 10 Meq Tablet ER] 10 meq PO DAILY 11/11/19 Pregabalin [Lyrica] 200 mg PO TID 11/11/19 Rivaroxaban [Xarelto] 20 mg PO DAILY 11/11/19 Fluoxetine HCl [Prozac 20 mg Capsule] 20 mg PO DAILY capsule 11/12/19 Levothyroxine Sodium [Synthroid 0.05 mg Tablet] 0.05 mg PO Q6AM tablet 11/12/19 Losartan Potassium [Cozaar 25 mg Tablet] 25 mg PO DAILY tablet 11/12/19 Allergies/Adverse Reactions: No Known Allergies Allergy (Verified 02/12/20 18:11) Review of Systems ROS unobtainable: Due to mental status Physical Exam Vital Signs: Temp Pulse Resp BP Pulse Ox 97.5 F 73 12 164/79 H 100 02/12/20 17:00 02/12/20 21:33 02/12/20 23:01 02/12/20 23:01 02/12/20 23:01 Intake & Output 02/11/20 02/12/20 02/13/20 06:59 06:59 06:59 Weight 104.326 kg Additional comments: GENERAL APPEARANCE: Patient is lethargic and sleepy but can be aroused easily. Able to follow commands but oriented to self only HEENT: Normocephalic and atraumatic. No scleral icterus. Dry buccal mucosa NECK: Supple. No evidence of thyroid enlargement. No lymphadenopathy or tenderness. No JVD. No carotid bruit appreciated. CHEST: Symmetric. Nontender to palpation. LUNGS: Breath sounds are equal and clear bilaterally. No wheezes, rhonchi, or rales. HEART: Regular rate and rhythm with normal S1 and S2. No murmurs, gallops, or rubs. ABDOMEN: Full, soft, positive bowel sounds, no direct or rebound tenderness. No organomegaly or mass detected EXTREMITIES: No cyanosis, clubbing. Left leg appears more swollen than right MUSCULOSKELETAL: No deformity, atrophy or swelling noted. Has a scar from knee replacement surgery. NEUROLOGIC: Patient moves all 4 extremities and withdraws from noxious stimuli. Unable to perform full neuro exam due to change her mental status. Results Laboratory Results: 02/12/20 20:20 02/12/20 20:20 02/12/20 02/12/20 02/12/20 20:20 20:20 20:20 WBC 8.0 RBC 4.84 Hgb 14.2 Hct 40.8 MCV 84 MCH 29.4 MCHC 34.9 RDW 17.3 H Plt Count 338 Seg Neutrophils % 69.1 Sodium 124.9 L Potassium 4.2 Chloride 89 L Carbon Dioxide 26 Anion Gap 10 BUN 4 L Creatinine 0.46 L Est GFR ( Amer) > 60 Glucose 108 Serum Osmolality Calcium 9.7 Phosphorus 3.5 Magnesium 2.2 Total Bilirubin 0.4 AST 21 Alkaline Phosphatase 172 H Total Protein 7.9 Albumin 4.4 Lipase 92.4 Urine Color COLORLESS Urine Appearance CLEAR Urine pH 8.0 Ur Specific [place] 1.003 Urine Protein NEGATIVE Urine Glucose (UA) NEGATIVE Urine Ketones NEGATIVE Urine Blood NEGATIVE Urine Nitrite NEGATIVE Ur Leukocyte Esterase NEGATIVE Urine WBC (Auto) 0 Urine RBC (Auto) 0 Urine Osmolality 02/12/20 02/12/20 02/12/20 20:20 20:20 20:20 WBC RBC Hgb Hct MCV MCH MCHC RDW Plt Count Seg Neutrophils % Sodium Potassium Chloride Carbon Dioxide Anion Gap BUN Creatinine Est GFR ( Amer) Glucose Serum Osmolality 253 L Calcium Phosphorus Magnesium Total Bilirubin AST Alkaline Phosphatase Total Protein Albumin Lipase Urine Color Urine Appearance Urine pH Ur Specific [place] Cancelled Urine Protein Urine Glucose (UA) Urine Ketones Urine Blood Urine Nitrite Ur Leukocyte Esterase Urine WBC (Auto) Urine RBC (Auto) Urine Osmolality 185 L 02/12/20 20:20 Creatine Kinase 130 Impressions: Chest X-Ray 02/12/20 19:03 IMPRESSION: NO SIGNIFICANT RADIOGRAPHIC FINDING IN THE CHEST. Head CT 02/12/20 19:04 IMPRESSION: No acute intracranial hemorrhage, mass effect/ midline shift, or new large vessel territory hypodensity. Background of chronic microvascular ischemic and age-related involutional whittaker es. EVIDENCE OF ACUTE STROKE: NO. Assessment and Plan - Diagnosis (1) Altered mental status Qualifiers: Altered mental status type: unspecified Qualified Code(s): R41.82 - Altered mental status, unspecified Is this a current diagnosis for this admission?: Yes Plan: Likely differentials include metabolic encephalopathy from hyponatremia, TIA versus polypharmacy Sodium level was 125 on arrival Patient has been having intermittent confusion and slurred speech for the past week CT head without contrast showed no acute intracranial hemorrhage, mass-effect or midline shift Patient has no leukocytosis, BUN/creatinine at baseline, random blood sugar on arrival 108, UA not remarkable Patient placed on stroke protocol Start her on aspirin and high intensity statin N.p.o. until swallow eval Neurochecks, fall precaution, aspiration precaution PT, OT evaluations after improvement in mentation Consider obtaining echocardiogram in the morning Will cautiously hydrate with normal saline to avoid overcorrection of serum sodium Follow-up with blood culture CTA of head and neck obtained (2) Hyponatremia Is this a current diagnosis for this admission?: Yes Plan: Likely multifactorial including carbamazepine, volume depletion due to poor oral intake versus SIADH Likely contributing to patient's altered mental status Hypotonic (serum osmolality: 153), urine sodium 75 and urine osmolality 185 suggesting possibility of SIADH Hold carbamazepine for now Will hydrate with normal saline at 100 mL/h Closely monitor serum sodium to avoid overcorrection (3) Volume depletion Is this a current diagnosis for this admission?: Yes Plan: Patient appears to have very dry oral mucosa on physical exam Orthostatic vitals could not be done due to altered mental status Will cautiously hydrate (4) Fall Qualifiers: Encounter type: initial encounter Qualified Code(s): W19.XXXA - Unspecified fall, initial encounter Is this a current diagnosis for this admission?: Yes Plan: Patient has had multiple falls in the past 4 months Based on daughter's description looks like loss of balance and gait abnormality rather than syncopal episode Will complete work-up for stroke due to patient having concerning symptoms like spells of dysarthria, confusion PT and OT evaluation after improvement in mental status (5) HTN (hypertension) Is this a current diagnosis for this admission?: Yes Plan: We will hold home medication to allow permissive hypertension Ordered hydralazine as needed for SBP>185 / DBP>110 (6) History of DVT (deep vein thrombosis) Is this a current diagnosis for this admission?: Yes Plan: Continue Xarelto (7) Hx pulmonary embolism Is this a current diagnosis for this admission?: Yes Plan: Currently patient is saturating well and not in respiratory distress Continue Xarelto (8) Hypothyroidism Is this a current diagnosis for this admission?: Yes Plan: May be contributing to hyponatremia Will continue levothyroxine Obtain TSH in the a.m. (9) Multiple sclerosis Is this a current diagnosis for this admission?: Yes Plan: Patient follows up with neurology Has been on ocrelizumab Will give vitamin D supplement (10) Polypharmacy Is this a current diagnosis for this admission?: Yes Plan: Could be contributing to patient's presentation including falls and altered mentation (11) Atrial fibrillation Is this a current diagnosis for this admission?: No Plan: Currently patient is in sinus rhythm Heart rate is well controlled Continue anticoagulation with Xarelto - Time Time Spent with patient: 35 or more minutes Total Critical Time (Minutes): 55 Medications reviewed and adjusted accordingly: Yes Anticipated Discharge Disposition: Home with Home Health Anticipated Discharge Timeframe: within 72 hours - Inpatient Certification Medical Necessity: Significant Comorbidiites Make Outpatient Treatment Too Risky, Need Close Monitoring Due to Risk of Patient Decompensation, Need For IV Fluids, Need For Continuous Telemetry Monitoring, Need for Neurological Checks
[2020-02-13] MEDS: NORMAL SALINE 1000 ML 1,000 ML IV PRN ×2 (02:40→21:44)
[2020-02-13] MEDS ORDERED: ALBUTEROL SULFATE HFA (90 MCG/PUFF) 8 GM MDI IH PRN (02:45)
[2020-02-13] MEDS ORDERED: DEXTROSE 50%-WATER 25 GM/50 ML DISP.SYRIN IV PRN ×2 (03:15)
[2020-02-13] MEDS ORDERED: GLUCAGON,HUMAN RECOMB 1 MG INJ IM PRN (03:15)
[2020-02-13] MEDS ORDERED: DEXTROSE 40% GEL 15 GM TUBE PO PRN ×2 (03:15)
--- NOTE | 2020-02-13 03:45 | RADIOLOGY REPORT (SQ) ---
EXAM: CT Angiography Head and Neck With Intravenous Contrast EXAM DATE/TIME: 02/13/2020 12:40 AM CLINICAL HISTORY: The patient is 69 years old and is Female; trauma anticoagulation neck pain TECHNIQUE: Axial computed tomographic angiography images of the head and neck with intravenous contrast. Measurements of carotid stenosis were determined utilizing NASCET criteria. Sagittal and coronal reformatted images were created and reviewed. This CT exam was performed using one or more of the following dose reduction techniques: automated exposure control, adjustment of the mA and/or kV according to patient size, and/or use of iterative reconstruction technique. MIP reconstructed images were created and reviewed. COMPARISON: CT brain from 02/12/2020, MRA brain from 01/09/2019 FINDINGS: HEAD: RIGHT ANTERIOR CEREBRAL ARTERY: No occlusion or significant stenosis. No aneurysm. RIGHT MIDDLE CEREBRAL ARTERY: There is occlusion of the right MCA at the distal aspect of the M1 segment. This is chronic, as a similar appearance is noted on the gradient echo sequence from the prior MRI. RIGHT POSTERIOR CEREBRAL ARTERY: No occlusion or significant stenosis. No aneurysm. LEFT ANTERIOR CEREBRAL ARTERY: No occlusion or significant stenosis. No aneurysm. LEFT MIDDLE CEREBRAL ARTERY: No significant stenosis. No occlusion. LEFT POSTERIOR CEREBRAL ARTERY: No occlusion or significant stenosis. No aneurysm. BASILAR ARTERY: No occlusion or significant stenosis. No aneurysm. NECK: RIGHT COMMON CAROTID ARTERY: No significant stenosis. No dissection or occlusion. RIGHT INTERNAL CAROTID ARTERY: Areas of mild stenosis and calcification noted in the right internal carotid artery at the cavernous segment. Otherwise, no occlusion or significant stenosis. No aneurysm. No dissection. RIGHT EXTERNAL CAROTID ARTERY: Unremarkable. No occlusion. RIGHT VERTEBRAL ARTERY: No significant stenosis. No dissection or occlusion. LEFT COMMON CAROTID ARTERY: No significant stenosis. No dissection or occlusion. LEFT INTERNAL CAROTID ARTERY: Areas of mild stenosis and calcification noted in the left internal carotid artery at the cavernous segment. Otherwise, no occlusion or significant stenosis. No aneurysm. No dissection. LEFT EXTERNAL CAROTID ARTERY: Unremarkable. No occlusion. LEFT VERTEBRAL ARTERY: No significant stenosis. No dissection or occlusion. LUNG APICES: Mild dependent atelectasis in the upper lungs HEAD and NECK: BONES/JOINTS: No acute fracture. No dislocation. OTHER: The exam was not optimized for evaluation of the brain parenchyma. However, areas of encephalomalacia are noted within the right MCA territory. CAROTID STENOSIS REFERENCE USING NASCET CRITERIA: % ICA stenosis = (1 - narrowest ICA diameter/diameter of distal cervical ICA) x 100. Mild - <50% stenosis. Moderate - 50-69% stenosis. Severe - 70-94% stenosis. Near occlusion - 95-99% stenosis. Occluded - 100% stenosis. IMPRESSION: 1. No acute findings visualized. No dissection. 2. 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
[2020-02-13] MEDS: LEVOTHYROXINE SODIUM 0.05 MG TABLET PO SCH (05:18)
[2020-02-13 06:45] LABS: ABSOLUTE EOSINOPHILS # (AUTO) 0.1 10^3/uL (0.0-0.6); ABSOLUTE LYMPHOCYTES (AUTO) 1.3 10^3/uL (0.5-4.7); ABSOLUTE MONOCYTES (AUTO) 0.5 10^3/uL (0.1-1.4); ABSOLUTE NEUT (AUTO) 5.3 10^3/uL (1.7-8.2); BASOPHILS % (AUTO) 0.4 % (0-2); HEMOGLOBIN 13.8 g/dL (12.0-15.5); LYMPHOCYTES % (AUTO) 18.5 % (13-45); MEAN CORPUSCULAR HEMOGLOBIN 29.4 pg (27.0-33.4); MEAN CORPUSCULAR HGB CONC 34.4 g/dL (32.0-36.0); MEAN CORPUSCULAR VOLUME 85 fl (80-97); MONOCYTES % (AUTO) 6.6 % (3-13); PLATELET COUNT 360 10^3/uL (150-450); RED BLOOD COUNT 4.69 10^6/uL (3.72-5.28); RED CELL DISTRIBUTION WIDTH 17.3 % (11.5-14.0); SEGMENTED NEUTROPHILS % (AUTO) 73.5 % (42-78); TOTAL CELLS COUNTED % (AUTO) 100 %; WHITE BLOOD COUNT 7.3 10^3/uL (4.0-10.5)
[2020-02-13 07:16] LABS: ANION GAP 11 (5-19); BLOOD UREA NITROGEN 3 mg/dL (7-20); CALCIUM 10.1 mg/dL (8.4-10.2); CARBON DIOXIDE 22 mmol/L (22-30); CHLORIDE 95 mmol/L (98-107); GLUCOSE 114 mg/dL (75-110); POTASSIUM 4.1 mmol/L (3.6-5.0)
[2020-02-13 09:14] LABS: CHOLESTEROL 251.03 mg/dL (0-200); TRIGLYCERIDES 103 mg/dL (<150)
[2020-02-13 09:24] LABS: DIRECT LDL 145 mg/dL (<100)
[2020-02-13] MEDS ORDERED: RIVAROXABAN 10 MG TABLET PO SCH (10:00)
[2020-02-13] MEDS: FAMOTIDINE 20 MG TABLET PO SCH ×2 (10:26→21:41)
[2020-02-13] MEDS: LOSARTAN POTASSIUM 25 MG TABLET PO SCH (10:26)
[2020-02-13] MEDS: TOPIRAMATE 25 MG TABLET PO SCH ×2 (10:26→21:41)
[2020-02-13] MEDS: ASPIRIN 81 MG TABLET, CHEWABLE PO SCH (10:26)
--- NOTE | 2020-02-13 12:57 | Progress Note ---
Provider Note Provider Note: Patient was seen and evaluated by me today. She was admitted for changes in her mental status as per her daughter. Patient provides me with no concerns or complaints. On questioning she denies fever, chills, lightheadedness, dizziness, chest pain, palpitations, shortness of breath, cough, abdominal pain, nausea vomiting or diarrhea. On admission she was found to be hyponatremic with Serum osmolality 153, urine sodium 75 and urine osmolality 185. She has had multiple previous hospital admissions for hyponatremia. Currently treating with gentle fluids. Plan to recheck sodium at 1400. If sodium continues to be low, suspect secondary to SIADH, will restrict fluids. Plan to have patient seen by PT and OT. Patient's daughter expressed to admitting provider that she does not believe her family has the ability to care for their mother. Will investigate disposition to SNF. On physical exam patient does express left upper extremity weakness, though this is minimal.
[2020-02-13] MEDS ORDERED: ACETAMINOPHEN 325 MG TABLET PO PRN ×2 (14:48→16:40)
[2020-02-13] MEDS ORDERED: BACLOFEN 10 MG TABLET PO PRN (16:41)
[2020-02-13] MEDS: RIVAROXABAN 10 MG TABLET PO SCH (17:11)
[2020-02-13] MEDS: LORAZEPAM 0.5 MG TABLET PO PRN (18:46)
[2020-02-13] MEDS: ATORVASTATIN CALCIUM 40 MG TABLET PO SCH (21:41)
[2020-02-14] MEDS: LEVOTHYROXINE SODIUM 0.05 MG TABLET PO SCH (05:20)
[2020-02-14 06:00] LABS: ANION GAP 11 (5-19); BLOOD UREA NITROGEN 8 mg/dL (7-20); CALCIUM 10.1 mg/dL (8.4-10.2); CARBON DIOXIDE 20 mmol/L (22-30); CHLORIDE 106 mmol/L (98-107); GLUCOSE 111 mg/dL (75-110); POTASSIUM 4.2 mmol/L (3.6-5.0)
--- NOTE | 2020-02-14 11:00 | PDOC PROGRESS REPORT ---
Subjective Progress Note for:: 02/14/20 Subjective:: Patient resting comfortably. We discussed her carbamazepine. She states that it is for neuropathy in her hands. She denies any other pains and reports good appetite. Reason For Visit: ALTERED MENTAL STATUS,HYPONATREMIA,STROKELIKE SYMP Physical Exam Vital Signs: Temp Pulse Resp BP Pulse Ox 98.3 F 91 16 144/69 H 100 02/14/20 03:38 02/14/20 03:38 02/14/20 03:38 02/14/20 03:38 02/14/20 03:38 Intake & Output 02/13/20 02/14/20 02/15/20 06:59 06:59 06:59 Intake Total 240 1802 Output Total 400 1200 Balance -160 602 Weight 71 kg 89.9 kg General appearance: PRESENT: no acute distress, cooperative, well-developed, well-nourished Respiratory exam: PRESENT: clear to auscultation baljinder, symmetrical, unlabored. ABSENT: prolonged expiratory phas, rales, rhonchi, tachypnea, wheezes Cardiovascular exam: PRESENT: RRR, +S1, +S2. ABSENT: bradycardia, diastolic murmur, irregular rhythm, systolic murmur, tachycardia GI/Abdominal exam: PRESENT: normal bowel sounds, soft. ABSENT: distended, guarding, tenderness Rectal exam: PRESENT: deferred Gentrourinary exam: ABSENT: indwelling catheter Extremities exam: ABSENT: pedal edema Neurological exam: PRESENT: alert, awake, oriented to person, oriented to place, oriented to situation. ABSENT: altered Psychiatric exam: PRESENT: appropriate affect. ABSENT: agitated, anxious Focused psych exam: ABSENT: delusional, paranoid, restlessness Skin exam: PRESENT: dry, normal color, warm. ABSENT: rash Results Laboratory Results: 02/13/20 06:19 02/14/20 05:23 02/13/20 02/14/20 02/14/20 13:50 05:23 05:23 Sodium 129.1 L 136.7 L Potassium 4.2 Chloride 106 Carbon Dioxide 20 L Anion Gap 11 BUN 8 Creatinine 0.50 L Est GFR ( Amer) > 60 Glucose 111 H Calcium 10.1 Ammonia 26.5 TSH 02/14/20 05:23 Sodium Potassium Chloride Carbon Dioxide Anion Gap BUN Creatinine Est GFR ( Amer) Glucose Calcium Ammonia TSH 3.17 02/12/20 02/12/20 20:20 20:20 Creatine Kinase 130 Troponin I < 0.012 Impressions: Chest X-Ray 02/12/20 19:03 IMPRESSION: NO SIGNIFICANT RADIOGRAPHIC FINDING IN THE CHEST. Head CT 02/12/20 19:04 IMPRESSION: No acute intracranial hemorrhage, mass effect/ midline shift, or new large vessel territory hypodensity. Background of chronic microvascular ischemic and age-related involutional changes. EVIDENCE OF ACUTE STROKE: NO. Head CTA 02/12/20 23:27 IMPRESSION: 1. No acute findings visualized. No dissection. 2. 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 Neck CTA 02/12/20 23:27 IMPRESSION: 1. No acute findings visualized. No dissection. 2. 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 Assessment and Plan - Diagnosis (1) Altered mental status Qualifiers: Altered mental status type: disorientation Qualified Code(s): R41.0 - Disorientation, unspecified Is this a current diagnosis for this admission?: Yes Plan: Likely differentials include metabolic encephalopathy from hyponatremia, TIA versus polypharmacy Sodium level was 125 on arrival Patient has been having intermittent confusion and slurred speech for the past week CT head without contrast showed no acute intracranial hemorrhage, mass-effect or midline shift Patient has no leukocytosis, BUN/creatinine at baseline, random blood sugar on arrival 108, UA not remarkable Patient placed on stroke protocol Start her on aspirin and high intensity statin N.p.o. until swallow eval Neurochecks, fall precaution, aspiration precaution PT, OT evaluations after improvement in mentation Consider obtaining echocardiogram in the morning Will cautiously hydrate with normal saline to avoid overcorrection of serum sodium Follow-up with blood culture CTA of head and neck obtained (2) Hyponatremia Is this a current diagnosis for this admission?: Yes Plan: Likely multifactorial including carbamazepine, volume depletion due to poor oral intake versus SIADH Likely contributing to patient's altered mental status Hypotonic (serum osmolality: 153), urine sodium 75 and urine osmolality 185 suggesting possibility of SIADH Hold carbamazepine for now Will hydrate with normal saline at 100 mL/h Closely monitor serum sodium to avoid overcorrection (3) Volume depletion Is this a current diagnosis for this admission?: Yes Plan: Patient appears to have very dry oral mucosa on physical exam Orthostatic vitals could not be done due to altered mental status Will cautiously hydrate (4) Fall Qualifiers: Encounter type: initial encounter Qualified Code(s): W19.XXXA - Unspecified fall, initial encounter Is this a current diagnosis for this admission?: Yes Plan: Patient has had multiple falls in the past 4 months Based on daughter's description looks like loss of balance and gait abnormality rather than syncopal episode Will complete work-up for stroke due to patient having concerning symptoms like spells of dysarthria, confusion PT and OT evaluation after improvement in mental status (5) HTN (hypertension) Is this a current diagnosis for this admission?: Yes Plan: We will hold home medication to allow permissive hypertension Ordered hydralazine as needed for SBP>185 / DBP>110 (6) History of DVT (deep vein thrombosis) Is this a current diagnosis for this admission?: Yes Plan: Continue Xarelto (7) Hx pulmonary embolism Is this a current diagnosis for this admission?: Yes Plan: Currently patient is saturating well and not in respiratory distress Continue Xarelto (8) Hypothyroidism Is this a current diagnosis for this admission?: Yes Plan: May be contributing to hyponatremia Will continue levothyroxine Obtain TSH in the a.m. (9) Multiple sclerosis Is this a current diagnosis for this admission?: Yes Plan: Patient follows up with neurology Has been on ocrelizumab Will give vitamin D supplement (10) Polypharmacy Is this a current diagnosis for this admission?: Yes Plan: Could be contributing to patient's presentation including falls and altered mentation (11) Longstanding persistent atrial fibrillation Is this a current diagnosis for this admission?: Yes - Plan Summary Summary: 02/14/2020 Altered mental status most likely due to combination of hyponatremia and medications. Sodium is corrected. We will try and streamline medications. Reviewed PT, OT and speech therapy notes. Recommend supervision at discharge. Outpatient speech therapy also recommended. Multiple sclerosis-follows up with neurology. This could certainly be an occult contributor to current status. Hypertension and atrial fibrillation-we will slowly increase antihypertensives. Otherwise continue current regimen including Xarelto Family worried about ability to safely care for patient at home. Considering placement. - Time Time Spent with patient: 15-24 minutes Medications reviewed and adjusted accordingly: Yes Anticipated Discharge Disposition: Possibly custodial Anticipated Discharge Timeframe: within 72 hours
[2020-02-14] MEDS: ASPIRIN 81 MG TABLET, CHEWABLE PO SCH (13:58)
[2020-02-14] MEDS: LORAZEPAM 0.5 MG TABLET PO PRN ×2 (13:58→22:48)
[2020-02-14] MEDS: CYANOCOBALAMIN (VITAMIN B-12) 1,000 MCG TABLET PO SCH (13:59)
[2020-02-14] MEDS: FAMOTIDINE 20 MG TABLET PO SCH ×2 (13:59→21:30)
[2020-02-14] MEDS: LOSARTAN POTASSIUM 25 MG TABLET PO SCH (13:59)
[2020-02-14] MEDS: TOPIRAMATE 25 MG TABLET PO SCH ×2 (14:46→21:30)
[2020-02-14] MEDS: CARBAMAZEPINE 200 MG TAB.SR.12H PO SCH (17:33)
[2020-02-14] MEDS: RIVAROXABAN 10 MG TABLET PO SCH (17:33)
[2020-02-14] MEDS: ATORVASTATIN CALCIUM 40 MG TABLET PO SCH (21:30)
[2020-02-15] MEDS: CARBAMAZEPINE 200 MG TAB.SR.12H PO SCH ×2 (05:06→19:06)
[2020-02-15] MEDS: LEVOTHYROXINE SODIUM 0.05 MG TABLET PO SCH (05:06)
[2020-02-15 07:46] LABS: ANION GAP 12 (5-19); BLOOD UREA NITROGEN 7 mg/dL (7-20); CALCIUM 10.3 mg/dL (8.4-10.2); CARBON DIOXIDE 23 mmol/L (22-30); CHLORIDE 101 mmol/L (98-107); GLUCOSE 119 mg/dL (75-110); POTASSIUM 3.9 mmol/L (3.6-5.0)
--- NOTE | 2020-02-15 11:22 | PDOC DISCHARGE SUMMARY ---
Impression - Admit/DC Date/PCP Admission Date/Primary Care Provider: 02/13/20 01:17 STEPHANIE HANDLEY MD Discharge Date: 02/15/20 - Discharge Diagnosis (1) Altered mental status Is this a current diagnosis for this admission?: Yes (2) Hyponatremia Is this a current diagnosis for this admission?: Yes (3) Volume depletion Is this a current diagnosis for this admission?: Yes (4) Fall Is this a current diagnosis for this admission?: Yes (5) HTN (hypertension) Is this a current diagnosis for this admission?: Yes (6) History of DVT (deep vein thrombosis) Is this a current diagnosis for this admission?: Yes (7) Hx pulmonary embolism Is this a current diagnosis for this admission?: Yes (8) Hypothyroidism Is this a current diagnosis for this admission?: Yes (9) Multiple sclerosis Is this a current diagnosis for this admission?: Yes (10) Polypharmacy Is this a current diagnosis for this admission?: Yes (11) Longstanding persistent atrial fibrillation Is this a current diagnosis for this admission?: Yes - Assessment Summary: 02/14/2020 Altered mental status most likely due to combination of hyponatremia and medications. Sodium is corrected. We will try and streamline medications. Reviewed PT, OT and speech therapy notes. Recommend supervision at discharge. Outpatient speech therapy also recommended. Multiple sclerosis-follows up with neurology. This could certainly be an occult contributor to current status. Hypertension and atrial fibrillation-we will slowly increase antihypertensives. Otherwise continue current regimen including Xarelto Family worried about ability to safely care for patient at home. Considering placement. 02/15/2020 Patient actually discharged from PT and OT due to current functional level. The plan is to discharge to home. - Additional Information Resuscitation Status: Full Code Discharge Diet: Cardiac Discharge Activity: Activity As Tolerated, Balance Activity w/Rest Referrals: STEPHANIE HANDLEY MD [Primary Care Provider] - 03/05/20 11:00 am Home Medications: Budesonide/Formoterol Fumarate [Symbicort HFA 160-4.5 mcg Inhaler 6 gm] 2 puff IH Q12 11/11/19 Pregabalin [Lyrica] 200 mg PO TID 11/11/19 Rivaroxaban [Xarelto] 20 mg PO DAILY 11/11/19 Levothyroxine Sodium [Synthroid 0.05 mg Tablet] 0.05 mg PO Q6AM tablet 11/12/19 Losartan Potassium [Cozaar 25 mg Tablet] 25 mg PO DAILY tablet 11/12/19 Baclofen [Baclofen 20 mg Tablet] 20 mg PO TID 02/13/20 Carbamazepine [Tegretol Xr 200 mg Tab.sr] 200 mg PO BID 02/13/20 Cyanocobalamin (Vitamin B-12) [Vitamin B12] 2,500 mcg PO DAILY 02/13/20 Desvenlafaxine [Desvenlafaxine ER] 100 mg PO DAILY 02/13/20 Topiramate [Topamax] 25 mg PO BID 02/13/20 Acetaminophen [Tylenol 325 mg Tablet] 975 mg PO Q4HP PRN tablet 02/15/20 Aspirin [Aspirin 81 mg Chewable Tablet] 81 mg PO DAILY tab.chew 02/15/20 Famotidine [Pepcid 20 mg Tablet] 20 mg PO Q12 tablet 02/15/20 Levothyroxine Sodium [Synthroid 0.05 mg Tablet] 0.05 mg PO Q6AM tablet 02/15/20 Losartan Potassium [Cozaar 25 mg Tablet] 25 mg PO DAILY tablet 02/15/20 Rivaroxaban [Xarelto 10 mg Tablet] 20 mg PO WSUPPER tablet 02/15/20 Topiramate [Topamax 25 mg Tablet] 25 mg PO Q12 tablet 02/15/20 History of Present Illiness History of Present Illness: GRECIA COBOS is a 69 year old female with a history of A. fib on Xarelto, DVT, PE, MS, COPD, hyperlipidemia, hypertension and TIA who was brought in by EMS after she fell down in the bathtub and was found to be altered from her baseline. Her daughter reports that her general functional status has been progressively in decline for the past 4 months and has been having issues with stability when she stands up and gait abnormalities. She has had recurrent episodes of change in her mental status but today's episode was prolonged. She reports that she had multiple falls in the past 4 months. The daughter attributes some of this following down episodes to low blood sugar as the patient had borderline blood sugars in the past during the incidents. Today's episode of change in her mental status with more severe than her usual and she was not able to know her granddaughter. Her daughter also reports that she has been admitted to the hospital multiple times in the past due to low sodium levels. She had a similar episode of fall a day ago where she was found by her neighbor lying on the floor. Patient lives with her daughter and at baseline uses a roller walker to move. According to her daughter, she has been taking has been taking all her medications. The daughter has not noticed any abnormal body movements or seizure-like activities. She has not spiked fever at home recently and the daughter does not think she has had contact with sick patient recently. Hospital Course Hospital Course: The patient had an uneventful hospital course. With correction of her serum sodium her altered mental state appeared to resolve. She is on multiple medications as well. Hyponatremia would seem to be the primary cause although a serum sodium of 125 typically will not cause marked confusion. She actually was evaluated by PT and OT and was discharged as her functional level was quite good. Please see PT and OT notes for detail. The patient does have a history of severe depression. There have been some medication changes recently that also may have contributed to her acute change but it is impossible to tell at this time. As she is doing much better and her altered mental status has cleared the patient is stable for discharge. Physical Exam Vital Signs: Temp Pulse Resp BP Pulse Ox 97.9 F 81 16 174/79 H 100 02/15/20 08:21 02/15/20 08:21 02/15/20 08:21 02/15/20 08:21 02/15/20 08:21 Intake & Output 02/14/20 02/15/20 02/16/20 06:59 06:59 06:59 Intake Total 1802 1140 Output Total 1200 Balance 602 1140 Weight 89.9 kg 87.2 kg General appearance: PRESENT: no acute distress Respiratory exam: PRESENT: clear to auscultation baljinder, symmetrical, unlabored. ABSENT: prolonged expiratory phas, rales, rhonchi, tachypnea, wheezes Cardiovascular exam: PRESENT: RRR, +S1, +S2. ABSENT: bradycardia, diastolic murmur, irregular rhythm, systolic murmur, tachycardia GI/Abdominal exam: PRESENT: normal bowel sounds, soft. ABSENT: distended, guarding, tenderness Extremities exam: ABSENT: pedal edema Musculoskeletal exam: PRESENT: ambulatory, normal inspection. ABSENT: deformity, dislocation Neurological exam: PRESENT: alert, awake, oriented to person, oriented to place, oriented to situation, CN II-XII grossly intact. ABSENT: altered Psychiatric exam: PRESENT: appropriate affect. ABSENT: agitated, anxious Focused psych exam: ABSENT: delusional, paranoid, restlessness Results Laboratory Results: WBC 7.3 10^3/uL (4.0-10.5) 02/13/20 06:19 RBC 4.69 10^6/uL (3.72-5.28) 02/13/20 06:19 Hgb 13.8 g/dL (12.0-15.5) 02/13/20 06:19 Hct 40.0 % (36.0-47.0) 02/13/20 06:19 MCV 85 fl (80-97) 02/13/20 06:19 MCH 29.4 pg (27.0-33.4) 02/13/20 06:19 MCHC 34.4 g/dL (32.0-36.0) 02/13/20 06:19 RDW 17.3 % (11.5-14.0) H 02/13/20 06:19 Plt Count 360 10^3/uL (150-450) 02/13/20 06:19 Lymph % (Auto) 18.5 % (13-45) 02/13/20 06:19 [place] % (Auto) 6.6 % (3-13) 02/13/20 06:19 Eos % (Auto) 1.0 % (0-6) 02/13/20 06:19 Baso % (Auto) 0.4 % (0-2) 02/13/20 06:19 Absolute Neuts (auto) 5.3 10^3/uL (1.7-8.2) 02/13/20 06:19 Absolute Lymphs (auto) 1.3 10^3/uL (0.5-4.7) 02/13/20 06:19 Absolute Monos (auto) 0.5 10^3/uL (0.1-1.4) 02/13/20 06:19 Absolute Eos (auto) 0.1 10^3/uL (0.0-0.6) 02/13/20 06:19 Absolute Basos (auto) 0.0 10^3/uL (0.0-0.2) 02/13/20 06:19 Seg Neutrophils % 73.5 % (42-78) 02/13/20 06:19 PT 12.7 SEC (11.4-15.4) 02/12/20 20:20 INR 0.93 02/12/20 20:20 APTT 22.3 SEC (23.5-35.8) L 02/12/20 20:20 Sodium 135.6 mmol/L (137-145) L 02/15/20 06:01 Potassium 3.9 mmol/L (3.6-5.0) 02/15/20 06:01 Chloride 101 mmol/L (98-107) 02/15/20 06:01 Carbon Dioxide 23 mmol/L (22-30) 02/15/20 06:01 Anion Gap 12 (5-19) 02/15/20 06:01 BUN 7 mg/dL (7-20) 02/15/20 06:01 Creatinine 0.51 mg/dL (0.52-1.25) L 02/15/20 06:01 Est GFR ( Amer) > 60 (>60) 02/15/20 06:01 Est GFR (MDRD) Non-Af > 60 (>60) 02/15/20 06:01 Glucose 119 mg/dL (75-110) H 02/15/20 06:01 POC Glucose 121 mg/dL (70-110) H 02/15/20 08:29 Serum Osmolality 253 mOsm/kg (275-301) L 02/12/20 20:20 Calcium 10.3 mg/dL (8.4-10.2) H 02/15/20 06:01 Phosphorus 3.5 mg/dL (2.5-4.5) 02/12/20 20:20 Magnesium 2.2 mg/dL (1.6-2.3) 02/12/20 20:20 Total Bilirubin 0.4 mg/dL (0.2-1.3) 02/12/20 20:20 Direct Bilirubin 0.3 mg/dL (0.0-0.4) 02/12/20 20:20 Neonat Total Bilirubin Not Reportable 02/12/20 20:20 Neonat Direct Bilirubin Not Reportable 02/12/20 20:20 Neonat Indirect Bili Not Reportable 02/12/20 20:20 AST 21 U/L (14-36) 02/12/20 20:20 ALT 14 U/L (<35) 02/12/20 20:20 Alkaline Phosphatase 172 U/L (38-126) H 02/12/20 20:20 Ammonia 26.5 umol/L (9-33) 02/14/20 05:23 Creatine Kinase 130 U/L (30-135) 02/12/20 20:20 Troponin I < 0.012 ng/mL 02/12/20 20:20 Total Protein 7.9 g/dL (6.3-8.2) 02/12/20 20:20 Albumin 4.4 g/dL (3.5-5.0) 02/12/20 20:20 Triglycerides 103 mg/dL (<150) 02/13/20 06:19 Cholesterol 251.03 mg/dL (0-200) H 02/13/20 06:19 LDL Cholesterol Direct 145 mg/dL (<100) H 02/13/20 06:19 VLDL Cholesterol 21.0 mg/dL (10-31) 02/13/20 06:19 HDL Cholesterol 89 mg/dL (>40) 02/13/20 06:19 Lipase 92.4 U/L (23-300) 02/12/20 20:20 TSH 3.17 uIU/mL (0.47-4.68) 02/14/20 05:23 Urine Color COLORLESS 02/12/20 20:20 Urine Appearance CLEAR 02/12/20 20:20 Urine pH 8.0 (5.0-9.0) 02/12/20 20:20 Ur Specific [place] 1.003 02/12/20 20:20 Ur Specific [place] Cancelled 02/12/20 20:20 Urine Protein NEGATIVE mg/dL (NEGATIVE) 02/12/20 20:20 Urine Glucose (UA) NEGATIVE mg/dL (NEGATIVE) 02/12/20 20:20 Urine Ketones NEGATIVE mg/dL (NEGATIVE) 02/12/20 20:20 Urine Blood NEGATIVE (NEGATIVE) 02/12/20 20:20 Urine Nitrite NEGATIVE (NEGATIVE) 02/12/20 20:20 Urine Bilirubin NEGATIVE (NEGATIVE) 02/12/20 20:20 Urine Urobilinogen NEGATIVE mg/dL (<2.0) 02/12/20 20:20 Ur Leukocyte Esterase NEGATIVE (NEGATIVE) 02/12/20 20:20 Urine WBC (Auto) 0 /HPF 02/12/20 20:20 Urine RBC (Auto) 0 /HPF 02/12/20 20:20 Squamous Epi Cells Auto 1 /HPF 02/12/20 20:20 Urine Osmolality 185 mOsm/kg (300-900) L 02/12/20 20:20 Urine Creatinine 9.9 mg/dL (15-278) L 02/12/20 20:20 Urine Sodium 75 mmol/L (30-90) 02/12/20 20:20 Urine Potassium 9.9 mmol/L (22-164) L 02/12/20 20:20 Urine Total Protein 14.0 mg/dL (<12) H 02/12/20 20:20 Urine Ascorbic Acid NEGATIVE (NEGATIVE) 02/12/20 20:20 Urine Opiates Screen NEGATIVE 02/12/20 20:20 Urine Methadone Screen NEGATIVE 02/12/20 20:20 Ur Barbiturates Screen NEGATIVE 02/12/20 20:20 Ur Phencyclidine Scrn NEGATIVE 02/12/20 20:20 Ur Amphetamines Screen NEGATIVE 02/12/20 20:20 U Benzodiazepines Scrn NEGATIVE 02/12/20 20:20 Urine Cocaine Screen NEGATIVE 02/12/20 20:20 U Marijuana (THC) Screen NEGATIVE 02/12/20 20:20 Serum Alcohol < 10 mg/dL (NONE DETECTED) 02/12/20 20:20 COVID-19 Source See comment 02/13/20 10:30 COVID-19 (TELLY) Not Detected (Not Detect) 02/13/20 10:30 02/12/20 20:20 Troponin I < 0.012 Impressions: Chest X-Ray 02/12/20 19:03 IMPRESSION: NO SIGNIFICANT RADIOGRAPHIC FINDING IN THE CHEST. Head CT 02/12/20 19:04 IMPRESSION: No acute intracranial hemorrhage, mass effect/ midline shift, or new large vessel territory hypodensity. Background of chronic microvascular ischemic and age-related involutional changes. EVIDENCE OF ACUTE STROKE: NO. Head CTA 02/12/20 23:27 IMPRESSION: 1. No acute findings visualized. No dissection. 2. 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 Neck CTA 02/12/20 23:27 IMPRESSION: 1. No acute findings visualized. No dissection. 2. 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 Plan Health Concerns: Multiple medications for severe depression. Family reports poor balance but she did well with physical and Occupational Therapy. Plan of Treatment: I did ask her to hold her furosemide until she sees her primary care provider. In addition I suggested trying twice daily dosing of her 200 mg of Lyrica instead of 3 times. Desvenlafaxine and venlafaxine were both listed on medication list. Clarification needs to be obtained. I told her to continue the desvenlafaxine at this time as taking both could easily result in adverse effects including gait instability. Goals: Prevention of episodes of confusion. Maintain stable electrolytes. Streamline medication profile if possible. Time Spent: Greater than 30 Minutes Stroke Is this a Stroke Patient?: No Acute Heart Failure Is this a Heart Failure Patient?: No
[2020-02-15] MEDS: LOSARTAN POTASSIUM 25 MG TABLET PO SCH (12:57)
[2020-02-15] MEDS: FAMOTIDINE 20 MG TABLET PO SCH ×2 (12:57→22:43)
[2020-02-15] MEDS: ASPIRIN 81 MG TABLET, CHEWABLE PO SCH (12:57)
[2020-02-15] MEDS: TOPIRAMATE 25 MG TABLET PO SCH ×2 (12:57→22:43)
[2020-02-15] MEDS: CYANOCOBALAMIN (VITAMIN B-12) 1,000 MCG TABLET PO SCH (12:57)
[2020-02-15] MEDS: LORAZEPAM 0.5 MG TABLET PO PRN ×2 (13:06→19:06)
--- NOTE | 2020-02-15 18:36 | CDI QUERY ---
CDI Query CDI Review: We are seeking further clarification of documentation to reflect the severity of illness of your patient. Noted in the H&P and Progress Notes: Altered mental status Qualifiers: Altered mental status type: disorientation Qualified Code(s): R41.0 - Disorientation, unspecified Is this a current diagnosis for this admission?: Yes Plan: Likely differentials include metabolic encephalopathy from hyponatremia, TIA versus polypharmacy Based on your medical judgement, can you further clarify in the Progress Notes and in the Discharge Summary if the Altered Mental Status can be further specified: Metabolic Encephalopathy Toxic Encephalopathy Altered mental status without encephalopathy Other condition (please specify) Unable to determine Thank you for your consideration. KISHORE Cervantes RN Clinical [employer] Physician Advisor
[2020-02-15] MEDS ORDERED: VENLAFAXINE HCL 75 MG CAP.SR.24H PO ONE (19:00)
[2020-02-15] MEDS: RIVAROXABAN 10 MG TABLET PO SCH (19:06)
--- NOTE | 2020-02-15 19:47 | Progress Note ---
Provider Note Provider Note: 02/15/2020 Discharge planning made me aware that the family is appealing her discharge. They are contacting the insurance company as they feel she would benefit from custodial. There was also some confusion on her medications. Mana, her nurse, worked with her daughter and clarified that the patient actually takes venlafaxine extended release 225 mg daily and is no longer on desvenlafaxine. In addition she evidently takes fluoxetine. She was on it previously and then it was held. Per the nurse family reports that was restarted several weeks ago. We will continue to follow closely. Await results of the discharge appeal. If approved by her insurance we will transfer to a custodial facility.
[2020-02-15] MEDS: PREGABALIN 100 MG CAPSULE PO SCH (22:42)
[2020-02-15] MEDS: ATORVASTATIN CALCIUM 40 MG TABLET PO SCH (22:42)
[2020-02-16] MEDS: PREGABALIN 100 MG CAPSULE PO SCH ×2 (05:20→13:18)
[2020-02-16] MEDS: CARBAMAZEPINE 200 MG TAB.SR.12H PO SCH (05:21)
[2020-02-16] MEDS: LEVOTHYROXINE SODIUM 0.05 MG TABLET PO SCH (05:21)
--- NOTE | 2020-02-16 09:04 | PDOC PROGRESS REPORT ---
Subjective Progress Note for:: 02/16/20 Subjective:: Patient is resting in bed. She is sad. She feels abandoned to some degree because she is still in the hospital when we had planned for discharged home yesterday. We had a long talk about her balance and her falls and why her daughter felt it would be best to have ongoing skilled rehab. She immediately reported that she feels strongly that her MS is the cause. She has done very well with Solu-Medrol infusions in the past. Reason For Visit: ALTERED MENTAL STATUS,HYPONATREMIA,STROKELIKE SYMP Physical Exam Vital Signs: Temp Pulse Resp BP Pulse Ox 98.0 F 96 16 135/81 H 100 02/16/20 08:23 02/16/20 07:00 02/16/20 07:00 02/16/20 07:00 02/16/20 07:00 Intake & Output 02/15/20 02/16/20 02/17/20 06:59 06:59 06:59 Intake Total 1140 690 Balance 1140 690 Weight 87.2 kg 87.2 kg General appearance: PRESENT: cooperative, mild distress, well-developed Head exam: PRESENT: atraumatic, normocephalic Ear exam: PRESENT: normal external ear exam. ABSENT: bleeding, drainage Mouth exam: PRESENT: moist, tongue midline Respiratory exam: PRESENT: clear to auscultation baljinder, symmetrical, unlabored. ABSENT: prolonged expiratory phas, rales, rhonchi, tachypnea, wheezes Cardiovascular exam: PRESENT: RRR, +S1, +S2. ABSENT: bradycardia, diastolic murmur, irregular rhythm, systolic murmur, tachycardia GI/Abdominal exam: PRESENT: normal bowel sounds, soft. ABSENT: distended, guarding, tenderness Rectal exam: PRESENT: deferred Gentrourinary exam: ABSENT: indwelling catheter Extremities exam: ABSENT: joint swelling, pedal edema Musculoskeletal exam: PRESENT: ambulatory, normal inspection. ABSENT: deformity, dislocation Neurological exam: PRESENT: alert, awake, oriented to person, oriented to place, oriented to time, oriented to situation, CN II-XII grossly intact. ABSENT: altered Psychiatric exam: PRESENT: flat affect. ABSENT: agitated, anxious Focused psych exam: ABSENT: delusional, paranoid, restlessness Skin exam: PRESENT: dry, normal color, warm. ABSENT: rash Results Laboratory Results: 02/13/20 06:19 10/28/20 06:01 02/12/20 02/12/20 20:20 20:20 Creatine Kinase 130 Troponin I < 0.012 Impressions: Chest X-Ray 02/12/20 19:03 IMPRESSION: NO SIGNIFICANT RADIOGRAPHIC FINDING IN THE CHEST. Head CT 02/12/20 19:04 IMPRESSION: No acute intracranial hemorrhage, mass effect/ midline shift, or new large vessel territory hypodensity. Background of chronic microvascular ischemic and age-related involutional changes. EVIDENCE OF ACUTE STROKE: NO. Head CTA 02/12/20 23:27 IMPRESSION: 1. No acute findings visualized. No dissection. 2. 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 Neck CTA 02/12/20 23:27 IMPRESSION: 1. No acute findings visualized. No dissection. 2. 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 Assessment and Plan - Diagnosis (1) Altered mental status Qualifiers: Altered mental status type: disorientation Qualified Code(s): R41.0 - Disorientation, unspecified Is this a current diagnosis for this admission?: Yes (2) Hyponatremia Is this a current diagnosis for this admission?: Yes (3) Volume depletion Is this a current diagnosis for this admission?: Yes (4) Fall Qualifiers: Encounter type: initial encounter Qualified Code(s): W19.XXXA - Unspecified fall, initial encounter Is this a current diagnosis for this admission?: Yes (5) HTN (hypertension) Is this a current diagnosis for this admission?: Yes (6) History of DVT (deep vein thrombosis) Is this a current diagnosis for this admission?: Yes (7) Hx pulmonary embolism Is this a current diagnosis for this admission?: Yes (8) Hypothyroidism Is this a current diagnosis for this admission?: Yes (9) Multiple sclerosis Is this a current diagnosis for this admission?: Yes (10) Polypharmacy Is this a current diagnosis for this admission?: Yes (11) Longstanding persistent atrial fibrillation Is this a current diagnosis for this admission?: Yes - Plan Summary Summary: 02/14/2020 Altered mental status most likely due to combination of hyponatremia and medications. Sodium is corrected. We will try and streamline medications. Reviewed PT, OT and speech therapy notes. Recommend supervision at discharge. Outpatient speech therapy also recommended. Multiple sclerosis-follows up with neurology. This could certainly be an occult contributor to current status. Hypertension and atrial fibrillation-we will slowly increase antihypertensives. Otherwise continue current regimen including Xarelto Family worried about ability to safely care for patient at home. Considering placement. 02/15/2020 Patient actually discharged from PT and OT due to current functional level. The plan is to discharge to home. 02/16/2020 Depression-patient did identify fluoxetine capsule from [email or web address]. It is the 90 mg extended release capsule. I will substitute 40 mg of fluoxetine twice daily in the interim Multiple sclerosis-we reviewed her treatment plan now and in the past. She is receiving injection therapy every 6 months. She states that she has done extrem mercedes well with methylprednisolone. I have ordered 1 g of methylprednisolone IV daily x3 days. Hypertension-amlodipine increased to 10 mg. We will continue to monitor vital signs. Atrial fibrillation-reasonable rate control. - Time Time Spent with patient: 15-24 minutes Medications reviewed and adjusted accordingly: Yes Anticipated Discharge Disposition: Unknown Anticipated Discharge Timeframe: within 72 hours
[2020-02-16] MEDS ORDERED: VENLAFAXINE HCL 75 MG CAP.SR.24H PO SCH (10:00)
[2020-02-16] MEDS ORDERED: FLUOXETINE HCL 20 MG CAPSULE PO SCH (10:00)
[2020-02-16] MEDS ORDERED: METHYLPREDNISOLONE SOD SUCC 1,000 MG in DEXTROSE 5%-WATER 100 ML IV SCH (10:00)
[2020-02-16] MEDS ORDERED: (PENDING PHARMACY ID) (Pregabalin [Lyrica] 200 MG) PO SCH (10:00)
[2020-02-16] MEDS: FAMOTIDINE 20 MG TABLET PO SCH (10:06)
[2020-02-16] MEDS: LOSARTAN POTASSIUM 25 MG TABLET PO SCH (10:06)
[2020-02-16] MEDS: TOPIRAMATE 25 MG TABLET PO SCH (10:06)
[2020-02-16] MEDS: ASPIRIN 81 MG TABLET, CHEWABLE PO SCH (10:07)
[2020-02-16] MEDS: CYANOCOBALAMIN (VITAMIN B-12) 1,000 MCG TABLET PO SCH (10:08)
--- NOTE | 2020-02-16 10:40 | PDOC TRANSFER SUMMARY ---
Impression - Admit/DC Date/PCP Admission Date/Primary Care Provider: 02/13/20 01:17 STEPHANIE AHNDLEY MD Discharge Date: 02/16/20 - Discharge Diagnosis (1) Altered mental status Is this a current diagnosis for this admission?: Yes (2) Hyponatremia Is this a current diagnosis for this admission?: Yes (3) Volume depletion Is this a current diagnosis for this admission?: Yes (4) Fall Is this a current diagnosis for this admission?: Yes (5) HTN (hypertension) Is this a current diagnosis for this admission?: Yes (6) History of DVT (deep vein thrombosis) Is this a current diagnosis for this admission?: Yes (7) Hx pulmonary embolism Is this a current diagnosis for this admission?: Yes (8) Hypothyroidism Is this a current diagnosis for this admission?: Yes (9) Multiple sclerosis Is this a current diagnosis for this admission?: Yes (10) Polypharmacy Is this a current diagnosis for this admission?: Yes (11) Longstanding persistent atrial fibrillation Is this a current diagnosis for this admission?: Yes - Assessment Summary: 02/14/2020 Altered mental status most likely due to combination of hyponatremia and medications. Sodium is corrected. We will try and streamline medications. Reviewed PT, OT and speech therapy notes. Recommend supervision at discharge. Outpatient speech therapy also recommended. Multiple sclerosis-follows up with neurology. This could certainly be an occult contributor to current status. Hypertension and atrial fibrillation-we will slowly increase antihypertensives. Otherwise continue current regimen including Xarelto Family worried about ability to safely care for patient at home. Considering placement. 02/15/2020 Patient actually discharged from PT and OT due to current functional level. The plan is to discharge to home. 02/16/2020 Depression-patient did identify fluoxetine capsule from [facility]. It is the 90 mg extended release capsule. I will substitute 40 mg of fluoxetine twice daily in the interim Multiple sclerosis-we reviewed her treatment plan now and in the past. She is receiving injection therapy every 6 months. She states that she has done extremely well with methylprednisolone. I have ordered 1 g of methylprednisolone IV daily x3 days. Hypertension-amlodipine increased to 10 mg. We will continue to monitor vital signs. Atrial fibrillation-reasonable rate control. - Additional Information Resuscitation Status: Full Code Discharge Diet: Cardiac Discharge Activity: Activity As Tolerated, Balance Activity w/Rest Referrals: STEPHANIE HANDLEY MD [Primary Care Provider] - 03/05/20 11:00 am Home Medications: Budesonide/Formoterol Fumarate [Symbicort HFA 160-4.5 mcg Inhaler 6 gm] 2 puff IH Q12 11/11/19 Pregabalin [Lyrica] 200 mg PO TID 11/11/19 Rivaroxaban [Xarelto] 20 mg PO DAILY 11/11/19 Levothyroxine Sodium [Synthroid 0.05 mg Tablet] 0.05 mg PO Q6AM tablet 11/12/19 Losartan Potassium [Cozaar 25 mg Tablet] 25 mg PO DAILY tablet 11/12/19 Baclofen [Baclofen 20 mg Tablet] 20 mg PO TID 02/13/20 Carbamazepine [Tegretol Xr 200 mg Tab.sr] 200 mg PO BID 02/13/20 Cyanocobalamin (Vitamin B-12) [Vitamin B12] 2,500 mcg PO DAILY 02/13/20 Desvenlafaxine [Desvenlafaxine ER] 100 mg PO DAILY 02/13/20 Topiramate [Topamax] 25 mg PO BID 02/13/20 Acetaminophen [Tylenol 325 mg Tablet] 975 mg PO Q4HP PRN tablet 02/15/20 Aspirin [Aspirin 81 mg Chewable Tablet] 81 mg PO DAILY tab.chew 02/15/20 Famotidine [Pepcid 20 mg Tablet] 20 mg PO Q12 tablet 02/15/20 Levothyroxine Sodium [Synthroid 0.05 mg Tablet] 0.05 mg PO Q6AM tablet 02/15/20 Losartan Potassium [Cozaar 25 mg Tablet] 25 mg PO DAILY tablet 02/15/20 Rivaroxaban [Xarelto 10 mg Tablet] 20 mg PO WSUPPER tablet 02/15/20 Topiramate [Topamax 25 mg Tablet] 25 mg PO Q12 tablet 02/15/20 History of Present Illiness History of Present Illness: GRECIA COBOS is a 69 year old female with a history of A. fib on Xarelto, DVT, PE, MS, COPD, hyperlipidemia, hypertension and TIA who was brought in by EMS after she fell down in the bathtub and was found to be altered from her baseline. Her daughter reports that her general functional status has been progressively in decline for the past 4 months and has been having issues with stability when she stands up and gait abnormalities. She has had recurrent episodes of change in her mental status but today's episode was prolonged. She reports that she had multiple falls in the past 4 months. The daughter attributes some of this following down episodes to low blood sugar as the patient had borderline blood sugars in the past during the incidents. Today's episode of change in her mental status with more severe than her usual and she was not able to know her granddaughter. Her daughter also reports that she has been admitted to the hospital multiple times in the past due to low sodium levels. She had a similar episode of fall a day ago where she was found by her neighbor lying on the floor. Patient lives with her daughter and at baseline uses a roller walker to move. According to her daughter, she has been taking has been taking all her medications. The daughter has not noticed any abnormal body movements or seizure-like activities. She has not spiked fever at home recently and the daughter does not think she has had contact with sick patient recently. Hospital Course Hospital Course: The patient had an uneventful hospital course. With correction of her serum sodium her altered mental state appeared to resolve. She is on multiple medications as well. Hyponatremia would seem to be the primary cause although a serum sodium of 125 typically will not cause marked confusion. She actually was evaluated by PT and OT and was discharged as her functional level was quite good. Please see PT and OT notes for detail. The patient does have a history of severe depression. There have been some medication changes recently that also may have contributed to her acute change but it is impossible to tell at this time. As she is doing much better and her altered mental status has cleared the patient is stable for discharge. 02/16/2020-after additional discussion this morning the patient feels that some of the balance issues could be related to her multiple sclerosis. She reports that in the past she has gotten excellent response to intravenous Solu-Medrol. I did order a dose today. Consider a gram daily for 2 additional days. Physical Exam Vital Signs: Temp Pulse Resp BP Pulse Ox 98.0 F 84 16 137/50 H 96 02/16/20 08:23 02/16/20 07:47 02/16/20 07:47 02/16/20 07:47 02/16/20 07:47 Intake & Output 02/15/20 02/16/20 02/17/20 06:59 06:59 06:59 Intake Total 1140 690 Balance 1140 690 Weight 87.2 kg 87.2 kg General appearance: PRESENT: cooperative, mild distress, well-developed Respiratory exam: PRESENT: clear to auscultation baljinder, symmetrical, unlabored. ABSENT: prolonged expiratory phas, rales, rhonchi, tachypnea, wheezes Cardiovascular exam: PRESENT: RRR, +S1, +S2. ABSENT: bradycardia, diastolic murmur, irregular rhythm, systolic murmur, tachycardia GI/Abdominal exam: PRESENT: normal bowel sounds, soft. ABSENT: distended, guarding, tenderness Rectal exam: PRESENT: deferred Gentrourinary exam: ABSENT: indwelling catheter Extremities exam: ABSENT: pedal edema Musculoskeletal exam: PRESENT: ambulatory Neurological exam: PRESENT: alert, awake, oriented to person, oriented to place, oriented to time, oriented to situation, CN II-XII grossly intact Psychiatric exam: PRESENT: depressed. ABSENT: agitated, anxious Results Laboratory Results: WBC 7.3 10^3/uL (4.0-10.5) 02/13/20 06:19 RBC 4.69 10^6/uL (3.72-5.28) 02/13/20 06:19 Hgb 13.8 g/dL (12.0-15.5) 02/13/20 06:19 Hct 40.0 % (36.0-47.0) 02/13/20 06:19 MCV 85 fl (80-97) 02/13/20 06:19 MCH 29.4 pg (27.0-33.4) 02/13/20 06:19 MCHC 34.4 g/dL (32.0-36.0) 02/13/20 06:19 RDW 17.3 % (11.5-14.0) H 02/13/20 06:19 Plt Count 360 10^3/uL (150-450) 02/13/20 06:19 Lymph % (Auto) 18.5 % (13-45) 02/13/20 06:19 Baxter % (Auto) 6.6 % (3-13) 02/13/20 06:19 Eos % (Auto) 1.0 % (0-6) 02/13/20 06:19 Baso % (Auto) 0.4 % (0-2) 02/13/20 06:19 Absolute Neuts (auto) 5.3 10^3/uL (1.7-8.2) 02/13/20 06:19 Absolute Lymphs (auto) 1.3 10^3/uL (0.5-4.7) 02/13/20 06:19 Absolute Monos (auto) 0.5 10^3/uL (0.1-1.4) 02/13/20 06:19 Absolute Eos (auto) 0.1 10^3/uL (0.0-0.6) 02/13/20 06:19 Absolute Basos (auto) 0.0 10^3/uL (0.0-0.2) 02/13/20 06:19 Seg Neutrophils % 73.5 % (42-78) 02/13/20 06:19 PT 12.7 SEC (11.4-15.4) 02/12/20 20:20 INR 0.93 02/12/20 20:20 APTT 22.3 SEC (23.5-35.8) L 02/12/20 20:20 Sodium 135.6 mmol/L (137-145) L 02/15/20 06:01 Potassium 3.9 mmol/L (3.6-5.0) 02/15/20 06:01 Chloride 101 mmol/L (98-107) 02/15/20 06:01 Carbon Dioxide 23 mmol/L (22-30) 02/15/20 06:01 Anion Gap 12 (5-19) 02/15/20 06:01 BUN 7 mg/dL (7-20) 02/15/20 06:01 Creatinine 0.51 mg/dL (0.52-1.25) L 02/15/20 06:01 Est GFR ( Amer) > 60 (>60) 02/15/20 06:01 Est GFR (MDRD) Non-Af > 60 (>60) 02/15/20 06:01 Glucose 119 mg/dL (75-110) H 02/15/20 06:01 POC Glucose 120 mg/dL (70-110) H 02/16/20 05:56 Serum Osmolality 253 mOsm/kg (275-301) L 02/12/20 20:20 Calcium 10.3 mg/dL (8.4-10.2) H 02/15/20 06:01 Phosphorus 3.5 mg/dL (2.5-4.5) 02/12/20 20:20 Magnesium 2.2 mg/dL (1.6-2.3) 02/12/20 20:20 Total Bilirubin 0.4 mg/dL (0.2-1.3) 02/12/20 20:20 Direct Bilirubin 0.3 mg/dL (0.0-0.4) 02/12/20 20:20 Neonat Total Bilirubin Not Reportable 02/12/20 20:20 Neonat Direct Bilirubin Not Reportable 02/12/20 20:20 Neonat Indirect Bili Not Reportable 02/12/20 20:20 AST 21 U/L (14-36) 02/12/20 20:20 ALT 14 U/L (<35) 02/12/20 20:20 Alkaline Phosphatase 172 U/L (38-126) H 02/12/20 20:20 Ammonia 26.5 umol/L (9-33) 02/14/20 05:23 Creatine Kinase 130 U/L (30-135) 02/12/20 20:20 Troponin I < 0.012 ng/mL 02/12/20 20:20 Total Protein 7.9 g/dL (6.3-8.2) 02/12/20 20:20 Albumin 4.4 g/dL (3.5-5.0) 02/12/20 20:20 Triglycerides 103 mg/dL (<150) 02/13/20 06:19 Cholesterol 251.03 mg/dL (0-200) H 02/13/20 06:19 LDL Cholesterol Direct 145 mg/dL (<100) H 02/13/20 06:19 VLDL Cholesterol 21.0 mg/dL (10-31) 02/13/20 06:19 HDL Cholesterol 89 mg/dL (>40) 02/13/20 06:19 Lipase 92.4 U/L (23-300) 02/12/20 20:20 TSH 3.17 uIU/mL (0.47-4.68) 02/14/20 05:23 Urine Color COLORLESS 02/12/20 20:20 Urine Appearance CLEAR 02/12/20 20:20 Urine pH 8.0 (5.0-9.0) 02/12/20 20:20 Ur Specific Notrees 1.003 02/12/20 20:20 Ur Specific Notrees Cancelled 02/12/20 20:20 Urine Protein NEGATIVE mg/dL (NEGATIVE) 02/12/20 20:20 Urine Glucose (UA) NEGATIVE mg/dL (NEGATIVE) 02/12/20 20:20 Urine Ketones NEGATIVE mg/dL (NEGATIVE) 02/12/20 20:20 Urine Blood NEGATIVE (NEGATIVE) 02/12/20 20:20 Urine Nitrite NEGATIVE (NEGATIVE) 02/12/20 20:20 Urine Bilirubin NEGATIVE (NEGATIVE) 02/12/20 20:20 Urine Urobilinogen NEGATIVE mg/dL (<2.0) 02/12/20 20:20 Ur Leukocyte Esterase NEGATIVE (NEGATIVE) 02/12/20 20:20 Urine WBC (Auto) 0 /HPF 02/12/20 20:20 Urine RBC (Auto) 0 /HPF 02/12/20 20:20 Squamous Epi Cells Auto 1 /HPF 02/12/20 20:20 Urine Osmolality 185 mOsm/kg (300-900) L 02/12/20 20:20 Urine Creatinine 9.9 mg/dL (15-278) L 02/12/20 20:20 Urine Sodium 75 mmol/L (30-90) 02/12/20 20:20 Urine Potassium 9.9 mmol/L (22-164) L 02/12/20 20:20 Urine Total Protein 14.0 mg/dL (<12) H 02/12/20 20:20 Urine Ascorbic Acid NEGATIVE (NEGATIVE) 02/12/20 20:20 Urine Opiates Screen NEGATIVE 02/12/20 20:20 Urine Methadone Screen NEGATIVE 02/12/20 20:20 Ur Barbiturates Screen NEGATIVE 02/12/20 20:20 Ur Phencyclidine Scrn NEGATIVE 02/12/20 20:20 Ur Amphetamines Screen NEGATIVE 02/12/20 20:20 U Benzodiazepines Scrn NEGATIVE 02/12/20 20:20 Urine Cocaine Screen NEGATIVE 02/12/20 20:20 U Marijuana (THC) Screen NEGATIVE 02/12/20 20:20 Serum Alcohol < 10 mg/dL (NONE DETECTED) 02/12/20 20:20 COVID-19 Source See comment 02/13/20 10:30 COVID-19 (TELLY) Not Detected (Not Detect) 02/13/20 10:30 02/12/20 20:20 Troponin I < 0.012 Impressions: Chest X-Ray 02/12/20 19:03 IMPRESSION: NO SIGNIFICANT RADIOGRAPHIC FINDING IN THE CHEST. Head CT 02/12/20 19:04 IMPRESSION: No acute intracranial hemorrhage, mass effect/ midline shift, or new large vessel territory hypodensity. Background of chronic microvascular ischemic and age-related involutional changes. EVIDENCE OF ACUTE STROKE: NO. Head CTA 02/12/20 23:27 IMPRESSION: 1. No acute findings visualized. No dissection. 2. 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 Neck CTA 02/12/20 23:27 IMPRESSION: 1. No acute findings visualized. No dissection. 2. 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 Plan Health Concerns: Multiple medications for severe depression. Family reports poor balance but she did well with physical and Occupational Therapy. Plan of Treatment: I did ask her to hold her furosemide until she sees her primary care provider. In addition I suggested trying twice daily dosing of her 200 mg of Lyrica instead of 3 times. Desvenlafaxine and venlafaxine were both listed on medication list. Clarification needs to be obtained. I told her to continue the desvenlafaxine at this time as taking both could easily result in adverse effects including gait instability. 02/16/2020 Further medication clarification indicates that her current dosing is venlafaxine extended release 225 mg daily She is also on extended release fluoxetine 90 mg daily I have initiated methylprednisolone 1 g IV daily for a total of 3 days Continue furosemide and monitor electrolytes Goals: Prevention of episodes of confusion. Maintain stable electrolytes. Streamline medication profile if possible. Stroke Is this a Stroke Patient?: No Acute Heart Failure Is this a Heart Failure Patient?: No
[2020-02-16 15:17] VITALS: BP 137/50
== END 2020-02-16 15:48 | DRG 640 ==
LOC: ER 16:46 → EH 02-13 01:17 → 3W 02-13 02:22
PROVIDERS: ADMIT Student in an Organized Health Care Education/Training Program; ATTEND Hospitalist
DX: E87.1 Hypo-osmolality and hyponatremia (principal); G93.41 Metabolic encephalopathy; I48.11 Longstanding persistent atrial fibrillation; E86.9 Volume depletion, unspecified; I10 Essential (primary) hypertension; E03.9 Hypothyroidism, unspecified; G35 Multiple sclerosis; T50.915A Adverse effect of multiple unspecified drugs, medicaments and biological substances, initial encounter; J44.9 Chronic obstructive pulmonary disease, unspecified; E78.5 Hyperlipidemia, unspecified; W18.2XXA Fall in (into) shower or empty bathtub, initial encounter; Y92.002 Bathroom of unspecified non-institutional (private) residence as the place of occurrence of the external cause; R47.81 Slurred speech; F09 Unspecified mental disorder due to known physiological condition; E11.9 Type 2 diabetes mellitus without complications; K21.9 Gastro-esophageal reflux disease without esophagitis; R29.6 Repeated falls; Z20.828 Contact with and (suspected) exposure to other viral communicable diseases; Z86.711 Personal history of pulmonary embolism; Z86.718 Personal history of other venous thrombosis and embolism; Z79.899 Other long term (current) drug therapy; Z79.01 Long term (current) use of anticoagulants; Z86.73 Personal history of transient ischemic attack (TIA), and cerebral infarction without residual deficits; Z79.51 Long term (current) use of inhaled steroids; Z79.890 Hormone replacement therapy; Z82.49 Family history of ischemic heart disease and other diseases of the circulatory system
CPT/HCPCS: 36415; 70450; 70496; 70498; 71046; 80048; 80053; 80061; 80201; 80307; 81001; 82140; 82550; 82570; 82962; 83690; 83735; 83930; 83935; 84100; 84133; 84156; 84295; 84300; 84443; 84484; 85025; 85610; 85730; 87040; 87086; 87635; 93005; 93010; 96374; 99285; C9803; J0360; J2310; J2930; J3490; J7030; J7060

== ENCOUNTER 2020-02-17 09:30 | Day surgery (SDC) | payer MEDICARE ==
[2020-02-17] MEDS: LEVOTHYROXINE SODIUM 0.05 MG TABLET PO SCH (06:34)
[~2020-02-17 09:30] MED LIST: HYDRALAZINE HCL INJ/PF 20 MG/1 ML SDV IV PRN; LEVOTHYROXINE SODIUM 0.05 MG TABLET PO SCH; LORAZEPAM 0.5 MG TABLET PO PRN
[2020-02-17] MEDS ORDERED: METHYLPREDNISOLONE INJ 1000 MG VIAL IV SCH (10:00)
[2020-02-17] MEDS: FLUTICASONE/VILANTEROL 200-25 MCG/DOSE IH SCH (10:29)
[2020-02-17] MEDS: BACLOFEN 20 MG TABLET PO SCH ×3 (10:30→17:56)
[2020-02-17] MEDS: LOSARTAN POTASSIUM 25 MG TABLET PO SCH (10:31)
[2020-02-17] MEDS: CYANOCOBALAMIN (VITAMIN B-12) 1,000 MCG TABLET PO SCH (10:31)
[2020-02-17] MEDS: PREGABALIN 100 MG CAPSULE PO SCH ×3 (10:32→17:55)
[2020-02-17] MEDS: FUROSEMIDE 20 MG TABLET PO SCH (10:32)
[2020-02-17] MEDS: FAMOTIDINE 20 MG TABLET PO SCH ×2 (10:32→21:49)
[2020-02-17] MEDS: CARBAMAZEPINE 200 MG TAB.SR.12H PO SCH ×2 (10:32→17:56)
[2020-02-17] MEDS: TOPIRAMATE 25 MG TABLET PO SCH ×2 (10:32→21:49)
[2020-02-17] MEDS: FLUOXETINE HCL 20 MG CAPSULE PO SCH ×2 (10:32→21:49)
[2020-02-17] MEDS: VENLAFAXINE HCL 75 MG CAP.SR.24H PO SCH (10:32)
[2020-02-17] MEDS: ASPIRIN 81 MG TABLET, CHEWABLE PO SCH (10:32)
[2020-02-17] MEDS: RIVAROXABAN 10 MG TABLET PO SCH (10:32)
[2020-02-17] MEDS: METHYLPREDNISOLONE SOD SUCC 1,000 MG in DEXTROSE 5%-WATER 100 ML IV SCH (10:39)
--- NOTE | 2020-02-17 18:41 | PDOC H&P ---
History of Present Illness Admission Date/PCP: 02/16/20 23:20 STEPHANIE HANDLEY MD Patient complains of: Multiple sclerosis History of Present Illness: GRECIA COBOS is a 69 year old female the patient was discharged yesterday to [facility]. She needed 1 g of Solu-Medrol for her multiple sclerosis on Thursday and Thursday. Unfortunately [facility] called back and stated that they would not be able to administer this medication and sent the patient back to the hospital. Past Medical History Cardiac Medical History: Reports: Atrial Fibrillation, DVT, Hyperlipidema, Hypertension, Pulmonary Embolism Pulmonary Medical History: Reports: Chronic Obstructive Pulmonary Disease (COPD) Neurological Medical History: Reports: Migraine Endocrine Medical History: Reports: Diabetes Mellitus Type 2 - Borderline, diet controlled GI Medical History: Reports: Gastroesophageal Reflux Disease Musculoskeltal Medical History: Reports: Arthritis - I did 9 0 she gets nauseous Rub all over body Psychiatric Medical History: Reports: Depression Past Surgical History Past Surgical History: Reports: Appendectomy, Cholecystectomy, Colostomy, Hysterectomy Social History Information Source: Patient Smoking Status: Current Some Day Smoker Electronic Cigarette use?: No Frequency of Alcohol Use: None Hx Recreational Drug Use: No Drugs: None - Advance Directive Resuscitation Status: Full Code Surrogate healthcare decision maker:: The patient's daughter Family History Family History: CAD, Malignancy Parental Family History Reviewed: Yes Children Family History Reviewed: Yes Sibling(s) Family History Reviewed.: Yes Medication/Allergy Home Medications: Budesonide/Formoterol Fumarate [Symbicort HFA 160-4.5 mcg Inhaler 6 gm] 2 puff IH Q12 11/11/19 Pregabalin [Lyrica] 200 mg PO Q8 11/11/19 Rivaroxaban [Xarelto] 20 mg PO DAILY 11/11/19 Levothyroxine Sodium [Synthroid 0.05 mg Tablet] 0.05 mg PO Q6AM tablet 11/12/19 Baclofen [Baclofen 20 mg Tablet] 20 mg PO TID 02/13/20 Carbamazepine [Tegretol Xr 200 mg Tab.sr] 200 mg PO BID 02/13/20 Losartan Potassium [Cozaar 25 mg Tablet] 25 mg PO DAILY tablet 02/15/20 Topiramate [Topamax 25 mg Tablet] 25 mg PO Q12 tablet 02/15/20 Furosemide [Lasix 20 mg Tablet] 20 mg PO QAM #30 tablet 02/16/20 Venlafaxine HCl ER [Effexor Xr 75 mg Cap.sr] 225 mg PO DAILY cap.sr.24h 02/16/20 Cyanocobalamin (Vitamin B-12) [Vitamin B12] 2,500 mcg PO DAILY 02/17/20 Omeprazole 40 mg PO BID 02/17/20 Ondansetron [Zofran Odt 4 mg Tablet] 4 mg PO Q8HP PRN 02/17/20 Allergies/Adverse Reactions: No Known Allergies Allergy (Verified 02/12/20 18:11) Review of Systems Review of Systems: No complaints since discharge yesterday Physical Exam Vital Signs: Temp Pulse Resp BP Pulse Ox 99.0 F 100 18 154/58 H 99 02/17/20 15:17 02/17/20 15:17 02/17/20 15:17 02/17/20 15:17 02/17/20 15:17 Intake & Output 02/16/20 02/17/20 02/18/20 06:59 06:59 06:59 Output Total 0 Balance 0 Weight 84.7 kg General appearance: PRESENT: no acute distress, cooperative, well-developed Respiratory exam: PRESENT: clear to auscultation baljinder, symmetrical, unlabored. ABSENT: rales, rhonchi, tachypnea, wheezes Cardiovascular exam: PRESENT: RRR, +S1, +S2 GI/Abdominal exam: PRESENT: normal bowel sounds, soft. ABSENT: distended, tenderness Rectal exam: PRESENT: deferred Gentrourinary exam: ABSENT: indwelling catheter Extremities exam: ABSENT: pedal edema Musculoskeletal exam: PRESENT: ambulatory, full ROM, normal inspection. ABSENT: deformity, dislocation Neurological exam: PRESENT: alert, awake, oriented to person, oriented to place, oriented to time, oriented to situation, CN II-XII grossly intact Psychiatric exam: PRESENT: appropriate affect. ABSENT: agitated, anxious, unusual affect Focused psych exam: ABSENT: delusional, paranoid, restlessness Assessment and Plan - Diagnosis (1) Multiple sclerosis Is this a current diagnosis for this admission?: Yes - Plan Summary Summary: Patient requires 1 g of IV Solu-Medrol today and a second dose tomorrow. We will continue her current medications - Time Time Spent with patient: 25-34 minutes Medications reviewed and adjusted accordingly: Yes Anticipated Discharge Disposition: Alf Facility Anticipated Discharge Timeframe: within 48 hours
[2020-02-18] MEDS: LEVOTHYROXINE SODIUM 0.05 MG TABLET PO SCH (05:54)
[2020-02-18] MEDS ORDERED: INFLUENZA QUAD (6MOS+) 2020-21 VAC 0.5 ML SYR IM ONE (08:00)
[2020-02-18] MEDS: VENLAFAXINE HCL 75 MG CAP.SR.24H PO SCH (10:38)
[2020-02-18] MEDS: FLUOXETINE HCL 20 MG CAPSULE PO SCH (10:38)
[2020-02-18] MEDS: CYANOCOBALAMIN (VITAMIN B-12) 1,000 MCG TABLET PO SCH (10:39)
[2020-02-18] MEDS: FAMOTIDINE 20 MG TABLET PO SCH (10:39)
[2020-02-18] MEDS: PREGABALIN 100 MG CAPSULE PO SCH ×2 (10:40→13:54)
[2020-02-18] MEDS: TOPIRAMATE 25 MG TABLET PO SCH (10:41)
[2020-02-18] MEDS: ASPIRIN 81 MG TABLET, CHEWABLE PO SCH (10:42)
[2020-02-18] MEDS: LOSARTAN POTASSIUM 25 MG TABLET PO SCH (10:42)
[2020-02-18] MEDS: FUROSEMIDE 20 MG TABLET PO SCH (10:42)
[2020-02-18] MEDS: RIVAROXABAN 10 MG TABLET PO SCH (10:44)
[2020-02-18] MEDS: CARBAMAZEPINE 200 MG TAB.SR.12H PO SCH (10:49)
[2020-02-18] MEDS: BACLOFEN 20 MG TABLET PO SCH ×2 (10:49→13:54)
[2020-02-18] MEDS: FLUTICASONE/VILANTEROL 200-25 MCG/DOSE IH SCH (10:49)
[2020-02-18] MEDS: METHYLPREDNISOLONE SOD SUCC 1,000 MG in DEXTROSE 5%-WATER 100 ML IV SCH (11:45)
--- NOTE | 2020-02-18 12:34 | PDOC TRANSFER SUMMARY ---
Impression - Admit/DC Date/PCP Admission Date/Primary Care Provider: 02/16/20 23:20 STEPHANIE HANDLEY MD Discharge Date: 02/18/20 - Discharge Diagnosis (1) Multiple sclerosis Is this a current diagnosis for this admission?: Yes - Assessment Summary: Patient requires 1 g of IV Solu-Medrol today and a second dose tomorrow. We will continue her current medications Discharge Diagnoses (1) Altered mental status Is this a current diagnosis for this admission?: Yes (2) Hyponatremia Is this a current diagnosis for this admission?: Yes (3) Volume depletion Is this a current diagnosis for this admission?: Yes (4) Fall Is this a current diagnosis for this admission?: Yes (5) HTN (hypertension) Is this a current diagnosis for this admission?: Yes (6) History of DVT (deep vein thrombosis) Is this a current diagnosis for this admission?: Yes (7) Hx pulmonary embolism Is this a current diagnosis for this admission?: Yes (8) Hypothyroidism Is this a current diagnosis for this admission?: Yes (9) Multiple sclerosis Is this a current diagnosis for this admission?: Yes (10) Polypharmacy Is this a current diagnosis for this admission?: Yes (11) Longstanding persistent atrial fibrillation Is this a current diagnosis for this admission?: Yes - Additional Information Resuscitation Status: Full Code Discharge Diet: Cardiac Discharge Activity: Activity As Tolerated Referrals: STEPHANIE HANDLEY MD [Primary Care Provider] - Home Medications: Budesonide/Formoterol Fumarate [Symbicort HFA 160-4.5 mcg Inhaler 6 gm] 2 puff IH Q12 11/11/19 Pregabalin [Lyrica] 200 mg PO Q8 11/11/19 Rivaroxaban [Xarelto] 20 mg PO DAILY 11/11/19 Levothyroxine Sodium [Synthroid 0.05 mg Tablet] 0.05 mg PO Q6AM tablet 11/12/19 Baclofen [Baclofen 20 mg Tablet] 20 mg PO TID 02/13/20 Carbamazepine [Tegretol Xr 200 mg Tab.sr] 200 mg PO BID 02/13/20 Losartan Potassium [Cozaar 25 mg Tablet] 25 mg PO DAILY tablet 02/15/20 Topiramate [Topamax 25 mg Tablet] 25 mg PO Q12 tablet 02/15/20 Furosemide [Lasix 20 mg Tablet] 20 mg PO QAM #30 tablet 02/16/20 Venlafaxine HCl ER [Effexor Xr 75 mg Cap.sr] 225 mg PO DAILY cap.sr.24h 02/16/20 Cyanocobalamin (Vitamin B-12) [Vitamin B12] 2,500 mcg PO DAILY 02/17/20 Omeprazole 40 mg PO BID 02/17/20 Ondansetron [Zofran Odt 4 mg Tablet] 4 mg PO Q8HP PRN 02/17/20 History of Present Illiness History of Present Illness: GRECIA COBOS is a 69 year old female the patient was discharged yesterday to [facility]. She needed 1 g of Solu-Medrol for her multiple sclerosis on Thursday and Thursday. Unfortunately [facility] called back and stated that they would not be able to administer this medication and sent the patient back to the hospital. Previous hospitalization GRECIA COBOS is a 69 year old female with a history of A. fib on Xarelto, DVT, PE, MS, COPD, hyperlipidemia, hypertension and TIA who was brought in by EMS after she fell down in the bathtub and was found to be altered from her baseline. Her daughter reports that her general functional status has been progressively in decline for the past 4 months and has been having issues with stability when she stands up and gait abnormalities. She has had recurrent episodes of change in her mental status but today's episode was prolonged. She reports that she had multiple falls in the past 4 months. The daughter attributes some of this following down episodes to low blood sugar as the patient had borderline blood sugars in the past during the incidents. Today's episode of change in her mental status with more severe than her usual and she was not able to know her granddaughter. Her daughter also reports that she has been admitted to the hospital multiple times in the past due to low sodium le vels. She had a similar episode of fall a day ago where she was found by her neighbor lying on the floor. Patient lives with her daughter and at baseline uses a roller walker to move. According to her daughter, she has been taking has been taking all her medications. The daughter has not noticed any abnormal body movements or seizure-like activities. She has not spiked fever at home recently and the daughter does not think she has had contact with sick patient recently. Hospital Course Hospital Course: Patient received her 2 doses of Solu-Medrol without event Physical Exam Vital Signs: Temp Pulse Resp BP Pulse Ox 97.8 F 85 16 166/77 H 99 02/18/20 10:00 02/18/20 08:48 02/18/20 08:48 02/18/20 08:48 02/18/20 08:48 Intake & Output 02/17/20 02/18/20 02/19/20 06:59 06:59 05:59 Output Total 0 Balance 0 Weight 84.7 kg 87.7 kg General appearance: PRESENT: no acute distress Respiratory exam: PRESENT: clear to auscultation baljinder. ABSENT: rales, rhonchi, tachypnea, wheezes Cardiovascular exam: PRESENT: RRR, +S1, +S2 GI/Abdominal exam: PRESENT: normal bowel sounds, soft. ABSENT: tenderness Rectal exam: PRESENT: deferred Neurological exam: PRESENT: alert, awake, oriented to person, oriented to place, oriented to time, oriented to situation, CN II-XII grossly intact Psychiatric exam: ABSENT: agitated, anxious Plan Health Concerns: Multiple sclerosis Plan of Treatment: Return to [facility]. After discharge follow-up with neurology and primary care provider Goals: Achieve better gait and balance Time Spent: Less than 30 Minutes Stroke Is this a Stroke Patient?: No Acute Heart Failure Is this a Heart Failure Patient?: No
[2020-02-18 13:19] VITALS: BP 128/54
== END 2020-02-18 17:13 | disposition home or self-care (01) ==
LOC: ER 09:30 → 5 09:30 → ER 02-18 17:13 → UNDODISIN 02-18 17:13 → EDSTATUS 02-20 09:45
PROVIDERS: ATTEND Hospitalist
DX: G35 Multiple sclerosis (principal); R41.82 Altered mental status, unspecified; W18.2XXA Fall in (into) shower or empty bathtub, initial encounter; E87.1 Hypo-osmolality and hyponatremia; E86.9 Volume depletion, unspecified; I10 Essential (primary) hypertension; E03.9 Hypothyroidism, unspecified; I48.11 Longstanding persistent atrial fibrillation; J44.9 Chronic obstructive pulmonary disease, unspecified; F17.200 Nicotine dependence, unspecified, uncomplicated; K21.9 Gastro-esophageal reflux disease without esophagitis; R29.6 Repeated falls; Z86.718 Personal history of other venous thrombosis and embolism; Z79.899 Other long term (current) drug therapy; Z86.711 Personal history of pulmonary embolism; Z23 Encounter for immunization; Z79.01 Long term (current) use of anticoagulants; Z79.890 Hormone replacement therapy; Z86.73 Personal history of transient ischemic attack (TIA), and cerebral infarction without residual deficits; Z91.81 History of falling; Z82.49 Family history of ischemic heart disease and other diseases of the circulatory system
CPT/HCPCS: 90686; 96365; 96375; G0008; A9270 ×27; J0360; J2930 ×2; J7060 ×2; J3490; 90471

== ENCOUNTER 2020-05-13 17:37 | Emergency (ER) | payer MEDICARE ==
--- NOTE | 2020-05-13 18:24 | ER Document Report ---
ED Medical Screen (RME) - General Stated Complaint: ABDOMINAL PAIN Time Seen by Provider: 05/13/20 18:14 Primary Care Provider: STEPHANIE HANDLEY MD [Primary Care Provider] - Follow up as needed Notes: Patient is a 61-year-old female presents the department with a chief complaints of bilateral upper abdominal pain. States that she also feels dizzy. Denies any nausea or vomiting. Patient has history of a a cholecystectomy and bowel s urgery. Exam: Tender right upper abdomen. I have greeted and performed a rapid initial assessment of this patient. A comprehensive ED assessment and evaluation of the patient, analysis of test resu lts and completion of medical decision making process will be conducted by an additional ED providers. TRAVEL OUTSIDE OF THE [place] IN LAST 30 DAYS: No - Related Data Allergies/Adverse Reactions: No Known Allergies Allergy (Verified 02/12/20 18:11) Past Medical History - Past Medical History Cardiac Medical History: Reports: Hx Atrial Fibrillation, Hx DVT, Hx Hypercholesterolemia, Hx Hypertension, Hx Pulmonary Embolism Pulmonary Medical History: Reports: Hx COPD Neurological Medical History: Reports: Hx Migraine Endocrine Medical History: Reports: Hx Diabetes Mellitus Type 2 - Borderline, diet controlled Renal/ Medical History: Denies: Hx Peritoneal Dialysis GI Medical History: Reports: Hx Gastroesophageal Reflux Disease Musculoskeltal Medical History: Reports Hx Arthritis - I did 9 0 she gets nauseous Rub all over body Psychiatric Medical History: Reports: Hx Depression Past Surgical History: Reports: Hx Abdominal Surgery - They got the 4 feet of int4 ft of intestines removed, colostomy and revised, Hx Appendectomy, Hx Cholecystectomy, Hx Colostomy, Hx Hysterectomy - Immunizations Hx Diphtheria, Pertussis, Tetanus Vaccination: Yes Physical Exam - Vital signs Vitals: Temp Pulse Resp BP Pulse Ox 98.8 F 72 20 158/88 H 99 05/13/20 18:00 05/13/20 18:00 05/13/20 18:00 05/13/20 18:00 05/13/20 18:00 Course - Vital Signs Vital signs: Temp Pulse Resp BP Pulse Ox 98.8 F 72 20 158/88 H 99 05/13/20 18:00 05/13/20 18:00 05/13/20 18:00 05/13/20 18:00 05/13/20 18:00 Doctor's Discharge - Discharge Referrals: STEPHANIE HANDLEY MD [Primary Care Provider] - Follow up as needed
[2020-05-13 19:18] LABS: ABSOLUTE LYMPHOCYTES (AUTO) 1.5 10^3/uL (0.5-4.7); ABSOLUTE MONOCYTES (AUTO) 0.4 10^3/uL (0.1-1.4); ABSOLUTE NEUT (AUTO) 7.8 10^3/uL (1.7-8.2); BASOPHILS % (AUTO) 0.3 % (0-2); EOSINOPHILS % (AUTO) 0.3 % (0-6); HEMATOCRIT 42.9 % (36.0-47.0); HEMOGLOBIN 14.2 g/dL (12.0-15.5); LYMPHOCYTES % (AUTO) 15.1 % (13-45); MEAN CORPUSCULAR HEMOGLOBIN 30.2 pg (27.0-33.4); MEAN CORPUSCULAR HGB CONC 33.1 g/dL (32.0-36.0); MEAN CORPUSCULAR VOLUME 91 fl (80-97); MONOCYTES % (AUTO) 4.5 % (3-13); PLATELET COUNT 320 10^3/uL (150-450); RED CELL DISTRIBUTION WIDTH 14.9 % (11.5-14.0); SEGMENTED NEUTROPHILS % (AUTO) 79.8 % (42-78); TOTAL CELLS COUNTED % (AUTO) 100 %; WHITE BLOOD COUNT 9.8 10^3/uL (4.0-10.5)
[2020-05-13 19:28] LABS: APPEARANCE,URINE CLEAR; BILIRUBIN,URINE NEGATIVE (NEGATIVE); COLOR,URINE STRAW; GLUCOSE, URINE NEGATIVE (NEGATIVE); KETONES,URINE NEGATIVE (NEGATIVE); LEUKOCYTE ESTERASE,URINE NEGATIVE (NEGATIVE); NITRITE,URINE NEGATIVE (NEGATIVE); PROTEIN,URINE NEGATIVE (NEGATIVE); URINE SPECIFIC GRAVITY 1.015; UROBILINOGEN,URINE NEGATIVE mg/dL (<2.0)
[2020-05-13 19:42] LABS: ALBUMIN 4.9 g/dL (3.5-5.0); ALKALINE PHOSPHATASE 176 U/L (38-126); ANION GAP 10 (5-19); ASPARTATE AMINO TRANSFERASE 25 U/L (14-36); BILIRUBIN,DIRECT 0.2 mg/dL (0.0-0.4); BILIRUBIN,TOTAL 0.5 mg/dL (0.2-1.3); BLOOD UREA NITROGEN 5 mg/dL (7-20); CALCIUM 10.8 mg/dL (8.4-10.2); CARBON DIOXIDE 26 mmol/L (22-30); CHLORIDE 102 mmol/L (98-107); GLUCOSE 99 mg/dL (75-110); POTASSIUM 4.1 mmol/L (3.6-5.0); TOTAL PROTEIN 8.8 g/dL (6.3-8.2)
--- NOTE | 2020-05-13 21:51 | RADIOLOGY REPORT (SQ) ---
CLINICAL INDICATION: abdominal pain. . TECHNIQUE: Contrast enhanced spiral axial CT imaging was obtained of the abdomen and pelvis with multiplanar reconstructions. This exam was performed according to our departmental dose-optimization program, which includes automated exposure control, adjustment of the mA and/or kV according to patient size and/or use of iterative reconstruction techniques. COMPARISON: None. CORRELATION: None. FINDINGS: Abdomen: The lung bases are grossly clear. The heart is of normal size. No evidence of pleural or pericardial fluid. The liver is mildly heterogeneous. It is enlarged at 18.5 cm craniocaudad. The gallbladder is surgically absent. The pancreas is unremarkable. The spleen is unremarkable. The adrenals are unremarkable. The kidneys appear grossly normal without evidence of urolithiasis or hydronephrosis. There is no evidence of free air. No free fluid. No bulky adenopathy. Abdominal aorta is nonaneurysmal. Pelvis: The bowel is nonobstructed. No focal inflammatory change. Pelvic contents are unremarkable. The appendix is not seen.. Visualized bones definite osteoarthritis. Vascular calcification IMPRESSION: Imaging is degraded by patient motion, with resultant artifact. The best possible images were obtained. Mild medical hepatic disease and hepatomegaly.
[2020-05-13] MEDS ORDERED: METHYLPREDNISOLONE INJ 125 MG/2 ML SDV IV ONE (23:03)
[2020-05-13 23:45] VITALS: BP 143/75
== END 2020-05-13 23:54 | disposition home or self-care (01) ==
LOC: ER 17:37
DX: R10.10 Upper abdominal pain, unspecified (principal); R42 Dizziness and giddiness; I48.91 Unspecified atrial fibrillation; E78.00 Pure hypercholesterolemia, unspecified; I10 Essential (primary) hypertension; R73.03 Prediabetes; Z90.49 Acquired absence of other specified parts of digestive tract; Z86.718 Personal history of other venous thrombosis and embolism
CPT/HCPCS: 99285; 96374; 36415; 83690; 85025; 80053; 81001; 74177; J2930